=== PATIENT | female | born 1955 | race Caucasian/White ===

== ENCOUNTER 2016-09-19 15:43 | Observation (INO) | payer OTHER ==
[2016-09-19] MEDS ORDERED: SODIUM CHLORIDE 0.9% 1,000 ML IV STA (16:13)
[2016-09-19] MEDS ORDERED: SODIUM CHLORIDE 0.9% 500 ML IV STA (16:13)
--- NOTE | 2016-09-19 16:17 | ED ---
SOB HPI - General Chief Complaint: Shortness of Breath Stated Complaint: SOB Chest Pain Time Seen by Provider: 09/19/16 15:56 Source: patient, EMS Mode of arrival: EMS Limitations: no limitations - History of Present Illness Initial Comments: She came in with the shortness of breath any chest pain, chest pain started last night and chest pain is worse when she takes a deep breaths also she is coughing bringing up some phlegm, denies any fever no chills. No headaches no migraines no abdominal pain no frequency urgency dysuria dysuria no sinus symptoms of TIA or CVA - Related Data Home Medications Medication Instructions Recorded Confirmed levETIRAcetam [Keppra] 1,000 mg PO BID 12/19/13 09/19/16 Epitol 200 mg PO BID 06/30/16 09/19/16 Allergies Allergy/AdvReac Type Severity Reaction Status Date / Time No Known Allergies Allergy Verified 09/19/16 16:38 Review of Systems ROS Statement: Those systems with pertinent positive or pertinent negative responses have been documented in the HPI. ROS Other: All systems not noted in ROS Statement are negative. Past Medical History Past Medical History: COPD, Seizure Disorder Additional Past Medical History / Comment(s): Anemia History of Any Multi-Drug Resistant Organisms: None Reported Past Surgical History: No Surgical Hx Reported Additional Past Surgical History / Comment(s): Lung surgery Past Anesthesia/Blood Transfusion Reactions: No Reported Reaction Past Psychological History: Anxiety Smoking Status: Never smoker Past Alcohol Use History: None Reported Past Drug Use History: None Reported - Past Family History Mother Family Medical History: No Reported History General Exam - General Exam Comments Initial Comments: General: The patient is awake and alert, in no distress, looks pale and tired Skin: Skin is warm and dry and no rashes or lesions are noted. Eye: Pupils are equal, round and reactive to light, extra-ocular movements are intact; there is normal conjunctiva bilaterally. Ears, nose, mouth and throat: There are moist mucous membranes and no oral lesions. Neck: The neck is supple, there is no tenderness or JVD. Cardiovascular: There is a regular rate and rhythm. No murmur, rub or gallop is appreciated. Respiratory: To auscultation bilateral, crease breath sounds bilaterally Gastrointestinal: Soft, non-distended, non-tender abdomen without masses or organomegaly noted. There is no rebound or guarding present. Bowel sounds are unremarkable. Back: There is no tenderness to palpation in the midline. There is no obvious deformity. Musculoskeletal: Normal ROM, no tenderness, There is no pedal edema. There is no calf tenderness or swelling. No cords were appreciated. Neurological: CN II-XII intact, Cranial nerves III through XII are intact. There are no obvious motor or sensory deficits. Coordination appears grossly intact. Speech is normal. Psychiatric: Cooperative, appropriate mood & affect, normal judgment. Limitations: no limitations Course Vital Signs 09/19/16 09/19/16 09/19/16 15:58 16:06 16:48 Temperature 98.1 F Pulse Rate 77 80 Respiratory 18 18 18 Rate Blood Pressure 165/76 177/83 O2 Sat by Pulse 95 100 Oximetry EKG is normal sinus rhythm ventricular rate is 79 IL interval is 174 QRS duration is 70 QT/QTc is 362/450, degree of this EKG does not show any ST elevation or ST depression Medical Decision Making - Lab Data Result diagrams: 09/19/16 15:54 09/19/16 15:54 Lab Results 09/19/16 09/19/16 09/19/16 Range/Units 15:54 15:54 15:54 WBC 5.6 (3.8-10.6) k/uL RBC 3.88 (3.80-5.40) m/uL Hgb 12.2 (11.4-16.0) gm/dL Hct 36.4 (34.0-46.0) % MCV 94.0 (80.0-100.0) fL MCH 31.4 (25.0-35.0) pg MCHC 33.4 (31.0-37.0) g/dL RDW 12.2 (11.5-15.5) % Plt Count 233 (150-450) k/uL Neutrophils % 63 % Lymphocytes % 22 % Monocytes % 11 % Eosinophils % 2 % Basophils % 1 % Neutrophils # 3.5 (1.3-7.7) k/uL Lymphocytes # 1.2 (1.0-4.8) k/uL Monocytes # 0.6 (0-1.0) k/uL Eosinophils # 0.1 (0-0.7) k/uL Basophils # 0.1 (0-0.2) k/uL PT (9.0-12.0) sec INR (<1.1) APTT (22.0-30.0) sec D-Dimer (<0.60) mg/L FEU Sodium 141 (137-145) mmol/L Potassium 3.8 (3.5-5.1) mmol/L Chloride 103 (98-107) mmol/L Carbon Dioxide 27 (22-30) mmol/L Anion Gap 11 mmol/L BUN 10 (7-17) mg/dL Creatinine 0.82 (0.52-1.04) mg/dL Est GFR (MDRD) Af Amer >60 (>60 ml/min/1.73 sqM) Est GFR (MDRD) Non-Af >60 (>60 ml/min/1.73 sqM) Glucose 92 (74-99) mg/dL Calcium 8.4 (8.4-10.2) mg/dL Total Bilirubin 0.3 (0.2-1.3) mg/dL AST 23 (14-36) U/L ALT 28 (9-52) U/L Alkaline Phosphatase 81 (38-126) U/L Total Creatine Kinase 95 (30-135) U/L CK-MB (CK-2) 0.7 (0.0-2.4) ng/mL CK-MB (CK-2) Rel Index 0.7 Troponin I <0.012 (0.000-0.034) ng/mL NT-Pro-B Natriuret Pep pg/mL Total Protein 6.7 (6.3-8.2) g/dL Albumin 3.7 (3.5-5.0) g/dL 09/19/16 09/19/16 Range/Units 15:54 15:54 WBC (3.8-10.6) k/uL RBC (3.80-5.40) m/uL Hgb (11.4-16.0) gm/dL Hct (34.0-46.0) % MCV (80.0-100.0) fL MCH (25.0-35.0) pg MCHC (31.0-37.0) g/dL RDW (11.5-15.5) % Plt Count (150-450) k/uL Neutrophils % % Lymphocytes % % Monocytes % % Eosinophils % % Basophils % % Neutrophils # (1.3-7.7) k/uL Lymphocytes # (1.0-4.8) k/uL Monocytes # (0-1.0) k/uL Eosinophils # (0-0.7) k/uL Basophils # (0-0.2) k/uL PT 9.9 (9.0-12.0) sec INR 1.0 (<1.1) APTT 23.4 (22.0-30.0) sec D-Dimer 0.27 (<0.60) mg/L FEU Sodium (137-145) mmol/L Potassium (3.5-5.1) mmol/L Chloride (98-107) mmol/L Carbon Dioxide (22-30) mmol/L Anion Gap mmol/L BUN (7-17) mg/dL Creatinine (0.52-1.04) mg/dL Est GFR (MDRD) Af Amer (>60 ml/min/1.73 sqM) Est GFR (MDRD) Non-Af (>60 ml/min/1.73 sqM) Glucose (74-99) mg/dL Calcium (8.4-10.2) mg/dL Total Bilirubin (0.2-1.3) mg/dL AST (14-36) U/L ALT (9-52) U/L Alkaline Phosphatase (38-126) U/L Total Creatine Kinase (30-135) U/L CK-MB (CK-2) (0.0-2.4) ng/mL CK-MB (CK-2) Rel Index Troponin I (0.000-0.034) ng/mL NT-Pro-B Natriuret Pep 317 pg/mL Total Protein (6.3-8.2) g/dL Albumin (3.5-5.0) g/dL Critical Care Time Total Critical Care Time: 35 Critical Care Time: I reassessed the patient and [id number], pain has decreased but it hasn't resolved, reviewed all her labs including vitals, d-dimer, troponin, compressive metabolic panel, EKG, chest x-ray x-ray does show some atelectasis is not sure he said early pneumonia she still complaining about left side of the chest right over the pericardium dysuria the pain is considering that and get hold of Dr. Kramer her family doctor at bedtime heparinize her and get a cardiology consult him morphine and nitro did help her I feel under the circumstances this is angina Disposition Clinical Impression: Chest pain, Shortness of breath Disposition: ADMITTED IP TO THIS HOSP Condition: Fair
[2016-09-19] MEDS ORDERED: MORPHINE SULFATE 2 MG/ML SYRINGE IVP ONE (16:19)
[2016-09-19] MEDS ORDERED: MORPHINE SULFATE 2 MG/ML SYRINGE IVP PRN ×2 (16:19→18:30)
[2016-09-19] MEDS ORDERED: NITROGLYCERIN 0.4MG/HR PATCH TRANSDERM STA (16:21)
[2016-09-19 16:31] LABS: Basophils # (A) 0.1 k/uL (0-0.2); Basophils % (A) 1 %; CH 33.2; CHCM 35.5; Eosinophils # (A) 0.1 k/uL (0-0.7); Eosinophils % (A) 2 %; HCT 36.4 % (34.0-46.0); HDW 2.61; HGB 12.2 gm/dL (11.4-16.0); Luc # (Auto) 0.13; Luc % (Auto) 2; Lymphocytes # (A) 1.2 k/uL (1.0-4.8); Lymphocytes % (A) 22 %; MCH 31.4 pg (25.0-35.0); MCHC 33.4 g/dL (31.0-37.0); Mean Platelet Volume 7.5; Monocytes # (A) 0.6 k/uL (0-1.0); Monocytes % (A) 11 %; Neutrophils # (A) 3.5 k/uL (1.3-7.7); Neutrophils % (A) 63 %; RBC 3.88 m/uL (3.80-5.40); RDW 12.2 % (11.5-15.5); WBC 5.6 k/uL (3.8-10.6); WBC (Perox) 6.09
--- NOTE | 2016-09-19 16:31 | XR ---
EXAMINATION TYPE: XR chest 2V DATE OF EXAM: 09/19/2016 4:24 PM HISTORY: Cough and congestion. REFERENCE: Previous study dated 06/30/2016. FINDINGS: There are atelectatic changes at both lung bases as well as in the left midlung. I do not s ee evidence of lobar consolidation. The heart is not enlarged. Pleural spaces are clear. IMPRESSION: BILATERAL AREAS OF ATELECTATIC CHANGE.
[2016-09-19 16:42] LABS: ALT 28 U/L (9-52); AST 23 U/L (14-36); Alkaline Phosphatase 81 U/L (38-126); Anion Gap 11 mmol/L; Blood Urea Nitrogen 10 mg/dL (7-17); Calcium 8.4 mg/dL (8.4-10.2); Carbon Dioxide 27 mmol/L (22-30); Chloride 103 mmol/L (98-107); Glucose 92 mg/dL (74-99); Non-African American GFR(MDRD) >60 (>60 ml/min/1.73 sqM); Potassium 3.8 mmol/L (3.5-5.1); Sodium 141 mmol/L (137-145); Total Bilirubin 0.3 mg/dL (0.2-1.3); Total Protein 6.7 g/dL (6.3-8.2)
[2016-09-19 16:51] LABS: Creatine Kinase 95 U/L (30-135)
[2016-09-19 17:04] LABS: Creatine Kinase MB 0.7 ng/mL (0.0-2.4); Troponin I <0.012 ng/mL (0.000-0.034)
[2016-09-19 17:14] LABS: Partial Thromboplastin Time 23.4 sec (22.0-30.0); Prothrombin Time 9.9 sec (9.0-12.0)
[2016-09-19] MEDS ORDERED: HEPARIN SODIUM,PORCINE/D5W PMX 25,000 UNIT in DEXTROSE/WATER 1 500ML.BAG IV SCH (18:30)
[2016-09-19] MEDS ORDERED: HEPARIN SODIUM,PORCINE 5,000 UNIT/ML 1 ML VIAL IV ONE (18:30)
[2016-09-19] MEDS ORDERED: NITROGLYCERIN SL TABS 0.4 MG TAB SUBLINGUAL PRN (18:30)
[2016-09-19 21:45] VITALS: BMI 22.6
[2016-09-19] MEDS ORDERED: ZOLPIDEM 5 MG TAB PO PRN (21:59)
[2016-09-19] MEDS: ACETAMINOPHEN TAB 325 MG TAB PO PRN (22:13)
[2016-09-19] MEDS: carBAMazepine 200 MG TAB PO SCH (22:14)
[2016-09-19] MEDS: guaiFENesin 600 MG TABLET.ER PO SCH (22:14)
[2016-09-19] MEDS: levETIRAcetam 500 MG TAB PO SCH (22:14)
[2016-09-19] MEDS ORDERED: methylPREDNISolone SOD SUCCI 125 MG/2 ML VIAL IM ONE (22:15)
[2016-09-19 23:07] LABS: Creatine Kinase 78 U/L (30-135)
[2016-09-19 23:21] LABS: Creatine Kinase MB 0.5 ng/mL (0.0-2.4); Troponin I <0.012 ng/mL (0.000-0.034)
[2016-09-19] MEDS: methylPREDNISolone SOD SUCCI 125 MG/2 ML VIAL IV SCH (23:23)
[2016-09-20 04:29] LABS: Creatine Kinase 93 U/L (30-135)
[2016-09-20 04:43] LABS: Creatine Kinase MB 0.6 ng/mL (0.0-2.4); Troponin I <0.012 ng/mL (0.000-0.034)
[2016-09-20 04:44] LABS: Cholesterol 140 mg/dL (<200); HDL Cholesterol 74 mg/dL (40-60); Triglycerides 41 mg/dL (<150)
--- NOTE | 2016-09-20 08:50 | CONS ---
DATE OF CONSULTATION: Bisi is a 61-year-old lady with history of seizure disorder, who came to hospital complaining of chest pain. She states that she has been having cough, nasal congestion for the last one week and had been coughing and has had some sharp, atypical pain associated with cough. She is admitted to hospital with unstable angina and Cardiology had been consulted for the same. The patient does not have exertional angina. There is no history of shortness of breath, paroxysmal nocturnal dyspnea or orthopnea. D-dimer is negative. Three sets of cardiac enzymes are negative. BNP is 317. Past medical history is negative for hypertension, diabetes, dyslipidemia. Medications include Keppra and Epitol. ALLERGIES: There are no known drug allergies. FAMILY HISTORY: Negative for premature coronary artery disease. SOCIAL HISTORY: She denies current smoking, EtOH abuse, or drug abuse. REVIEW OF SYSTEMS: HEENT: Unremarkable. CARDIAC: As described above. RESPIRATORY: Negative. GI: Negative. GENITOURINARY: Negative. ALLERGY/IMMUNOLOGICAL: Negative. MUSCULOSKELETAL: Negative. ENDOCRINE: Negative. HEMATOLOGICAL: Negative. DERMATOLOGICAL: Negative. CONSTITUTIONAL: Negative. The rest of the system review is not relevant. On exam, comfortable at rest. Vital signs are stable. There is no jugular venous distention. Carotid upstroke is normal. There is no bruit. Chest is clear to auscultation and percussion. Heart exam reveals first and second heart sounds. No gallop. No murmur, no rub. Abdomen is soft, nontender. Exam of extremities did not reveal edema. Peripheral pulses are felt. Labs how a hemoglobin of 12.2, platelet count is 233. Potassium is 3.8. Creatinine is 0.82. Three sets of troponins are negative. EKG is unremarkable. LDL is 58. ASSESSMENT: 1. Precordial chest pain, atypical, probably noncardiac. 2. Upper respiratory tract infection that seems to have resolved. PLAN: I am going to obtain a 2-D echocardiogram on her to rule out any pericardial disease and regular treadmill stress test to rule out ischemic heart disease. If this workup is negative, she can be discharged home and outpatient followup arranged through our office. Thank you for allowing us to participate in the care of this pleasant lady.
--- NOTE | 2016-09-20 11:57 | ECHOF ---
Referral Reason:cp MEASUREMENTS -------- HEIGHT: 157.5 cm WEIGHT: 56.7 kg BP: 172/86 RVIDd: 2.3 cm (< 3.3) IVSd: 1.0 cm (0.6 - 1.1) LVIDd: 3.6 cm (3.9 - 5.3) LVPWd: 1.0 cm (0.6 - 1.1) IVSs: 1.2 cm LVIDs: 2.6 cm LVPWs: 1.5 cm LAESV Index (A-L): 25.74 ml/m Ao Diam: 2.6 cm (2.0 - 3.7) AV Cusp: 2.0 cm (1.5 - 2.6) MV EXCURSION: 15.228 mm (> 18.000) MV EF SLOPE: 118 mm/s (70 - 150) EPSS: 0.5 cm MV E Tripp: 0.82 m/s MV DecT: 188 ms MV A Tripp: 0.73 m/s MV E/A Ratio: 1.12 FINDINGS -------- Sinus rhythm. This was a technically good study. The left ventricular size is normal. Left ventricular wall thickness is normal. Overall left ventricular systolic function is normal with, an EF between 60 - 65 %. The right ventricle is normal in size and function. The left atrium is normal in size. Normal LA size by volume 22+/-6 ml/m2. The right atrium is normal in size. The aortic valve is trileaflet and appears structurally normal. Mild mitral regurgitation is present. Trace tricuspid regurgitation present. The pulmonic valve was not well visualized. The aortic root size is normal. Normal inferior vena cava with normal inspiratory collapse consistent with estimated right atrial pressure of 5 mmHg. There is no pericardial effusion. CONCLUSIONS -------- 1. Sinus rhythm. 2. Mild mitral regurgitation is present. 3. Trace tricuspid regurgitation present. 4. The pulmonic valve was not well visualized. 5. The aortic root size is normal. 6. Normal inferior vena cava with normal inspiratory collapse consistent with estimated right atrial pressure of 5 mmHg. 7. There is no pericardial effusion. 8. This was a technically good study. 9. The left ventricular size is normal. 10. Left ventricular wall thickness is normal. 11. Overall left ventricular systolic function is normal with, an EF between 60 - 65 %. 12. The right ventricle is normal in size and function. 13. Normal LA size by volume 22+/-6 ml/m2. 14. The right atrium is normal in size. 15. The aortic valve is trileaflet and appears structurally normal. TIRE MOLDER: Jovana López RDCS
[2016-09-20] MEDS: methylPREDNISolone SOD SUCCI 125 MG/2 ML VIAL IV SCH ×4 (12:22→23:46)
[2016-09-20] MEDS: levETIRAcetam 500 MG TAB PO SCH ×2 (14:27→20:25)
[2016-09-20] MEDS: carBAMazepine 200 MG TAB PO SCH ×2 (14:28→20:25)
[2016-09-20] MEDS: ASPIRIN 325 MG TAB PO SCH (14:29)
[2016-09-20] MEDS: guaiFENesin 600 MG TABLET.ER PO SCH ×2 (14:29→20:25)
[2016-09-20] MEDS: ACETAMINOPHEN TAB 325 MG TAB PO PRN ×2 (14:30→21:23)
--- NOTE | 2016-09-20 14:51 | EST ---
DATE OF SERVICE: 09/20/2016 AGE: 61Y SEX: F HT: 62" WT: 126 lbs. Protocol Fred: X Other: Stage: II Dur. of Exercise: 3:13 *Heart Rate Blood Pressure *Rest: 84 Rest: 177/88 * *Max. Achieved: 144 Maximum BP: 198/97 85% PMHR: 136 100% PMHR: 160 *METS: 3.6 INDICATIONS: Chest pain. MEDICATIONS: Keppra. STRESS DATA: Heart rate 84, pressure is 177/88 mmHg. Baseline EKG shows sinus rhythm. The patient exercised on the treadmill according to Fred protocol for a total of 3 minutes and 13 seconds and achieved 3.6 METs. Max heart rate was 144, which is about 90% of maximum predicted heart rate. Maximum blood pressure was 198/97 mmHg. Clinically, the patient did not have any symptoms of chest pain or discomfort and the EKG did not show any significant ST or T-wave abnormalities consistent with ischemia. CONCLUSION: 1. Poor exercise capacity. 2. Normal EKG in response to exercise.
--- NOTE | 2016-09-20 14:51 | P.HPIM ---
History of Present Illness H&P Date: 09/20/16 Chief Complaint: Shortness of breath, chest pain Patient is a 61-year-old white female, patient of Dr. Turner in the outpatient setting with medical history significant for COPD, anemia, and seizure disorder. Patient presented to the emergency department via EMS with complaints of shortness of breath and chest pain exacerbated with coughing and taking deep breaths 1 day. No history of fevers, chills, abdominal pain, urinary urgency, dysuria, or hematuria. EKG on admission with evidence of normal sinus rhythm but no evidence of ST elevation or depression. Chest x-ray with evidence of bilateral areas of atelectatic changes at both lung bases as well as in the mid left lung with no evidence of lobar consolidation. Admission labs unremarkable. Troponins negative 3. Patient was admitted to the selective care unit on IV heparin with consult to cardiology. Upon examination, patient complains of headache, cough, and congestion. Patient complains of left pleuritic pain with cough. Denies chills, fevers, nausea, vomiting, abdominal pain, leg swelling, numbness or tingling. Cardiology has seen and evaluated patient and patient is scheduled for a stress test. Patient did have an echocardiogram with evidence of preserved left ventricular systolic function with an EF between 60-65%. Past Medical History Past Medical History: COPD, Seizure Disorder Additional Past Medical History / Comment(s): Anemia History of Any Multi-Drug Resistant Organisms: None Reported Past Surgical History: No Surgical Hx Reported Additional Past Surgical History / Comment(s): Lung surgery, ENLARGED LYMPH NODE REMOVED BY DR. LUNDBERG Past Anesthesia/Blood Transfusion Reactions: No Reported Reaction Past Psychological History: Anxiety Smoking Status: Never smoker Past Alcohol Use History: None Reported Past Drug Use History: None Reported - Past Family History Mother Family Medical History: No Reported History Medications and Allergies Home Medications Medication Instructions Recorded Confirmed Type levETIRAcetam [Keppra] 1,000 mg PO BID 12/19/13 09/19/16 History Epitol 200 mg PO BID 06/30/16 09/19/16 History Allergies Allergy/AdvReac Type Severity Reaction Status Date / Time No Known Allergies Allergy Verified 09/19/16 16:38 Physical Exam Vitals: Vital Signs Temp Pulse Pulse Resp BP BP Pulse Ox 09/20/16 13:25 99 09/20/16 11:35 97.5 F L 72 16 141/74 99 09/20/16 07:55 97.9 F 83 16 138/80 99 09/20/16 03:35 97.4 F L 74 18 116/62 95 09/19/16 23:03 97.9 F 75 18 157/72 96 09/19/16 20:56 97.6 F 78 18 129/72 97 09/19/16 18:46 98.1 F 78 18 145/77 97 Intake and Output 09/19/16 09/20/16 09/20/16 22:59 06:59 14:59 Intake Total 13.49 187.131 Balance 13.49 187.131 Intake: IV 13.49 94.5 Heparin Sodium,Porcine/ 13.49 94.5 D5w Pmx 25,000 unit In Dextrose/Water 1 500ml. bag @ 12 UNITS/KG/HR 13. 49 mls/hr IV .Q24H JESSICA Rx #:[id number] Intake, IV Titration 92.631 Amount Heparin Sodium,Porcine/ 92.631 D5w Pmx 25,000 unit In Dextrose/Water 1 500ml. bag @ 12 UNITS/KG/HR 13. 49 mls/hr IV .Q24H JESSICA Rx #:[id number] Other: Voiding Method Toilet Toilet # Voids 1 Weight 56.245 kg 56.8 kg GENERAL: Pt awake and alert, lying in bed, appears tired, in no acute distress. HEAD: Atraumatic, normocephalic. EYES: Pupils equal, round, and reactive to light, extraocular movements intact, sclera anicteric, conjunctiva are normal. ENT: Oropharynx clear without exudates. Moist mucous membranes. NECK:Normal range of motion, supple without lymphadenopathy or JVD. LUNGS: Breath sounds diminished with fine crackles to posterior lobes bilaterally. Cough harsh. HEART: Heart S1, S2, no S3 or S4. Regular rate and rhythm. No murmurs, rubs or gallops. ABDOMEN: Soft, nontender, nondistended, normoactive bowel sounds. No guarding, no rebound. EXTREMITIES: 2+ peripheral pulses. No edema. No calf tenderness. NEUROLOGICAL: Pt oriented x 3. No focal deficits. Strength and sensation grossly intact. Speech is normal. PSYCH: Appropriate mood, normal affect, cooperative, normal judgment. SKIN: Warm, dry, intact. Normal turgor. No rashes or lesions. Results CBC & Chem 7: 09/19/16 15:54 09/19/16 15:54 Labs: Abnormal Lab Results - Last 24 Hours (Table) 09/20/16 09/20/16 09/20/16 Range/Units 01:01 03:40 06:35 APTT 54.8 H 47.9 H (22.0-30.0) sec HDL Cholesterol 74 H (40-60) mg/dL Chest x-ray: report reviewed Thrombosis Risk Factor Assmnt - DVT/VTE Prophylaxis DVT/VTE Prophylaxis: Pharmacologic Prophylaxis ordered - Choose All That Apply Any of the Below Risk Factors Present?: Yes Each Factor Represents 1 point: Abnormal pulmonary function (COPD), Age 41-60 years Other Risk Factors: No Thrombosis Risk Factor Assessment Total Risk Factor Score: 2 Thrombosis Risk Factor Assessment Level: Low Risk Assessment and Plan Plan: Impression and plan: 1. Chest discomfort, present on admission, doubt cardiac in nature. Troponins [address] negative. [address] with no ST-T elevation or depression. Cardiology has seen and evaluated patient. Patient is scheduled to undergo stress test. 2. Cough and congestion suspect secondary to tracheobronchitis. Patient afebrile. Chest x-ray with evidence of atelectasis without focal consolidation. Continue Mucinex, start patient on IV Solu-Medrol 60 mg every 6 hours. Continue IV hydration. Obtain pulmonary consult. 3. Dyslipidemia. 4. History of COPD. 5. History of seizure disorder. Continue Tegretol and Keppra. 6. History of anxiety. 7. GI prophylaxis. Continue Pepcid. 8. DVT prophylaxis. Continue heparin. 9. Repeat CBC and BMP in a.m. The above impression and plan have been discussed and directed by Dr. Turner. Claritza JUAREZ acting as scribe for Dr. Turner.
[2016-09-20 16:58] LABS: Glucose,Whole Blood 121 mg/dL (75-99)
[2016-09-20] MEDS: INSULIN LISPRO (humaLOG) 300 UNIT/3 ML VIAL SQ SCH ×2 (17:37→21:13)
[2016-09-20 18:28] LABS: Hemoglobin A1C 5.4 % (4.2-6.1)
--- NOTE | 2016-09-20 20:27 | CONS ---
DATE OF CONSULTATION: REASON FOR CONSULTATION: Acute COPD exacerbation and shortness of breath. HISTORY OF PRESENTING ILLNESS: Ms. Bisi Devlin is seen, evaluated and examined. This is a 61-year-old female who presented into the emergency department with increasing shortness of breath and not feeling well. The patient symptoms predominantly started several days ago and has been progressive to a point that started having some chest tightness. With those problems patient presented to the emergency department and was evaluated and subsequently admitted to the hospital. Past medical history is significant for seizure disorder and chronic obstructive pulmonary disease. PAST SURGICAL HISTORY: Unremarkable. FAMILY HISTORY AND SOCIAL HISTORY: Otherwise unremarkable and noncontributory. Denies any smoking, ethanol abuse. ALLERGIES: No known drug allergy. Medications at home include: 1. Epitol 200 mg 2 times a day. 2. Levetiracetam 1 gram 2 times a day. REVIEW OF SYSTEMS: Otherwise unremarkable and noncontributory. SHOW DESIGN SUPERVISOR: Denies any loss of consciousness, hemiparesis. CARDIORESPIRATORY: As dictated above, significant cough, congestion, chest pain and chest tightness. GI/: Otherwise unremarkable and noncontributory. Musculoskeletal/dermatological: Unremarkable and noncontributory. MEDICATIONS: Currently include: 1. Tylenol as needed. 2. Aspirin 325 mg daily. 3. Tegretol 200 b.i.d. 2 times a day. 4. Mucinex two times a day. 5. Subcu heparin for DVT prophylaxis. 6. Sliding scale insulin. 7. Keppra 1 gram 2 times a day. 8. Solu-Medrol 60 q.6 hourly. 9. Morphine 2 mg q.4 p.r.n. 10. Also on Ambien. On examination, most recent vitals include blood pressure is 139/77, respiratory rate 16 to 18, heart rate is 97, temperature 97, saturation of 99% on room air. HEENT: Otherwise unremarkable. NECK: Supple without lymphadenopathy or jugular venous distention or carotid bruits. LUNGS: Bilateral good air entry is present, expiratory wheezing and rhonchi are present. HEART: Regular rate and rhythm. S1 and S2 audible. ABDOMEN: Soft. No rebound or rigidity. EXTREMITIES: +1 peripheral pulses. NEUROLOGICAL EXAMINATION: Otherwise, awake and alert. No focal neurological deficit. Chest x-ray suggestive of possible left lower lobe mid lung field pneumonia versus atelectasis. Other laboratory data reviewed include echocardiogram revealed ejection fraction of 60 to 65% otherwise, fairly unremarkable. Labs are reviewed. CBC is within normal limits. Glucose 121. Chemistry also within normal limits. HDL is 74. IMPRESSION: 1. Left lower lobe pneumonia. Would recommend the patient start on Zithromax and Rocephin. Continue steroids and breathing treatments. Will check patient for influenza A and B as well. 2. History of seizure disorder. Overall is stable. 3. Chest pain likely related to above. PLAN AND RECOMMENDATION: As above. Continue supportive care. Cardiovascular service is following this patient closely. Would check d-dimer as well. If it is elevated, consider doing a spiral CT scan of the chest pain.
[2016-09-20 20:28] LABS: Glucose,Whole Blood 165 mg/dL (75-99)
[2016-09-20] MEDS: HEPARIN SODIUM,PORCINE 5,000 UNIT/ML 1 ML VIAL SQ SCH (21:13)
[2016-09-21] MEDS: methylPREDNISolone SOD SUCCI 125 MG/2 ML VIAL IV SCH ×2 (05:22→11:11)
[2016-09-21 06:08] LABS: Glucose,Whole Blood 120 mg/dL (75-99)
[2016-09-21 06:53] LABS: Glucose,Whole Blood 120 mg/dL (75-99)
[2016-09-21] MEDS: INSULIN LISPRO (humaLOG) 300 UNIT/3 ML VIAL SQ SCH ×4 (08:04→21:31)
[2016-09-21] MEDS: carBAMazepine 200 MG TAB PO SCH ×2 (08:05→20:09)
[2016-09-21] MEDS: AZITHROMYCIN 250 MG TAB PO SCH (08:05)
[2016-09-21] MEDS: ASPIRIN 325 MG TAB PO SCH (08:05)
[2016-09-21] MEDS: HEPARIN SODIUM,PORCINE 5,000 UNIT/ML 1 ML VIAL SQ SCH ×2 (08:05→20:08)
[2016-09-21] MEDS: guaiFENesin 600 MG TABLET.ER PO SCH ×2 (08:05→20:09)
[2016-09-21] MEDS: levETIRAcetam 500 MG TAB PO SCH ×2 (08:05→20:08)
[2016-09-21 08:06] LABS: Basophils % (A) 0 %; CH 32.8; CHCM 34.4; Eosinophils % (A) 0 %; HDW 2.64; Luc # (Auto) 0.04; Luc % (Auto) 1; Lymphocytes % (A) 12 %; MCHC 33.3 g/dL (31.0-37.0); Mean Platelet Volume 7.4; Monocytes # (A) 0.2 k/uL (0-1.0); Monocytes % (A) 2 %; Neutrophils # (A) 6.8 k/uL (1.3-7.7); Neutrophils % (A) 85 %; RBC 3.75 m/uL (3.80-5.40); WBC (Perox) 8.75
[2016-09-21 08:19] LABS: Anion Gap 15 mmol/L; Blood Urea Nitrogen 12 mg/dL (7-17); Calcium 9.1 mg/dL (8.4-10.2); Carbon Dioxide 23 mmol/L (22-30); Chloride 105 mmol/L (98-107); Glucose 123 mg/dL (74-99); Non-African American GFR(MDRD) >60 (>60 ml/min/1.73 sqM); Potassium 3.8 mmol/L (3.5-5.1); Sodium 143 mmol/L (137-145)
[2016-09-21 11:59] LABS: Glucose,Whole Blood 88 mg/dL (75-99)
--- NOTE | 2016-09-21 12:45 | PN ---
Bisi Devlin is seen, evaluated, examined. She is a 61-year-old female with problems associated with cough, congestion, shortness of breath. She is doing slightly better now and chest pain is improved. Blood pressure 150/70, respiratory rate 16, pulse 90, temperature 98, saturation of 98% on room air. HEENT: Unremarkable. NECK: Supple. LUNGS: Good air entry bilaterally. HEART: Regular rate and rhythm. S1 and S2 audible. ABDOMEN: Soft. No rebound or rigidity. EXTREMITIES: +1 peripheral pulses. NEUROLOGICAL EXAMINATION: Awake and alert. On forced expiration, fine wheezing are present. LABORATORY DATA: Reviewed. White cell count 8000, hemoglobin 12, hematocrit 36, platelets 344,000. Chemistry within normal limits. Influenza A and B are both negative. Last chest x-ray performed revealed bibasilar pneumonia. IMPRESSION: Pneumonia. Continue antibiotics, breathing and steroids for now. Continue supportive care. Hopefully in next 24 hours will lower down the dose of steroids. Other issues include seizure disorder, overall stable. Will follow.
[2016-09-21] MEDS ORDERED: SODIUM CHLORIDE 0.65% NASAL SPRAY 44 ML BTL NASAL PRN (13:33)
--- NOTE | 2016-09-21 14:11 | P.PN ---
Subjective Principal diagnosis: Pneumonia, community acquired Patient is a 61-year-old white female, patient of Dr. Turner in the outpatient setting with medical history significant for COPD, anemia, and seizure disorder. Patient presented to the emergency department via EMS with complaints of shortness of breath and chest pain exacerbated with coughing and taking deep breaths 1 day. No history of fevers, chills, abdominal pain, urinary urgency, dysuria, or hematuria. EKG on admission with evidence of normal sinus rhythm but no evidence of ST elevation or depression. Chest x-ray with evidence of bilateral areas of atelectatic changes at both lung bases as well as in the mid left lung with no evidence of lobar consolidation. Admission labs unremarkable. Troponins negative 3. Patient was admitted to the selective care unit on IV heparin with consult to cardiology. Patient underwent a cardiac stress test which was negative. Echocardiogram showed preserved left ventricular systolic function with an EF between 60-65%. Dr. Batres from pulmonary service was consulted and patient was started on Zithromax and Rocephin for possible mid left lung and left lower lobe pneumonia. Patient did test negative for influenza A and B. Upon examination, patient is feeling better. Patient states she did cough up yellow sputum. Patient states her pleuritic chest pain has mostly resolved. Denies chills, fevers, nausea, vomiting, or abdominal pain. Patient reports good appetite. Objective - Vital Signs Vital signs: Vital Signs Temp 98.7 F 09/21/16 07:00 Pulse 90 09/21/16 07:00 Resp 16 09/21/16 07:00 BP 149/70 09/21/16 07:00 Pulse Ox 98 09/21/16 07:00 Intake & Output 09/20/16 09/21/16 09/21/16 18:59 06:59 18:59 Other: # Voids 2 - Exam GENERAL: Pt awake and alert, lying in bed, appears tired, in no acute distress. HEAD: Atraumatic, normocephalic. EYES: Pupils equal, round, and reactive to light, sclera anicteric, conjunctiva are normal. ENT: Moist mucous membranes. NECK:Supple without lymphadenopathy or JVD. LUNGS: Breath sounds diminished with fine crackles to posterior lobes bilaterally. HEART: Heart S1, S2, no S3 or S4. Regular rate and rhythm. No murmurs, rubs or gallops. ABDOMEN: Soft, nontender, nondistended, normoactive bowel sounds. No guarding, no rebound. EXTREMITIES: 2+ peripheral pulses. Trace edema to bilateral lower extremities. No calf tenderness. NEUROLOGICAL: Pt oriented x 3. No focal deficits. Strength and sensation grossly intact. Speech is normal. PSYCH: Appropriate mood, normal affect, cooperative, normal judgment. SKIN: Warm, dry, intact. Normal turgor. No rashes or lesions. - Labs CBC & Chem 7: 09/21/16 07:44 09/21/16 07:44 Assessment and Plan Plan: Impression and plan: 1. Chest discomfort, present on admission, suspect secondary to costochondritis. Troponins [address] negative[address] with no ST-T elevation or depression. Cardiology has seen and evaluated patient. Stress test negative. 2. Suspect left mid lung and left lower lobe pneumonia, community acquired. Continue antibiotics, decrease IV Solu-Medrol to 40 mg every 8 hours, continue Mucinex, continue nebulized updrafts, continue IV hydration. 3. Dyslipidemia. 4. History of COPD. 5. History of seizure disorder. Continue Tegretol and Keppra. 6. History of anxiety. 7. GI prophylaxis. Continue Pepcid. 8. DVT prophylaxis. Continue subcu heparin. 9. Repeat CBC and BMP in a.m. The above impression and plan have been discussed and directed by Dr. Turner. Claritza JUAREZ acting as scribe for Dr. Turner.
[2016-09-21] MEDS: ACETAMINOPHEN TAB 325 MG TAB PO PRN (16:11)
[2016-09-21 17:16] LABS: Glucose,Whole Blood 100 mg/dL (75-99)
[2016-09-21 21:09] LABS: Glucose,Whole Blood 103 mg/dL (75-99)
[2016-09-21] MEDS: methylPREDNISolone SOD SUCCI 40 MG/ML 1 ML VIAL IV SCH (23:10)
[2016-09-22 02:38] LABS: Basophils % (A) 0 %; CH 32.6; CHCM 34.3; Eosinophils # (A) 0.1 k/uL (0-0.7); Eosinophils % (A) 1 %; HCT 32.8 % (34.0-46.0); HGB 11.3 gm/dL (11.4-16.0); Luc # (Auto) 0.11; Luc % (Auto) 1; Lymphocytes # (A) 1.2 k/uL (1.0-4.8); Lymphocytes % (A) 15 %; MCHC 34.5 g/dL (31.0-37.0); MCV 95.6 fL (80.0-100.0); Monocytes # (A) 0.3 k/uL (0-1.0); Monocytes % (A) 4 %; Neutrophils # (A) 6.3 k/uL (1.3-7.7); Neutrophils % (A) 79 %; RBC 3.43 m/uL (3.80-5.40); RDW 12.2 % (11.5-15.5); WBC 7.9 k/uL (3.8-10.6); WBC (Perox) 7.85
[2016-09-22 02:57] LABS: Anion Gap 9 mmol/L; Blood Urea Nitrogen 19 mg/dL (7-17); Calcium 8.8 mg/dL (8.4-10.2); Carbon Dioxide 27 mmol/L (22-30); Chloride 105 mmol/L (98-107); Glucose 117 mg/dL (74-99); Non-African American GFR(MDRD) >60 (>60 ml/min/1.73 sqM); Sodium 141 mmol/L (137-145)
[2016-09-22 07:35] LABS: Glucose,Whole Blood 116 mg/dL (75-99)
[2016-09-22 07:39] VITALS: BP 159/84; PULSE 88; RESP 20; TEMP 96.9
[2016-09-22] MEDS: INSULIN LISPRO (humaLOG) 300 UNIT/3 ML VIAL SQ SCH ×2 (07:46→13:28)
[2016-09-22] MEDS: methylPREDNISolone SOD SUCCI 40 MG/ML 1 ML VIAL IV SCH (07:50)
[2016-09-22] MEDS: levETIRAcetam 500 MG TAB PO SCH (07:50)
[2016-09-22] MEDS: HEPARIN SODIUM,PORCINE 5,000 UNIT/ML 1 ML VIAL SQ SCH (07:50)
[2016-09-22] MEDS: guaiFENesin 600 MG TABLET.ER PO SCH (07:50)
[2016-09-22] MEDS: AZITHROMYCIN 250 MG TAB PO SCH (07:50)
[2016-09-22] MEDS: ASPIRIN 325 MG TAB PO SCH (07:50)
[2016-09-22] MEDS: carBAMazepine 200 MG TAB PO SCH (07:51)
[2016-09-22] MEDS: ACETAMINOPHEN TAB 325 MG TAB PO PRN (08:01)
[2016-09-22 12:33] LABS: Glucose,Whole Blood 98 mg/dL (75-99)
--- NOTE | 2016-09-22 14:21 | P.DS ---
Providers Date of admission: 09/21/16 12:49 Expected date of discharge: 09/22/16 Attending physician: Jordi Turner Consults: Cardiology and Dr. Batres from pulmonary service Primary care physician: [facility] Course: Patient is a 61-year-old white female, patient of Dr. Turner in the outpatient setting with medical history significant for COPD, anemia, and seizure disorder. Patient presented to the emergency department via EMS with complaints of shortness of breath and chest pain exacerbated with coughing and taking deep breaths 1 day. No history of fevers, chills, abdominal pain, urinary urgency, dysuria, or hematuria. EKG on admission with evidence of normal sinus rhythm but no evidence of ST elevation or depression. Chest x-ray with evidence of bilateral areas of atelectatic changes at both lung bases as well as in the mid left lung with no evidence of lobar consolidation. Admission labs unremarkable. Troponins negative 3. Patient was admitted to the selective care unit on IV heparin with consult to cardiology. Patient underwent a cardiac stress test which was negative. Echocardiogram showed preserved left ventricular systolic function with an EF between 60-65%. Dr. Batres from pulmonary service was consulted and patient was started on Zithromax and Rocephin for possible mid left lung and left lower lobe pneumonia. Patient did test negative for influenza A and B. patient improved significantly with IV antibiotics, IV steroids, nebulized updraft treatments, IV hydration, supportive treatment and pain management. Patient was felt stable for discharge to home with close follow-up in the outpatient setting. Discharge diagnoses: 1. Chest discomfort, present on admission, suspect secondary to costochondritis. 2. Suspect left mid lung and left lower lobe pneumonia, community acquired. 3. Dyslipidemia. 4. COPD. 5. Seizure disorder. Continue Tegretol and Keppra. 6. History of anxiety. The above impression and plan have been discussed and directed by Dr. Turner. Claritza JUAREZ acting as scribe for Dr. Turner. Pertinent Studies: EKG; chest x-ray; echocardiogram with Doppler; stress test Patient Condition at Discharge: Good Plan - Discharge Summary New Discharge Prescriptions: Amoxic-Pot Clav 875-125Mg [Augmentin 875-125] 1 tab PO Q12HR #14 tablet Azithromycin [Zithromax] 500 mg PO DAILY #3 tab guaiFENesin [Mucinex] 600 mg PO Q12HR #20 tablet.er predniSONE 0 mg PO DIRECTED #30 tab Discharge Medication List levETIRAcetam [Keppra] 1,000 mg PO BID 12/19/13 [History] Epitol 200 mg PO BID 06/30/16 [History] Amoxic-Pot Clav 875-125Mg [Augmentin 875-125] 1 tab PO Q12HR #14 tablet [Rx] Azithromycin [Zithromax] 500 mg PO DAILY #3 tab 09/22/16 [Rx] Sodium Chloride 0.65% Nasal [Deep Sea] 2 spray NASAL QID PRN #0 spray 09/22/16 [ Rx] guaiFENesin [Mucinex] 600 mg PO Q12HR #20 tablet.er 09/22/16 [Rx] predniSONE 0 mg PO DIRECTED #30 tab 09/22/16 [Rx] Follow up Appointment(s)/Referral(s): Alexis Kramer Jr, DO [Primary Care Provider] - 09/26/16 11:00 am Armando Batres MD [STAFF PHYSICIAN] - 09/29/16 (Office currently closed, please call to schedule appointment. ) Esteban Torres MD [STAFF PHYSICIAN] - 10/18/16 2:45 pm Patient Instructions/Handouts: Community Acquired Pneumonia (DC) Activity/Diet/Wound Care/Special Instructions: Regular diet Discharge Disposition: HOME SELF-CARE
== END 2016-09-22 14:13 | disposition home or self-care (01) ==
LOC: EC 15:43 → 6SEL 18:34 → 4MS4W 09-20 17:03 → OBSVTOIN 09-21 12:49 → INTOOBSV 09-21 12:49
PROVIDERS: ADMIT Family Medicine; ATTEND Family Medicine
DX: R07.89 Other chest pain (principal); R06.02 Shortness of breath; J44.9 Chronic obstructive pulmonary disease, unspecified; J98.11 Atelectasis; E78.5 Hyperlipidemia, unspecified; G40.909 Epilepsy, unspecified, not intractable, without status epilepticus; Z79.899 Other long term (current) drug therapy
CPT/HCPCS: 96365; 96366; 96375; 96376; 96361; 99291; 36415; 94760; 93005; 93017; 93306; 85379 ×2; 83880; 80061; 80053; 80048 ×2; 83036; 82550 ×2; 82553 ×2; 83605; 84484 ×2; 85025 ×3; 85610; 85730 ×2; 87502; 71020; G0378 ×5; J1644 ×5; J2920 ×2; J2930 ×2; J0696 ×3; J2270; 96367; 96372

== ENCOUNTER 2016-11-01 20:02 | Emergency (ER) | payer OTHER ==
[2016-11-01] MEDS ORDERED: SODIUM CHLORIDE 0.9% 500 ML IV STA (20:34)
[2016-11-01 20:55] LABS: Basophils # (A) 0.1 k/uL (0-0.2); Basophils % (A) 1 %; CH 32.7; Eosinophils # (A) 0.1 k/uL (0-0.7); Eosinophils % (A) 1 %; HCT 32.6 % (34.0-46.0); HDW 2.68; HGB 11.2 gm/dL (11.4-16.0); Luc # (Auto) 0.15; Luc % (Auto) 3; Lymphocytes # (A) 1.1 k/uL (1.0-4.8); Lymphocytes % (A) 19 %; MCH 32.2 pg (25.0-35.0); MCHC 34.4 g/dL (31.0-37.0); MCV 93.6 fL (80.0-100.0); Mean Platelet Volume 7.4; Monocytes # (A) 0.4 k/uL (0-1.0); Monocytes % (A) 8 %; Neutrophils # (A) 3.9 k/uL (1.3-7.7); Neutrophils % (A) 68 %; RBC 3.48 m/uL (3.80-5.40); RDW 12.2 % (11.5-15.5); WBC 5.6 k/uL (3.8-10.6); WBC (Perox) 5.95
[2016-11-01 21:03] LABS: Prothrombin Time 10.4 sec (9.0-12.0)
[2016-11-01 21:06] LABS: ALT 28 U/L (9-52); AST 25 U/L (14-36); Alkaline Phosphatase 82 U/L (38-126); Anion Gap 8 mmol/L; Blood Urea Nitrogen 8 mg/dL (7-17); Calcium 8.5 mg/dL (8.4-10.2); Carbon Dioxide 25 mmol/L (22-30); Chloride 108 mmol/L (98-107); Glucose 91 mg/dL (74-99); Magnesium 2.1 mg/dL (1.6-2.3); Non-African American GFR(MDRD) >60 (>60 ml/min/1.73 sqM); Potassium 3.9 mmol/L (3.5-5.1); Sodium 141 mmol/L (137-145); Total Bilirubin 0.4 mg/dL (0.2-1.3); Total Protein 6.6 g/dL (6.3-8.2)
[2016-11-01 21:10] LABS: Creatine Kinase 108 U/L (30-135)
--- NOTE | 2016-11-01 21:22 | ED ---
General Adult HPI - General Chief complaint: Shortness of Breath Stated complaint: hypertension,SOB Time Seen by Provider: 11/01/16 20:26 Source: patient, EMS, RN notes reviewed Mode of arrival: EMS Limitations: no limitations - History of Present Illness Initial comments: 61-year-old female presents to the emergency department with chief complaint of concern for memory lapses. Patient states that about a month ago she was diagnosed with pneumonia. Patient states that she also developed some rib issues due to continuing coughing during the pneumonia. Patient states that the symptoms have seemed to be improving however over the last 2 days she has been noticing that she will have lapses in memory. Patient states the front door to visit her today and she has even remember that happening. Patient states that she has a mild headache she states that she has mild shortness of breath but everything seems to be stable when she got sick except for these new memory losses. Patient states this time she does not have any difficulties with memories. Patient denies any history of any memory issues in the past. Patient states she was concerned due to her continued symptoms that she thought that she should be evaluated. Patient denies any recent fever, chills, shortness of breath, chest pain, back pain, abdominal pain, nausea vomiting, numbness or tingling, dysuria or hematuria, constipation or diarrhea, headaches or visual changes, or any other current symptoms. - Related Data Home Medications Medication Instructions Recorded Confirmed levETIRAcetam [Keppra] 1,000 mg PO BID 12/19/13 11/01/16 Epitol 200 mg PO BID 06/30/16 11/01/16 Previous Rx's Medication Instructions Recorded Levofloxacin [Levaquin] 500 mg PO DAILY #10 tab 11/01/16 Allergies Allergy/AdvReac Type Severity Reaction Status Date / Time No Known Allergies Allergy Verified 11/01/16 20:11 Review of Systems ROS Statement: Those systems with pertinent positive or pertinent negative responses have been documented in the HPI. ROS Other: All systems not noted in ROS Statement are negative. Past Medical History Past Medical History: COPD, Seizure Disorder Additional Past Medical History / Comment(s): Anemia History of Any Multi-Drug Resistant Organisms: None Reported Past Surgical History: No Surgical Hx Reported Additional Past Surgical History / Comment(s): Lung surgery, ENLARGED LYMPH NODE REMOVED BY DR. LUNDBERG Past Anesthesia/Blood Transfusion Reactions: No Reported Reaction Past Psychological History: Anxiety Smoking Status: Never smoker Past Alcohol Use History: None Reported Past Drug Use History: None Reported - Past Family History Mother Family Medical History: No Reported History General Exam - General Exam Comments Initial Comments: General: The patient is awake and alert, in no distress, and does not appear acutely ill. Eye: Pupils are equal, round and reactive to light, extra-ocular movements are intact; there is normal conjunctiva bilaterally. No signs of icterus. Ears, nose, mouth and throat: There are moist mucous membranes and no oral lesions. Neck: The neck is supple, there is no tenderness. Cardiovascular: There is a regular rate and rhythm. No murmur, rub or gallop is appreciated. Respiratory: Lungs are clear to auscultation, respirations are non-labored, breath sounds are equal. No wheezes, stridor, rales, or rhonchi. Gastrointestinal: Soft, non-distended, non-tender abdomen without masses or organomegaly noted. There is no rebound or guarding present. No CVA tenderness. Bowel sounds are unremarkable. Back: There is no tenderness to palpation in the midline. There is no obvious deformity. No rashes noted. Musculoskeletal: Normal ROM, no tenderness, There is no pedal edema. There is no calf tenderness or swelling. Sensation intact. Pulses equal bilaterally 2+. Neurological: CN II-XII intact, There are no obvious motor or sensory deficits. Coordination appears grossly intact. Speech is normal. Skin: Skin is warm and dry and no rashes or lesions are noted. Psychiatric: Cooperative, appropriate mood & affect, normal judgment. Limitations: no limitations Course Vital Signs 11/01/16 11/01/16 20:11 22:08 Temperature 98.9 F 98.6 F Pulse Rate 82 68 Respiratory 20 16 Rate Blood Pressure 166/84 167/71 O2 Sat by Pulse 100 99 Oximetry EKG Findings - EKG Comments: EKG Findings:: normal sinus rhythm 78 bpm, normal axis, no atopy, no S-T depressions or elevations, Medical Decision Making - Medical Decision Making 61-year-old female presents for concern about memory. It isn't patient is found of UTI which is most likely causing the patient's memory changes. We did contact Dr. Luis Hou regarding the case regarding admission and he states that he like to the patient to be sent home. At this time we discussed this with the patient and she states that she will go home if it is his request. We discussed that he would like to see her in the morning for reevaluation. We discussed that we will start her on Rocephin here and give her Levaquin for home. Patient stated that she understood and is in agreement the plan. All questions have been answered. She will be discharged. - Lab Data Result diagrams: 11/01/16 20:45 11/01/16 20:45 Lab Results 11/01/16 11/01/16 11/01/16 Range/Units 20:45 20:45 20:45 WBC 5.6 (3.8-10.6) k/uL RBC 3.48 L (3.80-5.40) m/uL Hgb 11.2 L (11.4-16.0) gm/dL Hct 32.6 L (34.0-46.0) % MCV 93.6 (80.0-100.0) fL MCH 32.2 (25.0-35.0) pg MCHC 34.4 (31.0-37.0) g/dL RDW 12.2 (11.5-15.5) % Plt Count 322 (150-450) k/uL Neutrophils % 68 % Lymphocytes % 19 % Monocytes % 8 % Eosinophils % 1 % Basophils % 1 % Neutrophils # 3.9 (1.3-7.7) k/uL Lymphocytes # 1.1 (1.0-4.8) k/uL Monocytes # 0.4 (0-1.0) k/uL Eosinophils # 0.1 (0-0.7) k/uL Basophils # 0.1 (0-0.2) k/uL PT (9.0-12.0) sec INR (<1.1) APTT (22.0-30.0) sec Sodium 141 (137-145) mmol/L Potassium 3.9 (3.5-5.1) mmol/L Chloride 108 H (98-107) mmol/L Carbon Dioxide 25 (22-30) mmol/L Anion Gap 8 mmol/L BUN 8 (7-17) mg/dL Creatinine 0.71 (0.52-1.04) mg/dL Est GFR (MDRD) Af Amer >60 (>60 ml/min/1.73 sqM) Est GFR (MDRD) Non-Af >60 (>60 ml/min/1.73 sqM) Glucose 91 (74-99) mg/dL Calcium 8.5 (8.4-10.2) mg/dL Magnesium 2.1 (1.6-2.3) mg/dL Total Bilirubin 0.4 (0.2-1.3) mg/dL AST 25 (14-36) U/L ALT 28 (9-52) U/L Alkaline Phosphatase 82 (38-126) U/L Total Creatine Kinase 108 (30-135) U/L CK-MB (CK-2) 0.7 (0.0-2.4) ng/mL CK-MB (CK-2) Rel Index 0.6 Troponin I <0.012 (0.000-0.034) ng/mL Total Protein 6.6 (6.3-8.2) g/dL Albumin 3.6 (3.5-5.0) g/dL Urine Color Urine Appearance (Clear) Urine pH (5.0-8.0) Ur Specific [place] (1.001-1.035) Urine Protein (Negative) Urine Glucose (UA) (Negative) Urine Ketones (Negative) Urine Blood (Negative) Urine Nitrite (Negative) Urine Bilirubin (Negative) Urine Urobilinogen (<2.0) mg/dL Ur Leukocyte Esterase (Negative) Urine RBC (0-5) /hpf Urine WBC (0-5) /hpf Ur Squamous Epith Cells (0-4) /hpf Urine Bacteria (None) /hpf Urine Mucus (None) /hpf 11/01/16 11/01/16 Range/Units 20:45 20:58 WBC (3.8-10.6) k/uL RBC (3.80-5.40) m/uL Hgb (11.4-16.0) gm/dL Hct (34.0-46.0) % MCV (80.0-100.0) fL MCH (25.0-35.0) pg MCHC (31.0-37.0) g/dL RDW (11.5-15.5) % Plt Count (150-450) k/uL Neutrophils % % Lymphocytes % % Monocytes % % Eosinophils % % Basophils % % Neutrophils # (1.3-7.7) k/uL Lymphocytes # (1.0-4.8) k/uL Monocytes # (0-1.0) k/uL Eosinophils # (0-0.7) k/uL Basophils # (0-0.2) k/uL PT 10.4 (9.0-12.0) sec INR 1.0 (<1.1) APTT 22.0 (22.0-30.0) sec Sodium (137-145) mmol/L Potassium (3.5-5.1) mmol/L Chloride (98-107) mmol/L Carbon Dioxide (22-30) mmol/L Anion Gap mmol/L BUN (7-17) mg/dL Creatinine (0.52-1.04) mg/dL Est GFR (MDRD) Af Amer (>60 ml/min/1.73 sqM) Est GFR (MDRD) Non-Af (>60 ml/min/1.73 sqM) Glucose (74-99) mg/dL Calcium (8.4-10.2) mg/dL Magnesium (1.6-2.3) mg/dL Total Bilirubin (0.2-1.3) mg/dL AST (14-36) U/L ALT (9-52) U/L Alkaline Phosphatase (38-126) U/L Total Creatine Kinase (30-135) U/L CK-MB (CK-2) (0.0-2.4) ng/mL CK-MB (CK-2) Rel Index Troponin I (0.000-0.034) ng/mL Total Protein (6.3-8.2) g/dL Albumin (3.5-5.0) g/dL Urine Color Colorless Urine Appearance Clear (Clear) Urine pH 7.0 (5.0-8.0) Ur Specific [place] 1.004 (1.001-1.035) Urine Protein Negative (Negative) Urine Glucose (UA) Negative (Negative) Urine Ketones Negative (Negative) Urine Blood Trace H (Negative) Urine Nitrite Positive H (Negative) Urine Bilirubin Negative (Negative) Urine Urobilinogen <2.0 (<2.0) mg/dL Ur Leukocyte Esterase Large H (Negative) Urine RBC 2 (0-5) /hpf Urine WBC 54 H (0-5) /hpf Ur Squamous Epith Cells <1 (0-4) /hpf Urine Bacteria Occasional H (None) /hpf Urine Mucus Rare H (None) /hpf - Radiology Data Radiology results: report reviewed, image reviewed Disposition Clinical Impression: UTI (urinary tract infection), Memory changes Disposition: HOME SELF-CARE Condition: Stable Instructions: Urinary Tract Infection in Women (ED) Additional Instructions: Please use medication as discussed. Please follow up with family doctor if symptoms have not improved over the next two days. Please return to the emergency room if your symptoms increase or worsen or for any other concerns. Prescriptions: Levofloxacin [Levaquin] 500 mg PO DAILY #10 tab Referrals: Jordi Turner MD [Primary Care Provider] - 1-2 days Time of Disposition: 22:15
[2016-11-01 21:23] LABS: Creatine Kinase MB 0.7 ng/mL (0.0-2.4); Troponin I <0.012 ng/mL (0.000-0.034)
[2016-11-01 21:26] LABS: Appearance,Urine Clear (Clear); Bacteria,Urine Occasional /hpf; Bilirubin,Urine Negative (Negative); Glucose,Urine (UA) Negative (Negative); Ketones,Urine Negative (Negative); Leukocyte Esterase,Urine Large (Negative); Mucus,Urine Rare /hpf; Nitrite,Urine Positive (Negative); Particle Count 28771; Protein,Urine Negative (Negative); RBC,Urine 2 /hpf (0-5); Specific Gravity,Urine 1.004 (1.001-1.035); Squamous Epithelial Cell,Urine <1 /hpf (0-4); UA Billing (MACRO vs. MICRO) MICRO; Urobilinogen,Urine <2.0 mg/dL (<2.0); WBC,Urine 54 /hpf (0-5)
--- NOTE | 2016-11-01 21:34 | CT ---
EXAMINATION TYPE: CT brain wo con DATE OF EXAM: 11/01/2016 9:18 PM COMPARISON: April 17, 2016 HISTORY: Pain. Pt states of memory loss and hypertension. CT DLP: 970.5 mGycm. Automated exposure control for dose reduction was used. FINDINGS: There is no acute intracranial hemorrhage, mass effect, or midline shift identified. The ventricles and sulci are within normal limits in size. The globes are intact and the visualized sinuses are [place] ar. IMPRESSION: No acute intracranial hemorrhage, mass effect, or midline shift is seen.
--- NOTE | 2016-11-01 22:07 | XR ---
EXAMINATION TYPE: XR chest 2V DATE OF EXAM: 11/01/2016 9:21 PM COMPARISON: NONE HISTORY: Cough and pain TECHNIQUE: Frontal and lateral views of the chest are obtained. FINDINGS: There is no focal air space opacity, pleural effusion, or pneumothorax seen. The cardiac silhouette size is within normal limits. The osseous structures are intact. IMPRESSION: No acute cardiopulmonary process.
[2016-11-01 22:09] VITALS: PULSE 68; RESP 16
[2016-11-01 22:53] VITALS: BP 161/70; TEMP 98
== END 2016-11-01 22:53 | disposition home or self-care (01) ==
LOC: EC 20:02
DX: N39.0 Urinary tract infection, site not specified (principal); R41.3 Other amnesia; R06.02 Shortness of breath; R05 Cough; R51 Headache; G40.909 Epilepsy, unspecified, not intractable, without status epilepticus; Z79.899 Other long term (current) drug therapy
CPT/HCPCS: 99285; 96365; 96361; 36415; 93005; 80053; 80177; 82550; 82553; 83735; 84484; 85025; 85610; 85730; 81001; 71020; 70450; J0696

== ENCOUNTER 2016-11-07 01:09 | Emergency (ER) | payer OTHER ==
[2016-11-07 01:22] VITALS: RESP 18
[2016-11-07] MEDS ORDERED: FAMOTIDINE 20 MG/2 ML VIAL IV STA (01:37)
[2016-11-07] MEDS ORDERED: DICYCLOMINE 10 MG/ML 2 ML AMP IM STA (01:37)
[2016-11-07] MEDS ORDERED: SODIUM CHLORIDE 0.9% 1,000 ML IV STA (01:37)
[2016-11-07] MEDS ORDERED: ONDANSETRON 4 MG/2 ML VIAL IVP STA (01:37)
--- NOTE | 2016-11-07 01:40 | ED ---
General Adult HPI - General Chief complaint: Nausea/Vomiting/Diarrhea Stated complaint: NVD Time Seen by Provider: 11/07/16 01:13 Source: patient, EMS, RN notes reviewed Mode of arrival: EMS Limitations: no limitations - History of Present Illness Initial comments: Patient is a pleasant 61-year-old female presenting to the emergency department with diarrhea. Symptoms have been present for the past 5 days. Patient is having at least 5 or 6 episodes daily. Diarrhea is loose stools. No abdominal pain. Patient has had some nausea with only one episode of vomiting which was just a few hours ago. Patient complains of feeling lightheaded. Patient was in the hospital just prior to onset of diarrhea and diagnosed with urinary tract infection and provided Levaquin. Patient does question of Levaquin is causing the diarrhea. - Related Data Home Medications Medication Instructions Recorded Confirmed levETIRAcetam [Keppra] 1,000 mg PO BID 12/19/13 11/01/16 Epitol 200 mg PO BID 06/30/16 11/01/16 Previous Rx's Medication Instructions Recorded Levofloxacin [Levaquin] 500 mg PO DAILY #10 tab 11/01/16 Allergies Allergy/AdvReac Type Severity Reaction Status Date / Time No Known Allergies Allergy Verified 11/07/16 01:17 Review of Systems ROS Statement: Those systems with pertinent positive or pertinent negative responses have been documented in the HPI. ROS Other: All systems not noted in ROS Statement are negative. Constitutional: Denies: fever Eyes: Denies: eye pain ENT: Denies: ear pain Respiratory: Denies: dyspnea Cardiovascular: Denies: chest pain Endocrine: Reports: fatigue Gastrointestinal: Reports: nausea, vomiting, diarrhea. Denies: abdominal pain Genitourinary: Denies: dysuria Musculoskeletal: Denies: back pain Skin: Denies: rash Neurological: Denies: headache Past Medical History Past Medical History: COPD, Seizure Disorder Additional Past Medical History / Comment(s): Anemia History of Any Multi-Drug Resistant Organisms: None Reported Past Surgical History: No Surgical Hx Reported Additional Past Surgical History / Comment(s): Lung surgery, ENLARGED LYMPH NODE REMOVED BY DR. LUNDBERG Past Anesthesia/Blood Transfusion Reactions: No Reported Reaction Past Psychological History: No Psychological Hx Reported Smoking Status: Never smoker Past Alcohol Use History: None Reported Past Drug Use History: None Reported - Past Family History Mother Family Medical History: No Reported History General Exam Limitations: no limitations General appearance: alert, in no apparent distress Head exam: Present: atraumatic Eye exam: Present: normal appearance, PERRL ENT exam: Present: normal oropharynx Neck exam: Present: normal inspection Respiratory exam: Present: normal lung sounds bilaterally Cardiovascular Exam: Present: regular rate, normal rhythm GI/Abdominal exam: Present: soft, normal bowel sounds. Absent: distended, tenderness, guarding, rebound, rigid Extremities exam: Present: normal inspection Neurological exam: Present: alert Psychiatric exam: Present: normal affect, normal mood Skin exam: Absent: rash Course Vital Signs 11/07/16 11/07/16 01:17 02:50 Temperature 97.4 F L 97.0 F L Pulse Rate 70 78 Respiratory 18 18 Rate Blood Pressure 147/75 162/71 O2 Sat by Pulse 99 100 Oximetry Medical Decision Making - Medical Decision Making Patient reexamined and significantly improved. Patient updated on results. Patient updated on need for follow-up. Patient is advised if she has continued diarrhea that she will need to have Clostridium difficile testing done. Patient is advised she can discontinue Levaquin at this time. Patient is recommended to follow-up with her doctor in the next day or 2 and have him follow-up with urine culture results. Case was also discussed with Dr. Turner who will follow-up with this patient. - Lab Data Result diagrams: 11/07/16 01:25 11/07/16 01:25 Lab Results 11/07/16 11/07/16 11/07/16 Range/Units 01:25 01:25 02:15 WBC 4.9 (3.8-10.6) k/uL RBC 3.29 L (3.80-5.40) m/uL Hgb 10.8 L (11.4-16.0) gm/dL Hct 31.1 L (34.0-46.0) % MCV 94.6 (80.0-100.0) fL MCH 32.9 (25.0-35.0) pg MCHC 34.8 (31.0-37.0) g/dL RDW 12.6 (11.5-15.5) % Plt Count 299 (150-450) k/uL Neutrophils % 64 % Lymphocytes % 20 % Monocytes % 8 % Eosinophils % 2 % Basophils % 1 % Neutrophils # 3.2 (1.3-7.7) k/uL Lymphocytes # 1.0 (1.0-4.8) k/uL Monocytes # 0.4 (0-1.0) k/uL Eosinophils # 0.1 (0-0.7) k/uL Basophils # 0.1 (0-0.2) k/uL Sodium 141 (137-145) mmol/L Potassium 3.4 L (3.5-5.1) mmol/L Chloride 107 (98-107) mmol/L Carbon Dioxide 25 (22-30) mmol/L Anion Gap 9 mmol/L BUN 10 (7-17) mg/dL Creatinine 0.70 (0.52-1.04) mg/dL Est GFR (MDRD) Af Amer >60 (>60 ml/min/1.73 sqM) Est GFR (MDRD) Non-Af >60 (>60 ml/min/1.73 sqM) Glucose 96 (74-99) mg/dL Calcium 8.3 L (8.4-10.2) mg/dL Total Bilirubin 0.2 (0.2-1.3) mg/dL AST 21 (14-36) U/L ALT 28 (9-52) U/L Alkaline Phosphatase 74 (38-126) U/L Total Protein 6.1 L (6.3-8.2) g/dL Albumin 3.4 L (3.5-5.0) g/dL Amylase 98 (30-110) U/L Lipase 475 H (23-300) U/L Urine Color Light Yellow Urine Appearance Clear (Clear) Urine pH 6.5 (5.0-8.0) Ur Specific [place] 1.004 (1.001-1.035) Urine Protein Negative (Negative) Urine Glucose (UA) Negative (Negative) Urine Ketones Negative (Negative) Urine Blood Negative (Negative) Urine Nitrite Negative (Negative) Urine Bilirubin Negative (Negative) Urine Urobilinogen <2.0 (<2.0) mg/dL Ur Leukocyte Esterase Moderate H (Negative) Urine RBC 1 (0-5) /hpf Urine WBC 1 (0-5) /hpf Urine Bacteria Rare H (None) /hpf Urine Mucus Rare H (None) /hpf Disposition Clinical Impression: Diarrhea Disposition: HOME SELF-CARE Condition: Stable Instructions: Acute Diarrhea (ED) Additional Instructions: Please follow-up with Dr. Turner in the next day or 2 for recheck. If diarrhea continues consider testing for Clostridium difficile. Please have Dr. Turner follow-up with urine culture results. Return for vomiting, pain, fever, uncontrolled diarrhea, worsening symptoms or other concerns. Referrals: Jordi Turner MD [Primary Care Provider] - 1-2 days
[2016-11-07 01:56] LABS: Basophils # (A) 0.1 k/uL (0-0.2); Basophils % (A) 1 %; CH 32.5; CHCM 34.5; Eosinophils # (A) 0.1 k/uL (0-0.7); Eosinophils % (A) 2 %; HCT 31.1 % (34.0-46.0); HDW 2.65; HGB 10.8 gm/dL (11.4-16.0); Luc # (Auto) 0.18; Luc % (Auto) 4; Lymphocytes % (A) 20 %; MCH 32.9 pg (25.0-35.0); MCHC 34.8 g/dL (31.0-37.0); MCV 94.6 fL (80.0-100.0); Mean Platelet Volume 6.8; Monocytes # (A) 0.4 k/uL (0-1.0); Monocytes % (A) 8 %; Neutrophils # (A) 3.2 k/uL (1.3-7.7); Neutrophils % (A) 64 %; RBC 3.29 m/uL (3.80-5.40); RDW 12.6 % (11.5-15.5); WBC 4.9 k/uL (3.8-10.6); WBC (Perox) 5.18
[2016-11-07 02:04] LABS: ALT 28 U/L (9-52); AST 21 U/L (14-36); Alkaline Phosphatase 74 U/L (38-126); Amylase 98 U/L (30-110); Anion Gap 9 mmol/L; Blood Urea Nitrogen 10 mg/dL (7-17); Calcium 8.3 mg/dL (8.4-10.2); Carbon Dioxide 25 mmol/L (22-30); Chloride 107 mmol/L (98-107); Glucose 96 mg/dL (74-99); Non-African American GFR(MDRD) >60 (>60 ml/min/1.73 sqM); Potassium 3.4 mmol/L (3.5-5.1); Sodium 141 mmol/L (137-145); Total Bilirubin 0.2 mg/dL (0.2-1.3); Total Protein 6.1 g/dL (6.3-8.2)
[2016-11-07 02:40] LABS: Appearance,Urine Clear (Clear); Bacteria,Urine Rare /hpf; Bilirubin,Urine Negative (Negative); Glucose,Urine (UA) Negative (Negative); Ketones,Urine Negative (Negative); Leukocyte Esterase,Urine Moderate (Negative); Mucus,Urine Rare /hpf; Nitrite,Urine Negative (Negative); PH, Urine 6.5 (5.0-8.0); Particle Count 593; Protein,Urine Negative (Negative); RBC,Urine 1 /hpf (0-5); Specific Gravity,Urine 1.004 (1.001-1.035); UA Billing (MACRO vs. MICRO) MICRO; Urobilinogen,Urine <2.0 mg/dL (<2.0); WBC,Urine 1 /hpf (0-5)
[2016-11-07 02:51] VITALS: BP 162/71; PULSE 78; TEMP 97
== END 2016-11-07 03:21 | disposition home or self-care (01) ==
LOC: EC 01:09
DX: R19.7 Diarrhea, unspecified (principal); R11.2 Nausea with vomiting, unspecified; R42 Dizziness and giddiness; G40.909 Epilepsy, unspecified, not intractable, without status epilepticus; Z79.899 Other long term (current) drug therapy
CPT/HCPCS: 36415; 80053; 82150; 83690; 85025; 81001; 87086; 99284; 96374; 96375; 96361; 96372; J0500; J2405

== ENCOUNTER 2016-11-29 22:04 | Emergency (ER) | payer OTHER ==
[2016-11-29] MEDS ORDERED: SODIUM CHLORIDE 0.9% 1,000 ML IV STA (23:00)
[2016-11-29] MEDS ORDERED: ONDANSETRON 4 MG/2 ML VIAL IVP STA (23:00)
[2016-11-29] MEDS ORDERED: KETOROLAC 30 MG/ML 1 ML VIAL IVP STA (23:01)
--- NOTE | 2016-11-29 23:06 | ED ---
General Adult HPI - General Chief complaint: Nausea/Vomiting/Diarrhea Stated complaint: NAUSEA Time Seen by Provider: 11/29/16 22:47 Source: EMS, RN notes reviewed Mode of arrival: EMS Limitations: no limitations - History of Present Illness Initial comments: Patient is a 61-year-old female since emergency room for evaluation of lightheadedness and left rib pain. Patient states that she was diagnosed with pneumonia about a month ago by Dr. Turner. Patient also states she was told that she had a fractured left anterior rib. Patient states she did not finish her antibiotics because she didn't like how it made her feel. Patient states she's not been feeling the same since September. Patient states today she began feeling very lightheaded. Patient states she began having worsening left anterior rib pain. Patient states she walked over to her neighbor's house and they called EMS for her. Patient states she is nauseous but denies any vomiting. Patient denies chest pain. Patient states he feels short of breath because of the pain in her ribs. Patient denies fevers or chills. Patient denies abdominal pain. Patient denies smoking. Patient denies ear pain or throat pain. Patient denies diarrhea constipation. - Related Data Home Medications Medication Instructions Recorded Confirmed levETIRAcetam [Keppra] 1,000 mg PO BID 12/19/13 11/29/16 carBAMazepine [Epitol] 200 mg PO BID 11/29/16 11/29/16 Previous Rx's Medication Instructions Recorded Acetaminophen with Codeine 1 tab PO Q4H PRN #12 tab 11/30/16 [Tylenol w/codeine #3] Ibuprofen [Motrin] 600 mg PO Q6HR PRN #12 tab 11/30/16 Allergies Allergy/AdvReac Type Severity Reaction Status Date / Time No Known Allergies Allergy Verified 11/29/16 22:10 Review of Systems ROS Statement: Those systems with pertinent positive or pertinent negative responses have been documented in the HPI. ROS Other: All systems not noted in ROS Statement are negative. Past Medical History Past Medical History: COPD, Seizure Disorder Additional Past Medical History / Comment(s): Anemia History of Any Multi-Drug Resistant Organisms: None Reported Past Surgical History: No Surgical Hx Reported Additional Past Surgical History / Comment(s): Lung surgery, ENLARGED LYMPH NODE REMOVED BY DR. LUNDBERG Past Anesthesia/Blood Transfusion Reactions: No Reported Reaction Past Psychological History: No Psychological Hx Reported Smoking Status: Never smoker Past Alcohol Use History: None Reported Past Drug Use History: None Reported - Past Family History Mother Family Medical History: No Reported History General Exam - General Exam Comments Initial Comments: Sitting in exam room, no acute distress. Limitations: no limitations General appearance: alert, in no apparent distress Head exam: Present: atraumatic, normocephalic, normal inspection Eye exam: Present: normal appearance ENT exam: Present: normal exam Neck exam: Present: normal inspection Respiratory exam: Present: normal lung sounds bilaterally, chest wall tenderness (Pain on palpating over her left anterior ribs 4-6). Absent: respiratory distress Cardiovascular Exam: Present: regular rate, normal rhythm, normal heart sounds GI/Abdominal exam: Present: soft, normal bowel sounds. Absent: distended, tenderness, guarding, rebound, rigid Extremities exam: Present: normal inspection Back exam: Present: normal inspection Neurological exam: Present: alert, oriented X3, CN II-XII intact, normal gait Psychiatric exam: Present: normal affect, normal mood Skin exam: Present: warm, dry, intact, normal color. Absent: rash Course Vital Signs 11/29/16 11/30/16 22:38 02:56 Temperature 97.4 F L 98 F Pulse Rate 70 89 Respiratory 18 20 Rate Blood Pressure 150/72 144/78 O2 Sat by Pulse 100 98 Oximetry Medical Decision Making - Medical Decision Making Patient is a 61-year-old female presents to the emergency room for evaluation of lightheadedness and left anterior rib pain. Chest x-ray showed a 9 mm nodular density projecting in the left midlung and advised CT. CT of chest showed a subacute appearing anterior left fifth rib fracture. No pneumothorax. Nodular density noted on radiographs was due to a chronic, healed anterior left sixth rib fracture. No PE. Labs show no concerning findings. Patient will be sent home with pain medications as needed. Advised patient to follow- up with primary care provider for reevaluation. Patient states the lightheadedness has disappeared. Patient states she understands everything that was discussed with her. Return parameters discussed. Case discussed with Dr. Barnes. - Lab Data Result diagrams: 11/29/16 23:15 11/29/16 23:15 Lab Results 11/29/16 11/29/16 11/29/16 Range/Units 23:15 23:15 23:15 WBC 5.2 (3.8-10.6) k/uL RBC 3.49 L (3.80-5.40) m/uL Hgb 11.3 L (11.4-16.0) gm/dL Hct 33.1 L (34.0-46.0) % MCV 94.8 (80.0-100.0) fL MCH 32.2 (25.0-35.0) pg MCHC 34.0 (31.0-37.0) g/dL RDW 12.7 (11.5-15.5) % Plt Count 310 (150-450) k/uL Neutrophils % 63 % Lymphocytes % 20 % Monocytes % 11 % Eosinophils % 3 % Basophils % 1 % Neutrophils # 3.3 (1.3-7.7) k/uL Lymphocytes # 1.1 (1.0-4.8) k/uL Monocytes # 0.6 (0-1.0) k/uL Eosinophils # 0.2 (0-0.7) k/uL Basophils # 0.1 (0-0.2) k/uL Sodium 140 (137-145) mmol/L Potassium 3.3 L (3.5-5.1) mmol/L Chloride 107 (98-107) mmol/L Carbon Dioxide 25 (22-30) mmol/L Anion Gap 8 mmol/L BUN 9 (7-17) mg/dL Creatinine 0.70 (0.52-1.04) mg/dL Est GFR (MDRD) Af Amer >60 (>60 ml/min/1.73 sqM) Est GFR (MDRD) Non-Af >60 (>60 ml/min/1.73 sqM) Glucose 98 (74-99) mg/dL Calcium 8.6 (8.4-10.2) mg/dL Magnesium 2.1 (1.6-2.3) mg/dL Total Bilirubin 0.3 (0.2-1.3) mg/dL AST 24 (14-36) U/L ALT 26 (9-52) U/L Alkaline Phosphatase 79 (38-126) U/L Troponin I (0.000-0.034) ng/mL Total Protein 6.4 (6.3-8.2) g/dL Albumin 3.6 (3.5-5.0) g/dL Urine Color Urine Appearance (Clear) Urine pH (5.0-8.0) Ur Specific [place] (1.001-1.035) Urine Protein (Negative) Urine Glucose (UA) (Negative) Urine Ketones (Negative) Urine Blood (Negative) Urine Nitrite (Negative) Urine Bilirubin (Negative) Urine Urobilinogen (<2.0) mg/dL Ur Leukocyte Esterase (Negative) Urine RBC (0-5) /hpf Urine WBC (0-5) /hpf Urine Bacteria (None) /hpf Influenza Type A RNA Not Detected (Not Detectd) Influenza Type B (PCR) Not Detected (Not Detectd) 11/29/16 11/29/16 Range/Units 23:15 23:45 WBC (3.8-10.6) k/uL RBC (3.80-5.40) m/uL Hgb (11.4-16.0) gm/dL Hct (34.0-46.0) % MCV (80.0-100.0) fL MCH (25.0-35.0) pg MCHC (31.0-37.0) g/dL RDW (11.5-15.5) % Plt Count (150-450) k/uL Neutrophils % % Lymphocytes % % Monocytes % % Eosinophils % % Basophils % % Neutrophils # (1.3-7.7) k/uL Lymphocytes # (1.0-4.8) k/uL Monocytes # (0-1.0) k/uL Eosinophils # (0-0.7) k/uL Basophils # (0-0.2) k/uL Sodium (137-145) mmol/L Potassium (3.5-5.1) mmol/L Chloride (98-107) mmol/L Carbon Dioxide (22-30) mmol/L Anion Gap mmol/L BUN (7-17) mg/dL Creatinine (0.52-1.04) mg/dL Est GFR (MDRD) Af Amer (>60 ml/min/1.73 sqM) Est GFR (MDRD) Non-Af (>60 ml/min/1.73 sqM) Glucose (74-99) mg/dL Calcium (8.4-10.2) mg/dL Magnesium (1.6-2.3) mg/dL Total Bilirubin (0.2-1.3) mg/dL AST (14-36) U/L ALT (9-52) U/L Alkaline Phosphatase (38-126) U/L Troponin I <0.012 (0.000-0.034) ng/mL Total Protein (6.3-8.2) g/dL Albumin (3.5-5.0) g/dL Urine Color Colorless Urine Appearance Clear (Clear) Urine pH 7.0 (5.0-8.0) Ur Specific [place] 1.003 (1.001-1.035) Urine Protein Negative (Negative) Urine Glucose (UA) Negative (Negative) Urine Ketones Negative (Negative) Urine Blood Trace H (Negative) Urine Nitrite Negative (Negative) Urine Bilirubin Negative (Negative) Urine Urobilinogen <2.0 (<2.0) mg/dL Ur Leukocyte Esterase Moderate H (Negative) Urine RBC 1 (0-5) /hpf Urine WBC 7 H (0-5) /hpf Urine Bacteria Rare H (None) /hpf Influenza Type A RNA (Not Detectd) Influenza Type B (PCR) (Not Detectd) - Radiology Data Radiology results: report reviewed, image reviewed Disposition Clinical Impression: Fracture of rib with routine healing Disposition: HOME SELF-CARE Condition: Good Instructions: Rib Fracture (ED) Additional Instructions: Alternate ice and heat. Take pain medications as needed. Please follow up with primary care provider in 24-48 hours. If any new symptom arises or symptoms worsen, return to ER as soon as possible. Prescriptions: Ibuprofen [Motrin] 600 mg PO Q6HR PRN #12 tab PRN Reason: Pain Acetaminophen with Codeine [Tylenol w/codeine #3] 1 tab PO Q4H PRN #12 tab PRN Reason: Pain Referrals: Alexis Kramer Jr, [Primary Care Provider] - 1-2 days Time of Disposition: 02:42
[2016-11-29] MEDS ORDERED: METOCLOPRAMIDE 5 MG/ML 2 ML VIAL IVP STA (23:26)
[2016-11-29 23:30] LABS: Basophils # (A) 0.1 k/uL (0-0.2); Basophils % (A) 1 %; CH 32.9; CHCM 34.8; Eosinophils # (A) 0.2 k/uL (0-0.7); Eosinophils % (A) 3 %; HCT 33.1 % (34.0-46.0); HDW 2.42; HGB 11.3 gm/dL (11.4-16.0); Luc % (Auto) 2; Lymphocytes # (A) 1.1 k/uL (1.0-4.8); Lymphocytes % (A) 20 %; MCH 32.2 pg (25.0-35.0); MCV 94.8 fL (80.0-100.0); Mean Platelet Volume 6.6; Monocytes # (A) 0.6 k/uL (0-1.0); Monocytes % (A) 11 %; Neutrophils # (A) 3.3 k/uL (1.3-7.7); Neutrophils % (A) 63 %; RBC 3.49 m/uL (3.80-5.40); RDW 12.7 % (11.5-15.5); WBC 5.2 k/uL (3.8-10.6); WBC (Perox) 5.34
[2016-11-29 23:39] LABS: ALT 26 U/L (9-52); AST 24 U/L (14-36); Alkaline Phosphatase 79 U/L (38-126); Anion Gap 8 mmol/L; Blood Urea Nitrogen 9 mg/dL (7-17); Calcium 8.6 mg/dL (8.4-10.2); Carbon Dioxide 25 mmol/L (22-30); Chloride 107 mmol/L (98-107); Glucose 98 mg/dL (74-99); Magnesium 2.1 mg/dL (1.6-2.3); Non-African American GFR(MDRD) >60 (>60 ml/min/1.73 sqM); Potassium 3.3 mmol/L (3.5-5.1); Sodium 140 mmol/L (137-145); Total Bilirubin 0.3 mg/dL (0.2-1.3); Total Protein 6.4 g/dL (6.3-8.2)
[2016-11-30 00:03] LABS: Appearance,Urine Clear (Clear); Bacteria,Urine Rare /hpf; Bilirubin,Urine Negative (Negative); Glucose,Urine (UA) Negative (Negative); Ketones,Urine Negative (Negative); Leukocyte Esterase,Urine Moderate (Negative); Nitrite,Urine Negative (Negative); Particle Count 501; Protein,Urine Negative (Negative); RBC,Urine 1 /hpf (0-5); Specific Gravity,Urine 1.003 (1.001-1.035); UA Billing (MACRO vs. MICRO) MICRO; Urobilinogen,Urine <2.0 mg/dL (<2.0); WBC,Urine 7 /hpf (0-5)
--- NOTE | 2016-11-30 00:47 | XR ---
EXAM: XR Chest, 2 Views. CLINICAL HISTORY: Reason: left anterior rib pain TECHNIQUE: Frontal and lateral views of the chest. COMPARISON: No relevant prior studies available. FINDINGS: Pulmonary hyperexpansion. 9 mm density projects in the left midlung. This overlies the posterior left ninth rib. It could reflect a confluence of shadows with the anterior sixth rib. It is not well-seen on the lateral view. A pulmonary nodule or rib lesion is not excluded. CT could further assess if warranted. There is no lobar consolidation. No overt edema. No pneumothorax or pleural effusion. IMPRESSION: 9 mm nodular density projecting in the left midlung as discussed above. CT could further assess if warranted.
[2016-11-30] MEDS ORDERED: RX INFO: IV CONTRAST WAS GIVEN 1 EACH MISC MISCELLANE PRN (00:58)
--- NOTE | 2016-11-30 02:16 | CT ---
EXAM: CT Chest With Intravenous Contrast. CLINICAL HISTORY: Reason: Pain TECHNIQUE: Axial computed tomography images of the chest with intravenous contrast. CTDI is 4.8 mGy and DLP is 164 mGy-cm This CT exam was performed using one or more of the following dose reduction techniques: automated exposure control, adjustment of the mA and/or kV according to patient size, and/or use of iterative reconstruction technique. COMPARISON: Chest radiograph of same date. FINDINGS: The nodular density observed on the radiographs is due to a chronic, healed fracture of the anterior left sixth rib. There is a chronic, healed fracture of the lateral right sixth rib as well. The anterior left fifth rib demonstrates a fracture that appears to be in the subacute stages. Question whether this is where patient localizes pain. There is no pneumothorax or hemothorax. There is mild lingular scarring/atelectasis. There is no pulmonary embolism. No dissection or other acute aortic syndrome. 5 mm right thyroid lobe hypodensity. IMPRESSION: Subacute-appearing anterior left fifth rib fracture. No pneumothorax. Nodular density noted on radiographs was due to a chronic, healed anterior left sixth rib fracture. No PE.
[2016-11-30 02:58] VITALS: BP 144/78; PULSE 89; RESP 20; TEMP 98
== END 2016-11-30 02:58 | disposition home or self-care (01) ==
LOC: EC 22:04
DX: S22.32XD Fracture of one rib, left side, subsequent encounter for fracture with routine healing (principal); X58.XXXD Exposure to other specified factors, subsequent encounter; R11.0 Nausea; R42 Dizziness and giddiness; R06.02 Shortness of breath; G40.909 Epilepsy, unspecified, not intractable, without status epilepticus; Z79.899 Other long term (current) drug therapy
CPT/HCPCS: 36415; 80053; 83735; 84484; 85025; 81001; 87502; 71020; 71260; 99284; 96374; 96375; 96361 ×3; J2765; J1885; Q9967

== ENCOUNTER 2017-01-03 15:46 | Observation (INO) | payer OTHER ==
[2017-01-03 15:59] LABS: Glucose,Whole Blood 122 mg/dL (75-99)
[2017-01-03] MEDS ORDERED: SODIUM CHLORIDE 0.9% 500 ML IV ONE (16:11)
[2017-01-03] MEDS ORDERED: SODIUM CHLORIDE 0.9% 1,000 ML IV ONE (16:11)
[2017-01-03 16:23] LABS: Basophils % (A) 1 %; CH 32.5; Eosinophils # (A) 0.2 k/uL (0-0.7); Eosinophils % (A) 4 %; HCT 33.6 % (34.0-46.0); HDW 2.41; HGB 11.7 gm/dL (11.4-16.0); Luc # (Auto) 0.14; Luc % (Auto) 3; Lymphocytes % (A) 21 %; MCH 32.4 pg (25.0-35.0); MCHC 34.8 g/dL (31.0-37.0); MCV 93.2 fL (80.0-100.0); Mean Platelet Volume 6.8; Monocytes # (A) 0.5 k/uL (0-1.0); Monocytes % (A) 10 %; Neutrophils # (A) 3.1 k/uL (1.3-7.7); Neutrophils % (A) 62 %; RDW 12.5 % (11.5-15.5); WBC (Perox) 5.02
[2017-01-03 16:30] LABS: Partial Thromboplastin Time 23.4 sec (22.0-30.0); Prothrombin Time 10.4 sec (9.0-12.0)
[2017-01-03 16:31] LABS: ALT 23 U/L (9-52); AST 21 U/L (14-36); Alkaline Phosphatase 81 U/L (38-126); Anion Gap 10 mmol/L; Blood Urea Nitrogen 11 mg/dL (7-17); Calcium 8.8 mg/dL (8.4-10.2); Carbon Dioxide 23 mmol/L (22-30); Chloride 105 mmol/L (98-107); Glucose 118 mg/dL (74-99); Non-African American GFR(MDRD) >60 (>60 ml/min/1.73 sqM); Potassium 4.1 mmol/L (3.5-5.1); Sodium 138 mmol/L (137-145); Total Bilirubin 0.1 mg/dL (0.2-1.3); Total Protein 6.8 g/dL (6.3-8.2)
--- NOTE | 2017-01-03 16:42 | XR ---
EXAMINATION TYPE: XR chest 2V DATE OF EXAM: 01/03/2017 COMPARISON: Prior chest x-ray and CT chest November 30, 2016 HISTORY: Altered mental status, history of pneumonia and left-sided rib fractures TECHNIQUE: Frontal and lateral views of the chest are obtained. FINDINGS: Mild underlying emphysematous change is felt present. There is no focal air space opacity, pleural effusion, or pneumothorax seen. The cardiac silhouette size is within normal limits. The o sseous structures are somewhat demineralized. IMPRESSION: No acute cardiopulmonary process.
--- NOTE | 2017-01-03 16:44 | CT ---
EXAMINATION TYPE: CT brain wo con DATE OF EXAM: 01/03/2017 4:34 PM HISTORY: Confusion and altered mental status. CT DLP: 995.2 mGycm. Automated Exposure Control for Dose Reduction was Utilized. TECHNIQUE: CT scan of the head is performed without contrast. COMPARISON: CT brain November 01, 2016. FINDINGS: There is no acute intracranial hemorrhage or midline shift identified. Ventricles and sul ci are within normal limits in size. Slight thickening of calvarium is stable. The globes are intact and the visualized sinuses are clear. IMPRESSION: No acute intracranial hemorrhage or midline shift. No significant change from prior.
[2017-01-03 16:48] LABS: Creatine Kinase 83 U/L (30-135)
[2017-01-03 17:00] LABS: Creatine Kinase MB 0.7 ng/mL (0.0-2.4); Troponin I <0.012 ng/mL (0.000-0.034)
--- NOTE | 2017-01-03 17:56 | ED ---
Altered Mental Status HPI - General Chief Complaint: Altered Mental Status Stated Complaint: Altered mental status Time Seen by Provider: 01/03/17 16:00 Source: patient, EMS Mode of arrival: EMS Limitations: no limitations - History of Present Illness Initial Comments: This 61-year-old white female presents with the complaint of some confusion. She apparently walked into something else his house and sat down. She denies having any previous similar symptoms that she is aware of. She has no medical complaints currently. She barely had pneumonia and a couple of rib fractures on the left side back in September 2016. She still has some degree of pain on her left ribs. This is easily reproducible. She denies taking any heavy narcotics for this. She denies any drug use or alcohol use whatsoever. She currently lives at home alone. She denies any other complaints or modifying factors. His been no fevers or chills or infection since September 2016. She has no urinary symptoms. - Related Data Home Medications Medication Instructions Recorded Confirmed levETIRAcetam [Keppra] 1,000 mg PO BID 12/19/13 01/03/17 carBAMazepine [Epitol] 200 mg PO BID 11/29/16 01/03/17 Albuterol Inhaler [Ventolin Hfa 1 - 2 puff INHALATION RT-Q6H PRN 01/03/17 Inhaler] Albuterol Nebulized [Ventolin 2.5 mg INHALATION RT-DAILY PRN 01/03/17 01/03/17 Nebulized] Allergies Allergy/AdvReac Type Severity Reaction Status Date / Time No Known Allergies Allergy Verified 01/03/17 16:41 Review of Systems ROS Statement: Those systems with pertinent positive or pertinent negative responses have been documented in the HPI. ROS Other: All systems not noted in ROS Statement are negative. Past Medical History Past Medical History: COPD, Seizure Disorder Additional Past Medical History / Comment(s): Anemia History of Any Multi-Drug Resistant Organisms: None Reported Past Surgical History: No Surgical Hx Reported Additional Past Surgical History / Comment(s): Lung surgery, ENLARGED LYMPH NODE REMOVED BY DR. LUNDBERG Past Anesthesia/Blood Transfusion Reactions: No Reported Reaction Past Psychological History: No Psychological Hx Reported Smoking Status: Never smoker Past Alcohol Use History: None Reported Past Drug Use History: None Reported - Past Family History Mother Family Medical History: No Reported History General Exam - General Exam Comments Initial Comments: GENERAL: The patient is well nourished and well hydrated. VITAL SIGNS: Heart rate, blood pressure, respiratory rate reviewed as recorded in nurse's notes. EYES: Pupils are round and reactive. Extraocular movements are intact. No conjunctival / lid redness or swelling. ENT: No external evidence of injury, swelling, or ecchymosis. Airway is patent. Throat is clear. NECK: Nontender. No swelling or evidence of injury. No subcutaneous emphysema. Trachea is midline. No thyroid mass. HEART: Regular rate and rhythm. Good peripheral pulses. LUNGS/CHEST: Breath sounds clear and equal bilaterally. No rales, rhonchi, or wheezes. There is minimal tenderness noted to the left lower lateral ribs. ABDOMEN: Abdomen soft without tenderness. No palpable masses or organomegaly. No peritoneal signs. No abdominal wall swelling or ecchymosis. EXTREMITIES: No extremity tenderness. Normal muscle tone and function. No thoracolumbar tenderness. NEUROLOGIC: Sensation is grossly intact. Cranial nerve exam reveals face is symmetrical, tongue is midline, speech is clear. SKIN: No abrasions or ecchymosis is noted. No induration or masses noted. PSYCHIATRIC: Alert and oriented. Appropriate behavior and judgment. Limitations: no limitations Course Vital Signs 01/03/17 01/03/17 15:48 17:52 Temperature 98.0 F 97.0 F L Pulse Rate 79 83 Respiratory 17 16 Rate Blood Pressure 147/93 196/82 O2 Sat by Pulse 98 100 Oximetry Medical Decision Making - Medical Decision Making The patient was seen and examined. All diagnostics were reviewed. She receives some mild fluid hydration. She had an EKG done which shows a normal sinus rhythm at a rate of 79. There is no acute ST-T wave changes identified. The OK interval is 180, QS duration 76, and QTC intervals 412. The computed tomography scan of brain did not show any acute processes. The chest x-ray did not show any acute processes. The laboratory is reviewed and is fairly unremarkable. She is doing well on recheck. The urinalysis did not show any signs of infection. She is alert and oriented on recheck. She states that she did not eat so seems to have a slight headache. She would prefer to stay in the hospital overnight. She lives at home by herself. The case is discussed with Dr. Garrison and he is agreeable to admission as well. - Lab Data Result diagrams: 01/03/17 16:00 01/03/17 16:00 Lab Results 01/03/17 01/03/17 01/03/17 Range/Units 15:55 16:00 16:00 WBC (3.8-10.6) k/uL RBC (3.80-5.40) m/uL Hgb (11.4-16.0) gm/dL Hct (34.0-46.0) % MCV (80.0-100.0) fL MCH (25.0-35.0) pg MCHC (31.0-37.0) g/dL RDW (11.5-15.5) % Plt Count (150-450) k/uL Neutrophils % % Lymphocytes % % Monocytes % % Eosinophils % % Basophils % % Neutrophils # (1.3-7.7) k/uL Lymphocytes # (1.0-4.8) k/uL Monocytes # (0-1.0) k/uL Eosinophils # (0-0.7) k/uL Basophils # (0-0.2) k/uL PT (9.0-12.0) sec INR (<1.1) APTT (22.0-30.0) sec Sodium (137-145) mmol/L Potassium (3.5-5.1) mmol/L Chloride (98-107) mmol/L Carbon Dioxide (22-30) mmol/L Anion Gap mmol/L BUN (7-17) mg/dL Creatinine (0.52-1.04) mg/dL Est GFR (MDRD) Af Amer (>60 ml/min/1.73 sqM) Est GFR (MDRD) Non-Af (>60 ml/min/1.73 sqM) Glucose (74-99) mg/dL POC Glucose (mg/dL) 122 H (75-99) mg/dL POC Glu Electrical Project Manager ID Emery Shoemaker Calcium (8.4-10.2) mg/dL Total Bilirubin (0.2-1.3) mg/dL AST (14-36) U/L ALT (9-52) U/L Alkaline Phosphatase (38-126) U/L Ammonia 17 (<30) umol/L Total Creatine Kinase 83 (30-135) U/L CK-MB (CK-2) 0.7 (0.0-2.4) ng/mL CK-MB (CK-2) Rel Index 0.8 Troponin I <0.012 (0.000-0.034) ng/mL Total Protein (6.3-8.2) g/dL Albumin (3.5-5.0) g/dL Urine Color Urine Appearance (Clear) Urine pH (5.0-8.0) Ur Specific [place] (1.001-1.035) Urine Protein (Negative) Urine Glucose (UA) (Negative) Urine Ketones (Negative) Urine Blood (Negative) Urine Nitrite (Negative) Urine Bilirubin (Negative) Urine Urobilinogen (<2.0) mg/dL Ur Leukocyte Esterase (Negative) Urine Opiates Screen (NotDetected) Ur Oxycodone Screen (NotDetected) Urine Methadone Screen (NotDetected) Ur Propoxyphene Screen (NotDetected) Ur Barbiturates Screen (NotDetected) U Tricyclic Antidepress (NotDetected) Ur Phencyclidine Scrn (NotDetected) Ur Amphetamines Screen (NotDetected) U Methamphetamines Scrn (NotDetected) U Benzodiazepines Scrn (NotDetected) Urine Cocaine Screen (NotDetected) U Marijuana (THC) Screen (NotDetected) 01/03/17 01/03/17 01/03/17 Range/Units 16:00 16:00 16:00 WBC 5.0 (3.8-10.6) k/uL RBC 3.60 L (3.80-5.40) m/uL Hgb 11.7 (11.4-16.0) gm/dL Hct 33.6 L (34.0-46.0) % MCV 93.2 (80.0-100.0) fL MCH 32.4 (25.0-35.0) pg MCHC 34.8 (31.0-37.0) g/dL RDW 12.5 (11.5-15.5) % Plt Count 296 (150-450) k/uL Neutrophils % 62 % Lymphocytes % 21 % Monocytes % 10 % Eosinophils % 4 % Basophils % 1 % Neutrophils # 3.1 (1.3-7.7) k/uL Lymphocytes # 1.0 (1.0-4.8) k/uL Monocytes # 0.5 (0-1.0) k/uL Eosinophils # 0.2 (0-0.7) k/uL Basophils # 0.0 (0-0.2) k/uL PT 10.4 (9.0-12.0) sec INR 1.0 (<1.1) APTT 23.4 (22.0-30.0) sec Sodium 138 (137-145) mmol/L Potassium 4.1 (3.5-5.1) mmol/L Chloride 105 (98-107) mmol/L Carbon Dioxide 23 (22-30) mmol/L Anion Gap 10 mmol/L BUN 11 (7-17) mg/dL Creatinine 0.80 (0.52-1.04) mg/dL Est GFR (MDRD) Af Amer >60 (>60 ml/min/1.73 sqM) Est GFR (MDRD) Non-Af >60 (>60 ml/min/1.73 sqM) Glucose 118 H (74-99) mg/dL POC Glucose (mg/dL) (75-99) mg/dL POC Glu Electrical Project Manager ID Calcium 8.8 (8.4-10.2) mg/dL Total Bilirubin 0.1 L (0.2-1.3) mg/dL AST 21 (14-36) U/L ALT 23 (9-52) U/L Alkaline Phosphatase 81 (38-126) U/L Ammonia (<30) umol/L Total Creatine Kinase (30-135) U/L CK-MB (CK-2) (0.0-2.4) ng/mL CK-MB (CK-2) Rel Index Troponin I (0.000-0.034) ng/mL Total Protein 6.8 (6.3-8.2) g/dL Albumin 3.9 (3.5-5.0) g/dL Urine Color Urine Appearance (Clear) Urine pH (5.0-8.0) Ur Specific [place] (1.001-1.035) Urine Protein (Negative) Urine Glucose (UA) (Negative) Urine Ketones (Negative) Urine Blood (Negative) Urine Nitrite (Negative) Urine Bilirubin (Negative) Urine Urobilinogen (<2.0) mg/dL Ur Leukocyte Esterase (Negative) Urine Opiates Screen (NotDetected) Ur Oxycodone Screen (NotDetected) Urine Methadone Screen (NotDetected) Ur Propoxyphene Screen (NotDetected) Ur Barbiturates Screen (NotDetected) U Tricyclic Antidepress (NotDetected) Ur Phencyclidine Scrn (NotDetected) Ur Amphetamines Screen (NotDetected) U Methamphetamines Scrn (NotDetected) U Benzodiazepines Scrn (NotDetected) Urine Cocaine Screen (NotDetected) U Marijuana (THC) Screen (NotDetected) 01/03/17 01/03/17 Range/Units 17:57 18:00 WBC (3.8-10.6) k/uL RBC (3.80-5.40) m/uL Hgb (11.4-16.0) gm/dL Hct (34.0-46.0) % MCV (80.0-100.0) fL MCH (25.0-35.0) pg MCHC (31.0-37.0) g/dL RDW (11.5-15.5) % Plt Count (150-450) k/uL Neutrophils % % Lymphocytes % % Monocytes % % Eosinophils % % Basophils % % Neutrophils # (1.3-7.7) k/uL Lymphocytes # (1.0-4.8) k/uL Monocytes # (0-1.0) k/uL Eosinophils # (0-0.7) k/uL Basophils # (0-0.2) k/uL PT (9.0-12.0) sec INR (<1.1) APTT (22.0-30.0) sec Sodium (137-145) mmol/L Potassium (3.5-5.1) mmol/L Chloride (98-107) mmol/L Carbon Dioxide (22-30) mmol/L Anion Gap mmol/L BUN (7-17) mg/dL Creatinine (0.52-1.04) mg/dL Est GFR (MDRD) Af Amer (>60 ml/min/1.73 sqM) Est GFR (MDRD) Non-Af (>60 ml/min/1.73 sqM) Glucose (74-99) mg/dL POC Glucose (mg/dL) 103 H (75-99) mg/dL POC Glu Electrical Project Manager ID Bina Franks Calcium (8.4-10.2) mg/dL Total Bilirubin (0.2-1.3) mg/dL AST (14-36) U/L ALT (9-52) U/L Alkaline Phosphatase (38-126) U/L Ammonia (<30) umol/L Total Creatine Kinase (30-135) U/L CK-MB (CK-2) (0.0-2.4) ng/mL CK-MB (CK-2) Rel Index Troponin I (0.000-0.034) ng/mL Total Protein (6.3-8.2) g/dL Albumin (3.5-5.0) g/dL Urine Color Light Yellow Urine Appearance Clear (Clear) Urine pH 7.0 (5.0-8.0) Ur Specific [place] 1.004 (1.001-1.035) Urine Protein Negative (Negative) Urine Glucose (UA) Negative (Negative) Urine Ketones Negative (Negative) Urine Blood Negative (Negative) Urine Nitrite Negative (Negative) Urine Bilirubin Negative (Negative) Urine Urobilinogen <2.0 (<2.0) mg/dL Ur Leukocyte Esterase Negative (Negative) Urine Opiates Screen Not Detected (NotDetected) Ur Oxycodone Screen Not Detected (NotDetected) Urine Methadone Screen Not Detected (NotDetected) Ur Propoxyphene Screen Not Detected (NotDetected) Ur Barbiturates Screen Not Detected (NotDetected) U Tricyclic Antidepress Not Detected (NotDetected) Ur Phencyclidine Scrn Not Detected (NotDetected) Ur Amphetamines Screen Not Detected (NotDetected) U Methamphetamines Scrn Not Detected (NotDetected) U Benzodiazepines Scrn Not Detected (NotDetected) Urine Cocaine Screen Not Detected (NotDetected) U Marijuana (THC) Screen Not Detected (NotDetected) Disposition Clinical Impression: Mental status change, Hypertension Disposition: ADMITTED IP TO THIS HOSP Condition: Fair Time of Disposition: 19:36 Decision Date: 01/03/17 Decision Time: 19:36
[2017-01-03 18:04] LABS: Glucose,Whole Blood 103 mg/dL (75-99)
[2017-01-03 18:07] LABS: Appearance,Urine Clear (Clear); Bilirubin,Urine Negative (Negative); Glucose,Urine (UA) Negative (Negative); Ketones,Urine Negative (Negative); Leukocyte Esterase,Urine Negative (Negative); Nitrite,Urine Negative (Negative); Protein,Urine Negative (Negative); Specific Gravity,Urine 1.004 (1.001-1.035); UA Billing (MACRO vs. MICRO) CHEM; Urobilinogen,Urine <2.0 mg/dL (<2.0)
[2017-01-03] MEDS ORDERED: ACETAMINOPHEN TAB 500 MG TAB PO STA (19:34)
[2017-01-03] MEDS ORDERED: hydrALAZINE HCL 20 MG/ML 1 ML VIAL IVP STA (19:34)
[2017-01-03] MEDS ORDERED: NALOXONE 0.4 MG/ML 1 ML VIAL IV PRN (19:36)
[2017-01-03] MEDS ORDERED: ALBUTEROL NEBULIZED 2.5 MG/3 ML INHALATION PRN (19:40)
[2017-01-03] MEDS ORDERED: hydrALAZINE HCL 20 MG/ML 1 ML VIAL IVP PRN (19:41)
[2017-01-03] MEDS: carBAMazepine 200 MG TAB PO SCH ×3 (21:28→21:31)
[2017-01-03] MEDS: levETIRAcetam 500 MG TAB PO SCH (21:28)
--- NOTE | 2017-01-03 21:52 | P.CNNES ---
History of Present Illness Consult date: 01/03/17 History of Present Illness: The patient is a 61-year-old woman with history of epilepsy. She states her seizures have been well controlled with Keppra and Tegretol. She reports however that she does have partial spells occasionally. Patient is admitted to the hospital with an episode of confusion. 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 Her neighbor informed her that she was in the wrong house and then she realized what she had done. She states she's been under a lot of stress lately in her life. The patient denies any focal weakness loss of speech visual disturbance or numbness and tingling. Review of Systems Constitutional: Denies chills, Denies fever Eyes: denies blurred vision, denies pain Ears, nose, mouth and throat: Denies headache, Denies sore throat Cardiovascular: Denies chest pain, Denies shortness of breath Respiratory: Denies cough Musculoskeletal: Denies myalgias Neurological: Denies numbness, Denies weakness Psychiatric: Denies anxiety, Denies depression Past Medical History Past Medical History: COPD, Pneumonia, Seizure Disorder Additional Past Medical History / Comment(s): Anemia, pneumonia with rib fractures 09/23 History of Any Multi-Drug Resistant Organisms: None Reported Past Surgical History: No Surgical Hx Reported Additional Past Surgical History / Comment(s): Lung surgery, ENLARGED LYMPH NODE REMOVED BY DR. LUNDBERG Past Anesthesia/Blood Transfusion Reactions: No Reported Reaction Past Psychological History: No Psychological Hx Reported Smoking Status: Never smoker Past Alcohol Use History: None Reported Past Drug Use History: None Reported - Past Family History Mother Family Medical History: No Reported History Medications and Allergies Home Medications Medication Instructions Recorded Confirmed Type levETIRAcetam [Keppra] 1,000 mg PO BID 12/19/13 01/03/17 History carBAMazepine [Epitol] 200 mg PO BID 11/29/16 01/03/17 History Albuterol Inhaler [Ventolin Hfa 1 - 2 puff INHALATION RT-Q6H PRN 01/03/17 History Inhaler] Albuterol Nebulized [Ventolin 2.5 mg INHALATION RT-DAILY PRN 01/03/17 01/03/17 History Nebulized] Allergies Allergy/AdvReac Type Severity Reaction Status Date / Time No Known Allergies Allergy Verified 01/03/17 21:40 Physical Examination - Vital Signs Vital Signs: Vital Signs Temp Pulse Pulse Resp BP BP Pulse Ox 01/03/17 21:04 98.5 F 95 16 142/72 97 01/03/17 20:53 18 01/03/17 20:08 144/57 01/03/17 19:55 97.0 F L 77 18 168/79 98 01/03/17 17:52 97.0 F L 83 16 196/82 100 01/03/17 15:48 98.0 F 79 17 147/93 98 Intake and Output 01/03/17 01/03/17 01/03/17 06:59 14:59 22:59 Other: Voiding Method Toilet Weight 56.245 kg Patient Weight 01/04/17 06:59 Weight 56.245 kg - Constitutional General appearance: average body habitus - EENT EENT: PERRL, hearing intact, vision intact - Respiratory Respiratory: lungs clear - Cardiovascular Cardiovascular: regular rate, normal S1, normal S2 - Neurologic Mental status she was awake alert and oriented 3 her speech is fluent there was no a aphasia or dysarthria. Speech examination: intact Sensorimotor examination: pronator drift Detailed motor examination: grossly full strength in all extremities, full strength in all major muscle groups Motor examination - right side: 5/5: biceps, triceps, wrist flexion, wrist extension, rubber roller grinder, hip flexors, knee extensors, dorsiflexion, toe extension (EHL) , plantarflexion Motor examination - left side: 5/5: biceps, triceps, wrist flexion, wrist extension, rubber roller grinder, hip flexors, knee extensors, dorsiflexion, toe extension (EHL) , plantarflexion Reflexes: 2+: knee - Psychiatric Psychiatric: mood/affect appropriate, depressed Results - Laboratory Findings CBC and BMP: 01/03/17 16:00 01/03/17 16:00 Abnormal Lab Findings: Abnormal Labs 01/03/17 01/03/17 01/03/17 15:55 16:00 16:00 RBC 3.60 L Hct 33.6 L Glucose 118 H POC Glucose (mg/dL) 122 H Total Bilirubin 0.1 L 01/03/17 18:00 RBC Hct Glucose POC Glucose (mg/dL) 103 H Total Bilirubin Assessment and Plan (1) Mental status change Status: Acute Code(s): R41.82 - ALTERED MENTAL STATUS, UNSPECIFIED (2) History of seizures Status: Acute Code(s): Z87.898 - PERSONAL HISTORY OF OTHER SPECIFIED CONDITIONS Plan: The patient is a 61-year-old woman with history of seizure disorder who had an episode of confusion on 01/03/2017. She states she went out to get the mail and she landed up and her neighbor's house. She was unaware of how she got there. When she was told that she was in the wrong how she realized what she had done. She reports that she's been under a great deal of stress in her life recently. Also she is been battling with recurrent pneumonia. She is not taking any Narcotics at present but was on it some time back for rib fractures. She lives alone and is planning to move. She has no previous history of confusional episodes. Recommend check trough Keppra and Tegretol levels. Recommend EEG did have a CT of the brain which did not show any abnormality.
[2017-01-04] MEDS: ACETAMINOPHEN TAB 325 MG TAB PO PRN ×4 (00:42→19:49)
[2017-01-04] MEDS: levETIRAcetam 500 MG TAB PO SCH ×2 (08:56→19:49)
[2017-01-04] MEDS: ENOXAPARIN 40 MG/0.4 ML SYRINGE SQ SCH (08:57)
[2017-01-04] MEDS: carBAMazepine 100 MG TAB.ER.12H PO SCH ×2 (08:57→19:49)
[2017-01-04] MEDS ORDERED: PANTOPRAZOLE 40 MG/10 ML VIAL IV SCH (09:00)
[2017-01-05] MEDS: ACETAMINOPHEN TAB 325 MG TAB PO PRN ×2 (01:16→08:30)
--- NOTE | 2017-01-05 07:02 | EEG ---
DATE OF SERVICE: 01/04/2017 INDICATIONS FOR EXAMINATION: This patient is a 61-year-old female with history of seizure disorder and altered mental status. AGE: 61Y EEG FINDINGS: A routine 21-channel, awake digital EEG recording was accomplished utilizing the 10 -20 international system with bipolar and referential montages. The background activity in the most alert resting state consists of a low to medium amplitude, fairly well-developed and well-sustained 6 Hz activity over the posterior head regions. This posterior rhythm attenuates to eye opening. There is a small amount of low amplitude 18 - 20 Hz beta activity seen maximally over the anterior head regions. Muscle and movement artifact was observed on several occasions during the tracing. Hyperventilation was not performed. Photic stimulation at flash frequencies of 2 - 30 Hz produced a minimal occipital driving response. No epileptiform discharges were seen. IMPRESSION: This EEG is moderately abnormal in diffuse fashion due to slowing of the EEG background. The EEG failed to reveal any focal, lateralized or epileptiform abnormalities. Clinical correlation is recommended.
[2017-01-05] MEDS ORDERED: PANTOPRAZOLE 40 MG TABLET PO SCH (07:30)
[2017-01-05] MEDS: levETIRAcetam 500 MG TAB PO SCH (08:29)
[2017-01-05] MEDS: carBAMazepine 100 MG TAB.ER.12H PO SCH (08:29)
[2017-01-05] MEDS: ENOXAPARIN 40 MG/0.4 ML SYRINGE SQ SCH (08:30)
[2017-01-05 12:07] VITALS: BP 132/75; PULSE 71; RESP 16; TEMP 98
--- NOTE | 2017-01-05 17:13 | P.HPIM ---
History of Present Illness H&P Date: 01/04/17 Chief Complaint: Altered mental status Patient is a 61-year-old female, patient of Dr. Kramer and Dr. Turner in the outpatient setting, with medical history significant for COPD, pneumonia, seizure disorder, chronic anemia, and pneumonia with rib fractures. Patient presented to the hospital after she had an episode of confusion where she went to her mailbox to citrus picker the mail and then went to the wrong house afterwards were neighbor informed her she was in the wrong house and then she really allies to what she had done. No history of recent illness, chills, fevers, nausea, vomiting, shortness of breath, chest pain, or abdominal pain. No numbness or tingling. Patient reports that she is under a lot of stress and states that her family doesn't want to have anything to do with her. Patient states she was close to her nephew who committed suicide by hanging. Chest x- ray with no acute cardiopulmonary process. CAT scan with no acute intracranial hemorrhage or midline shift. EKG with evidence of normal sinus rhythm with no ST-T elevation or depression. EEG with evidence of moderately abnormal in diffuse fashion due to slowing of the EEG background but failed to reveal any focal, lateralized, or epileptiform abnormalities. No evidence of fevers. No significant abnormalities on lab work. Patient was admitted for observation with consult to neurology. Past Medical History Past Medical History: COPD, Pneumonia, Seizure Disorder Additional Past Medical History / Comment(s): Anemia, pneumonia with rib fractures 09/23 History of Any Multi-Drug Resistant Organisms: None Reported Past Surgical History: No Surgical Hx Reported Additional Past Surgical History / Comment(s): Lung surgery, ENLARGED LYMPH NODE REMOVED BY DR. LUNDBERG Past Anesthesia/Blood Transfusion Reactions: No Reported Reaction Past Psychological History: No Psychological Hx Reported Smoking Status: Never smoker Past Alcohol Use History: None Reported Past Drug Use History: None Reported - Past Family History Mother Family Medical History: No Reported History Medications and Allergies Home Medications Medication Instructions Recorded Confirmed Type levETIRAcetam [Keppra] 1,000 mg PO BID 12/19/13 01/03/17 History carBAMazepine [Epitol] 200 mg PO BID 11/29/16 01/03/17 History Albuterol Inhaler [Ventolin Hfa 1 - 2 puff INHALATION RT-Q6H PRN 01/03/17 History Inhaler] Albuterol Nebulized [Ventolin 2.5 mg INHALATION RT-DAILY PRN 01/03/17 01/03/17 History Nebulized] Allergies Allergy/AdvReac Type Severity Reaction Status Date / Time No Known Allergies Allergy Verified 01/03/17 21:40 Physical Exam Vitals: Vital Signs Temp Pulse Pulse Resp BP BP Pulse Ox 01/04/17 12:00 97.7 F 86 18 163/77 100 01/04/17 08:00 115 H 18 01/04/17 07:36 97.8 F 115 H 18 144/70 99 01/04/17 07:11 99 01/04/17 04:00 18 01/04/17 03:53 98.3 F 72 18 135/61 97 01/04/17 00:00 98.2 F 83 18 129/65 98 01/03/17 23:53 16 01/03/17 21:04 98.5 F 95 16 142/72 97 01/03/17 20:53 18 01/03/17 20:08 144/57 01/03/17 19:55 97.0 F L 77 18 168/79 98 01/03/17 17:52 97.0 F L 83 16 196/82 100 Intake and Output 01/04/17 01/04/17 01/04/17 06:59 14:59 22:59 Intake Total 440 Balance 440 Intake: Oral 440 Other: Voiding Method Toilet Toilet # Voids 3 GENERAL: Pt awake and alert, well-appearing, well-nourished, and in no acute distress. HEAD: Atraumatic, normocephalic. EYES: Pupils equal, round, and reactive to light, extraocular movements intact, sclera anicteric, conjunctiva are normal. ENT: Moist mucous membranes. NECK:Supple without lymphadenopathy or JVD. No carotid bruits. Thyroid midline, small and firm without palpable masses. LUNGS: Breath sounds clear to auscultation bilaterally. No wheezes, rales, or rhonchi. HEART: Heart S1, S2, no S3 or S4. Regular rate and rhythm. No murmurs, rubs or gallops. ABDOMEN: Soft, nontender, nondistended, normoactive bowel sounds. No guarding, no rebound. No masses or organomegaly appreciated. EXTREMITIES: 2+ peripheral pulses. No edema, clubbing or cyanosis. No calf tenderness. NEUROLOGICAL: Pt oriented x 3. Cranial nerves II through XII grossly intact. Strength and sensation grossly intact. PSYCH: Normal mood, normal affect. SKIN: Warm, dry, intact. Normal turgor. No rashes or lesions. Results CBC & Chem 7: 01/03/17 16:00 01/03/17 16:00 Labs: Abnormal Lab Results - Last 24 Hours (Table) 01/03/17 01/03/17 01/03/17 Range/Units 16:00 16:00 18:00 RBC 3.60 L (3.80-5.40) m/uL Hct 33.6 L (34.0-46.0) % Glucose 118 H (74-99) mg/dL POC Glucose (mg/dL) 103 H (75-99) mg/dL Total Bilirubin 0.1 L (0.2-1.3) mg/dL Chest x-ray: report reviewed CT Scan - head: report reviewed Thrombosis Risk Factor Assmnt - DVT/VTE Prophylaxis DVT/VTE Prophylaxis: Low risk, early ambulation encouraged - Choose All That Apply Each Factor Represents 1 point: Abnormal pulmonary function (COPD), Age 41-60 years Other Risk Factors: No Other congenital or acquired thrombophilia - If yes, enter type in comment: No Thrombosis Risk Factor Assessment Total Risk Factor Score: 2 Thrombosis Risk Factor Assessment Level: Low Risk Assessment and Plan Plan: Impression: 1. Altered mental status, etiology unknown. 2. History of seizures. 3. History of COPD, without exacerbation. 4. History of anemia. 5. History of pneumonia with retractors in September 2016. Plan: Consult psychiatric service for mental status changes. Neurology notes reviewed. Continue to monitor patient. Home medications of been reviewed and resumed. Will reevaluate in 24 hours.
--- NOTE | 2017-01-05 17:16 | P.DS ---
Providers Date of admission: 01/03/17 19:37 Expected date of discharge: 01/05/17 Attending physician: Alexis Kramer Consults: 01/03/17 19:39 Consult Physician Routine Consulting Provider: Rossana Mayers Consult Reason/Comments: ms changes Do you want consulting provider notified?: Yes 01/04/17 19:15 Consult Physician Routine Consulting Provider: Bobby Quevedo Consult Reason/Comments: Mental status change Do you want consulting provider notified?: Yes Primary care physician: Jordi Turner Hospital Course: Patient is a 61-year-old female, patient of Dr. Kramer and Dr. Turner in the outpatient setting, with medical history significant for COPD, pneumonia, seizure disorder, chronic anemia, and pneumonia with rib fractures. 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 No history of recent illness, chills, fevers, nausea, vomiting, shortness of breath, chest pain, or abdominal pain. No numbness or tingling. Patient reports that she is under a lot of stress and states that her family doesn't want to have anything to do with her. Patient states she was close to her nephew who committed suicide by hanging. Chest x- ray with no acute cardiopulmonary process. CAT scan with no acute intracranial hemorrhage or midline shift. EKG with evidence of normal sinus rhythm with no ST-T elevation or depression. EEG with evidence of moderately abnormal in diffuse fashion due to slowing of the EEG background but failed to reveal any focal, lateralized, or epileptiform abnormalities. No evidence of fevers. No significant abnormalities on lab work. Patient was admitted for observation with consult to neurology and psychiatry. Patient was evaluated by EPS nurse, and patient was set up for outpatient counseling with [facility] services. Patient agreed to treatment plan. Patient was deemed stable for discharge with close follow-up in the outpatient setting. Discharge diagnoses: 1. Altered mental status, etiology unknown. 2. History of seizures. 3. History of COPD, without exacerbation. 4. History of anemia. 5. History of pneumonia with retractors in September 2016. The above impression and plan have been discussed and directed by Dr. Kramer. Birgitte DONOR PROCESSOR-C acting as scribe for Dr. Kramer. Pertinent Studies: Chest x-ray; brain CT; EEG; EKG Patient Condition at Discharge: Good Plan - Discharge Summary New Discharge Prescriptions: Continue levETIRAcetam [Keppra] 1,000 mg PO BID carBAMazepine [Epitol] 200 mg PO BID Albuterol Inhaler [Ventolin Hfa Inhaler] 1 - 2 puff INHALATION RT-Q6H PRN PRN Reason: Shortness Of Breath Albuterol Nebulized [Ventolin Nebulized] 2.5 mg INHALATION RT-DAILY PRN PRN Reason: Shortness Of Breath Discharge Medication List levETIRAcetam [Keppra] 1,000 mg PO BID 12/19/13 [History] carBAMazepine [Epitol] 200 mg PO BID 11/29/16 [History] Albuterol Inhaler [Ventolin Hfa Inhaler] 1 - 2 puff INHALATION RT-Q6H PRN [History] Albuterol Nebulized [Ventolin Nebulized] 2.5 mg INHALATION RT-DAILY PRN [History] Follow up Appointment(s)/Referral(s): Alexis Kramer Jr, [Doctor of Osteopathic Medicine] - 1 Week Patient Instructions/Handouts: Anxiety (GEN) Activity/Diet/Wound Care/Special Instructions: [facility] Social Service Therapist will call and set up home visit with patient. [phone] [place] [phone] Phone number: Discharge Disposition: HOME SELF-CARE
== END 2017-01-05 16:20 | disposition home or self-care (01) ==
LOC: EC 15:46 → 3OBS 19:37
PROVIDERS: ADMIT Family Medicine; ATTEND Family Medicine
DX: R41.82 Altered mental status, unspecified (principal); Z79.899 Other long term (current) drug therapy; Z87.01 Personal history of pneumonia (recurrent); G40.909 Epilepsy, unspecified, not intractable, without status epilepticus; J44.9 Chronic obstructive pulmonary disease, unspecified; D64.9 Anemia, unspecified; R59.9 Enlarged lymph nodes, unspecified; I10 Essential (primary) hypertension
CPT/HCPCS: 96361 ×3; 96372 ×2; 96375; 96374; 99285; 36415; 94760; 95819; 93005; 80156; 80053; 80177; 82140; 82550; 82553; 84484; 85025; 85610; 85730; 81003; 80306; 71020; 70450; G0378 ×3; J0360; J1650 ×2; C9113; 96368

== ENCOUNTER 2017-01-18 16:25 | Inpatient (IN) | payer OTHER ==
[2017-01-18 17:17] LABS: Basophils # (A) 0.1 k/uL (0-0.2); Basophils % (A) 1 %; CH 32.7; CHCM 34.5; Eosinophils # (A) 0.1 k/uL (0-0.7); Eosinophils % (A) 2 %; HCT 34.5 % (34.0-46.0); HDW 2.39; HGB 11.5 gm/dL (11.4-16.0); Luc # (Auto) 0.13; Luc % (Auto) 2; Lymphocytes # (A) 0.9 k/uL (1.0-4.8); Lymphocytes % (A) 17 %; MCH 31.8 pg (25.0-35.0); MCHC 33.4 g/dL (31.0-37.0); MCV 95.1 fL (80.0-100.0); Mean Platelet Volume 6.8; Monocytes # (A) 0.4 k/uL (0-1.0); Monocytes % (A) 8 %; Neutrophils # (A) 3.6 k/uL (1.3-7.7); Neutrophils % (A) 69 %; RBC 3.63 m/uL (3.80-5.40); RDW 12.7 % (11.5-15.5); WBC 5.2 k/uL (3.8-10.6)
[2017-01-18 17:30] LABS: Anion Gap 9 mmol/L; Blood Urea Nitrogen 10 mg/dL (7-17); Calcium 8.9 mg/dL (8.4-10.2); Carbamazepine (Tegretol) 7.3 ug/mL; Carbon Dioxide 25 mmol/L (22-30); Chloride 105 mmol/L (98-107); Glucose 100 mg/dL (74-99); Magnesium 2.2 mg/dL (1.6-2.3); Non-African American GFR(MDRD) >60 (>60 ml/min/1.73 sqM); Potassium 3.9 mmol/L (3.5-5.1); Sodium 139 mmol/L (137-145)
--- NOTE | 2017-01-18 18:11 | XR ---
EXAMINATION TYPE: XR chest 2V DATE OF EXAM: 01/18/2017 COMPARISON: NONE HISTORY: Altered mental status and weakness TECHNIQUE: Frontal and lateral views of the chest are obtained. FINDINGS: Heart and mediastinum are normal. Lungs are clear. Diaphragm is normal. Bony thorax is int act. IMPRESSION: Normal chest
--- NOTE | 2017-01-18 18:11 | CT ---
EXAMINATION TYPE: CT brain wo con DATE OF EXAM: 01/18/2017 COMPARISON: 01/03/2017 HISTORY: Weakness and confusion CT DLP: 1121 mGycm Automated exposure control for dose reduction was used. FINDINGS: There is no mass effect nor midline shift. There is no sign of intracranial hemorrhage. There is slig ht asymmetric enlargement of the temporal horn left lateral ventricle compared to the right. This is stable compared to old exam and is probably of no clinical significance. The calvarium appears intact . IMPRESSION: Negative unenhanced head CT scan. No change.
--- NOTE | 2017-01-18 18:19 | ED ---
General Adult HPI - General Chief complaint: Altered Mental Status Stated complaint: ALTERED MENTAL Time Seen by Provider: 01/18/17 16:39 Source: patient, EMS, RN notes reviewed Mode of arrival: EMS Limitations: no limitations - History of Present Illness Initial comments: 61 year old female with history of epilepsy presenting for altered mental status. Patient states she remembers last walking with her neighbor out to her mailbox this afternoon and then doesn't remember anything after that. Per EMS report, patient began wandering and speaking incoherently. Patient states she feels mostly back to normal at this time. She does appear somewhat confused during examination. She states she was in the hospital recently for similar symptoms and had workup. She denies any focal neurological deficits. She denies any shortness of breath or chest pain. She denies any fevers or chills. She states she has been taking her medications to her knowledge. - Related Data Home Medications Medication Instructions Recorded Confirmed levETIRAcetam [Keppra] 1,000 mg PO BID 12/19/13 01/18/17 carBAMazepine [Epitol] 200 mg PO BID 11/29/16 01/18/17 Albuterol Inhaler [Ventolin Hfa 1 - 2 puff INHALATION RT-Q6H PRN 01/03/17 Inhaler] Albuterol Nebulized [Ventolin 2.5 mg INHALATION RT-DAILY PRN 01/03/17 01/18/17 Nebulized] ALPRAZolam [Xanax] 0.25 mg PO TID PRN 01/18/17 01/18/17 Allergies Allergy/AdvReac Type Severity Reaction Status Date / Time No Known Allergies Allergy Verified 01/18/17 17:45 Review of Systems ROS Statement: Those systems with pertinent positive or pertinent negative responses have been documented in the HPI. ROS Other: All systems not noted in ROS Statement are negative. Past Medical History Past Medical History: COPD, Pneumonia, Seizure Disorder Additional Past Medical History / Comment(s): Anemia, pneumonia with rib fractures 09/23 History of Any Multi-Drug Resistant Organisms: None Reported Past Surgical History: No Surgical Hx Reported Additional Past Surgical History / Comment(s): Lung surgery, ENLARGED LYMPH NODE REMOVED BY DR. LUNDBERG Past Anesthesia/Blood Transfusion Reactions: No Reported Reaction Past Psychological History: No Psychological Hx Reported Smoking Status: Never smoker Past Alcohol Use History: None Reported Past Drug Use History: None Reported - Past Family History Mother Family Medical History: No Reported History General Exam - General Exam Comments Initial Comments: General: Awake and Alert. No acute distress. Does not appear acutely ill. Eyes: [place], EOM intact. No nystagmus. No scleral icterus. HENT: Atraumatic, normocephalic. Mucous membranes moist. Trachea midline. Neck: The neck is supple, there is no tenderness or JVD. Cardiovascular: Regular rate and rhythm. No murmur, rub, or gallop is appreciated. Distal pulses intact. Respiratory: Lungs are clear to auscultation bilaterally. No wheezes, rales, rhonchi. No respiratory distress. Gastrointestinal: Soft, Nontender. No rebound or guarding. Non-distended. No masses or organomegaly noted. No CVA tenderness. Musculoskeletal: No tenderness. Normal ROM. No gross deformity. No strength deficits. Neurological: A&Ox2, appears mildly confused. CN II-XII grossly intact, There are no obvious motor or sensory deficits. Coordination appears grossly intact. Speech is normal. Skin: Skin is warm and dry and no rashes or lesions are noted. Psychiatric: Cooperative, appropriate mood & affect, normal judgment. Limitations: no limitations Course Vital Signs 01/18/17 01/18/17 01/18/17 16:33 18:38 19:22 Temperature 97.8 F 98.4 F Pulse Rate 74 81 72 Respiratory 16 18 18 Rate Blood Pressure 154/75 185/80 149/76 O2 Sat by Pulse 98 99 Oximetry EKG Findings - EKG Comments: EKG Findings:: EKG 17:46. No sinus rhythm. Rate 72. Normal axis. Borderline criteria for LVH. No STEMI. Nonspecific EKG. Medical Decision Making - Medical Decision Making 61-year-old female presenting for altered mental status. She has a history of epilepsy. She was recently admitted and evaluated for similar symptoms about 2 weeks ago. Patient states she does not remember events that happened after walking to her mailbox this afternoon. Her neighbor called EMS after she was acting altered. Patient is currently somewhat confused on initial exam. There are no focal neurological deficits on exam. Lower suspicion of CVA at this time. Lab work and imaging was ordered. Lab work grossly stable CT head grossly unremarkable Chest x-ray grossly unremarkable Patient reevaluated and still feeling somewhat confused. She states she has some overall fatigue but no other active complaints. No new neurological deficits have developed. Uncertain etiology of altered mental status this time , concern for possible complex seizures. Patient lives alone and is not safe for discharge at this time in her confused state. Discussed plan for admission for further neurological evaluation. Spoke with Dr. Turner, agrees with plan for admission. Requests neurology consult. Requests MRI brain. - Lab Data Result diagrams: 01/18/17 17:04 01/18/17 17:04 Lab Results 01/18/17 01/18/17 01/18/17 Range/Units 17:04 17:04 17:04 WBC 5.2 (3.8-10.6) k/uL RBC 3.63 L (3.80-5.40) m/uL Hgb 11.5 (11.4-16.0) gm/dL Hct 34.5 (34.0-46.0) % MCV 95.1 (80.0-100.0) fL MCH 31.8 (25.0-35.0) pg MCHC 33.4 (31.0-37.0) g/dL RDW 12.7 (11.5-15.5) % Plt Count 319 (150-450) k/uL Neutrophils % 69 % Lymphocytes % 17 % Monocytes % 8 % Eosinophils % 2 % Basophils % 1 % Neutrophils # 3.6 (1.3-7.7) k/uL Lymphocytes # 0.9 L (1.0-4.8) k/uL Monocytes # 0.4 (0-1.0) k/uL Eosinophils # 0.1 (0-0.7) k/uL Basophils # 0.1 (0-0.2) k/uL Sodium 139 (137-145) mmol/L Potassium 3.9 (3.5-5.1) mmol/L Chloride 105 (98-107) mmol/L Carbon Dioxide 25 (22-30) mmol/L Anion Gap 9 mmol/L BUN 10 (7-17) mg/dL Creatinine 0.80 (0.52-1.04) mg/dL Est GFR (MDRD) Af Amer >60 (>60 ml/min/1.73 sqM) Est GFR (MDRD) Non-Af >60 (>60 ml/min/1.73 sqM) Glucose 100 H (74-99) mg/dL Calcium 8.9 (8.4-10.2) mg/dL Magnesium 2.2 (1.6-2.3) mg/dL Troponin I (0.000-0.034) ng/mL NT-Pro-B Natriuret Pep 166 pg/mL Urine Color Urine Appearance (Clear) Urine pH (5.0-8.0) Ur Specific [place] (1.001-1.035) Urine Protein (Negative) Urine Glucose (UA) (Negative) Urine Ketones (Negative) Urine Blood (Negative) Urine Nitrite (Negative) Urine Bilirubin (Negative) Urine Urobilinogen (<2.0) mg/dL Ur Leukocyte Esterase (Negative) Urine RBC (0-5) /hpf Urine WBC (0-5) /hpf Ur Squamous Epith Cells (0-4) /hpf Amorphous Sediment (None) /hpf Urine Mucus (None) /hpf Carbamazepine 7.3 ug/mL 01/18/17 01/18/17 Range/Units 17:04 18:30 WBC (3.8-10.6) k/uL RBC (3.80-5.40) m/uL Hgb (11.4-16.0) gm/dL Hct (34.0-46.0) % MCV (80.0-100.0) fL MCH (25.0-35.0) pg MCHC (31.0-37.0) g/dL RDW (11.5-15.5) % Plt Count (150-450) k/uL Neutrophils % % Lymphocytes % % Monocytes % % Eosinophils % % Basophils % % Neutrophils # (1.3-7.7) k/uL Lymphocytes # (1.0-4.8) k/uL Monocytes # (0-1.0) k/uL Eosinophils # (0-0.7) k/uL Basophils # (0-0.2) k/uL Sodium (137-145) mmol/L Potassium (3.5-5.1) mmol/L Chloride (98-107) mmol/L Carbon Dioxide (22-30) mmol/L Anion Gap mmol/L BUN (7-17) mg/dL Creatinine (0.52-1.04) mg/dL Est GFR (MDRD) Af Amer (>60 ml/min/1.73 sqM) Est GFR (MDRD) Non-Af (>60 ml/min/1.73 sqM) Glucose (74-99) mg/dL Calcium (8.4-10.2) mg/dL Magnesium (1.6-2.3) mg/dL Troponin I <0.012 (0.000-0.034) ng/mL NT-Pro-B Natriuret Pep pg/mL Urine Color Light Yellow Urine Appearance Clear (Clear) Urine pH 7.0 (5.0-8.0) Ur Specific [place] 1.005 (1.001-1.035) Urine Protein Negative (Negative) Urine Glucose (UA) Negative (Negative) Urine Ketones Negative (Negative) Urine Blood Trace H (Negative) Urine Nitrite Negative (Negative) Urine Bilirubin Negative (Negative) Urine Urobilinogen <2.0 (<2.0) mg/dL Ur Leukocyte Esterase Negative (Negative) Urine RBC 2 (0-5) /hpf Urine WBC 1 (0-5) /hpf Ur Squamous Epith Cells <1 (0-4) /hpf Amorphous Sediment Rare H (None) /hpf Urine Mucus Rare H (None) /hpf Carbamazepine ug/mL - EKG Data -: EKG Interpreted by Vt EKG shows normal: sinus rhythm Rate: normal - Radiology Data Radiology results: report reviewed, image reviewed Disposition Clinical Impression: Altered mental status, Epilepsy, Amnesia, Fatigue Disposition: ADMITTED IP TO THIS [facility] Condition: Stable Decision to Admit Reason: Admit from EC
[2017-01-18 18:38] LABS: Amorphous Sediment,Urine Rare /hpf; Appearance,Urine Clear (Clear); Bilirubin,Urine Negative (Negative); Glucose,Urine (UA) Negative (Negative); Ketones,Urine Negative (Negative); Leukocyte Esterase,Urine Negative (Negative); Mucus,Urine Rare /hpf; Nitrite,Urine Negative (Negative); Particle Count 275; Protein,Urine Negative (Negative); RBC,Urine 2 /hpf (0-5); Specific Gravity,Urine 1.005 (1.001-1.035); Squamous Epithelial Cell,Urine <1 /hpf (0-4); UA Billing (MACRO vs. MICRO) MICRO; Urobilinogen,Urine <2.0 mg/dL (<2.0); WBC,Urine 1 /hpf (0-5)
[2017-01-18] MEDS ORDERED: LACTATED RINGERS 1,000 ML IV SCH (19:15)
[2017-01-18] MEDS ORDERED: NALOXONE 0.4 MG/ML 1 ML VIAL IV PRN (19:15)
[2017-01-18] MEDS ORDERED: ONDANSETRON 4 MG/2 ML VIAL IVP PRN (19:22)
[2017-01-18] MEDS: SODIUM CHLORIDE 0.9% 1,000 ML IV SCH (22:03)
[2017-01-18 22:30] VITALS: BMI 22.4
[2017-01-18] MEDS: ACETAMINOPHEN TAB 325 MG TAB PO PRN (23:11)
[2017-01-18] MEDS: levETIRAcetam 500 MG TAB PO SCH (23:13)
[2017-01-19] MEDS: HEPARIN SODIUM,PORCINE 5,000 UNIT/ML 1 ML VIAL SQ SCH ×3 (01:16→17:32)
[2017-01-19 08:06] LABS: Basophils % (A) 1 %; CH 32.6; CHCM 34.7; Eosinophils # (A) 0.1 k/uL (0-0.7); Eosinophils % (A) 3 %; HCT 34.3 % (34.0-46.0); HDW 2.47; HGB 11.5 gm/dL (11.4-16.0); Luc # (Auto) 0.13; Luc % (Auto) 3; Lymphocytes # (A) 1.1 k/uL (1.0-4.8); Lymphocytes % (A) 25 %; MCH 31.7 pg (25.0-35.0); MCHC 33.6 g/dL (31.0-37.0); MCV 94.2 fL (80.0-100.0); Mean Platelet Volume 6.7; Monocytes # (A) 0.3 k/uL (0-1.0); Monocytes % (A) 8 %; Neutrophils # (A) 2.7 k/uL (1.3-7.7); Neutrophils % (A) 61 %; RBC 3.64 m/uL (3.80-5.40); RDW 12.3 % (11.5-15.5); WBC 4.4 k/uL (3.8-10.6)
[2017-01-19 08:15] LABS: Glucose,Whole Blood 122 mg/dL (75-99)
[2017-01-19 08:23] LABS: Anion Gap 10 mmol/L; Blood Urea Nitrogen 13 mg/dL (7-17); Calcium 8.7 mg/dL (8.4-10.2); Carbon Dioxide 24 mmol/L (22-30); Chloride 108 mmol/L (98-107); Glucose 92 mg/dL (74-99); Magnesium 2.2 mg/dL (1.6-2.3); Non-African American GFR(MDRD) >60 (>60 ml/min/1.73 sqM); Phosphorous 3.5 mg/dL (2.5-4.5); Potassium 4.1 mmol/L (3.5-5.1); Sodium 142 mmol/L (137-145)
[2017-01-19] MEDS: levETIRAcetam 500 MG TAB PO SCH ×2 (08:58→21:52)
[2017-01-19] MEDS: HYDROcodone/APAP 5-325MG 1 EACH TAB PO PRN ×2 (08:59→14:08)
--- NOTE | 2017-01-19 11:28 | P.HPIM ---
History of Present Illness H&P Date: 01/19/17 Chief Complaint: Confusion and weakness Patient is a 61-year-old female with medical history significant for COPD, pneumonia, seizure disorder, chronic anemia, and recent pneumonia with rib fractures. Patient presented to the hospital after she had an episode of dysarthria and confusion. He is brought emergency room via EMS. CAT scan shows no acute intracranial hemorrhage or midline shift. EKG negative. No significant abnormalities on lab work. This morning she is AAO 3. She is very concerned about her neighbor trying to take things from her. Staff indicates tonic-clonic activity overnight. She complains of trouble moving her right leg this AM. Review of Systems All systems: negative Past Medical History Past Medical History: COPD, Pneumonia, Seizure Disorder Additional Past Medical History / Comment(s): Anemia, pneumonia with rib fractures 09/23 History of Any Multi-Drug Resistant Organisms: None Reported Past Surgical History: No Surgical Hx Reported Additional Past Surgical History / Comment(s): Lung surgery, ENLARGED LYMPH NODE REMOVED BY DR. LUNDBERG Past Anesthesia/Blood Transfusion Reactions: No Reported Reaction Past Psychological History: No Psychological Hx Reported Smoking Status: Never smoker Past Alcohol Use History: None Reported Past Drug Use History: None Reported - Past Family History Mother Family Medical History: No Reported History Medications and Allergies Home Medications Medication Instructions Recorded Confirmed Type levETIRAcetam [Keppra] 1,000 mg PO BID 12/19/13 01/18/17 History carBAMazepine [Epitol] 200 mg PO BID 11/29/16 01/18/17 History Albuterol Inhaler [Ventolin Hfa 1 - 2 puff INHALATION RT-Q6H PRN 01/03/17 History Inhaler] Albuterol Nebulized [Ventolin 2.5 mg INHALATION RT-DAILY PRN 01/03/17 01/18/17 History Nebulized] ALPRAZolam [Xanax] 0.25 mg PO TID PRN 01/18/17 01/18/17 History Allergies Allergy/AdvReac Type Severity Reaction Status Date / Time No Known Allergies Allergy Verified 01/18/17 17:45 Physical Exam Vitals: Vital Signs Temp Pulse Pulse Resp BP BP Pulse Ox 01/19/17 07:40 97.7 F 87 20 156/73 99 01/18/17 23:00 97.1 F L 71 16 156/91 99 01/18/17 19:49 97.1 F L 72 18 124/58 99 01/18/17 19:22 98.4 F 72 18 149/76 99 01/18/17 19:15 99 01/18/17 18:38 81 18 185/80 98 01/18/17 16:33 97.8 F 74 16 154/75 Intake and Output 01/18/17 01/19/17 01/19/17 22:59 06:59 14:59 Other: # Voids 1 Weight 55.5 kg GENERAL: anxious-appearing,thin and in no acute distress, white female who looks slightly older than her stated age of 61. HEAD: Atraumatic, normocephalic. EYES: Pupils equal round and reactive to light, extraocular movements intact, sclera anicteric, conjunctiva are normal. ENT:nares patent, oropharynx clear without exudates. Moist mucous membranes. NECK: Normal range of motion, supple without lymphadenopathy or JVD, no thyromegaly LUNGS: Breath sounds clear to auscultation bilaterally and equal. No wheezes rales or rhonchi. HEART: Regular rate and rhythm without murmurs, rubs or gallops.S1S2 Normal ABDOMEN: Soft, nontender, normoactive bowel sounds. No guarding, no rebound. No masses appreciated. EXTREMITIES: no pitting or edema. No clubbing or cyanosis. NEUROLOGICAL: Cranial nerves II through XII grossly intact. Normal speech, not testable, she has weakness and difficulty moving her right leg and toes. Strength appears 5 out of 5 in the upper extremities. PSYCH: Normal mood, normal affect. SKIN: Warm, Dry, normal turgor, no rashes or lesions noted. Results CBC & Chem 7: 01/19/17 07:39 01/19/17 07:39 Labs: Abnormal Lab Results - Last 24 Hours (Table) 01/18/17 01/18/17 01/18/17 Range/Units 17:04 17:04 18:30 RBC 3.63 L (3.80-5.40) m/uL Lymphocytes # 0.9 L (1.0-4.8) k/uL Chloride (98-107) mmol/L Glucose 100 H (74-99) mg/dL POC Glucose (mg/dL) (75-99) mg/dL Urine Blood Trace H (Negative) Amorphous Sediment Rare H (None) /hpf Urine Mucus Rare H (None) /hpf 01/19/17 01/19/17 01/19/17 Range/Units 07:39 07:39 08:13 RBC 3.64 L (3.80-5.40) m/uL Lymphocytes # (1.0-4.8) k/uL Chloride 108 H (98-107) mmol/L Glucose (74-99) mg/dL POC Glucose (mg/dL) 122 H (75-99) mg/dL Urine Blood (Negative) Amorphous Sediment (None) /hpf Urine Mucus (None) /hpf Chest x-ray: report reviewed CT Scan - head: report reviewed Thrombosis Risk Factor Assmnt - DVT/VTE Prophylaxis DVT/VTE Prophylaxis: Pharmacologic Prophylaxis ordered Assessment and Plan Plan: Dysarthria and weakness, rule out occult CVA: We'll schedule her for an MRI as she's had several CT brains all negative. We'll await neurology recommendations. It's also possible that these are just postictal states. Seizure disorder: She will continue on her Keppra, carbamazepine,. Neurology consultations in place. changes, we'll plan on them evaluate her. EKG was reviewed and is sinus tachycardia at a rate of 107 DVT prophylaxis: She'll continue on subcutaneous heparin. GI prophylaxis: I will start her on Pepcid.
--- NOTE | 2017-01-19 12:30 | MR ---
MR brain without contrast HISTORY: Mental status changes, epilepsy Multiplanar multisequence images obtained through the brain. Exam is correlated to prior CT brain 01/05, prior brain MRI dated 01/15/2013 The area of abnormal signal involving the left temporal lobe is again noted and is thought to be of s imilar size. There is no restricted diffusion. No hemorrhage or hydrocephalus. Corpus callosum, pitui tary, cervical medullary junction, cerebellopontine angles are stable. There are normal vascular flow voids. The orbits show symmetric appearance. There is atrophy of the cerebellum. IMPRESSION: Stable findings. Cerebellar atrophy could be due to chronic Dilantin therapy.
[2017-01-19] MEDS: SODIUM CHLORIDE 0.9% 1,000 ML IV SCH (13:36)
[2017-01-19] MEDS: ACETAMINOPHEN TAB 325 MG TAB PO PRN (18:23)
[2017-01-20] MEDS: HEPARIN SODIUM,PORCINE 5,000 UNIT/ML 1 ML VIAL SQ SCH ×4 (02:15→22:49)
[2017-01-20] MEDS: SODIUM CHLORIDE 0.9% 1,000 ML IV SCH ×2 (02:15→15:15)
[2017-01-20] MEDS: ACETAMINOPHEN TAB 325 MG TAB PO PRN ×3 (06:11→22:48)
[2017-01-20 07:40] LABS: Basophils % (A) 1 %; CH 32.4; CHCM 33.7; Eosinophils # (A) 0.2 k/uL (0-0.7); Eosinophils % (A) 4 %; HCT 35.1 % (34.0-46.0); HDW 2.36; HGB 11.6 gm/dL (11.4-16.0); Luc # (Auto) 0.11; Luc % (Auto) 3; Lymphocytes # (A) 1.1 k/uL (1.0-4.8); Lymphocytes % (A) 30 %; MCH 31.9 pg (25.0-35.0); MCV 96.6 fL (80.0-100.0); Monocytes # (A) 0.4 k/uL (0-1.0); Monocytes % (A) 11 %; Neutrophils # (A) 1.8 k/uL (1.3-7.7); Neutrophils % (A) 51 %; RBC 3.63 m/uL (3.80-5.40); RDW 12.7 % (11.5-15.5); WBC 3.6 k/uL (3.8-10.6); WBC (Perox) 3.81
[2017-01-20 08:07] LABS: Anion Gap 8 mmol/L; Blood Urea Nitrogen 11 mg/dL (7-17); Calcium 8.8 mg/dL (8.4-10.2); Carbon Dioxide 28 mmol/L (22-30); Chloride 107 mmol/L (98-107); Glucose 86 mg/dL (74-99); Magnesium 2.2 mg/dL (1.6-2.3); Non-African American GFR(MDRD) >60 (>60 ml/min/1.73 sqM); Potassium 4.2 mmol/L (3.5-5.1); Sodium 143 mmol/L (137-145)
[2017-01-20] MEDS: levETIRAcetam 500 MG TAB PO SCH ×2 (08:38→22:49)
--- NOTE | 2017-01-20 14:03 | P.PN ---
Subjective Patient is a 61-year-old female with medical history significant for COPD, pneumonia, seizure disorder, chronic anemia, and recent pneumonia with rib fractures. Patient presented to the hospital after she had an episode of dysarthria and confusion. He is brought emergency room via EMS. CAT scan shows no acute intracranial hemorrhage or midline shift. EKG negative. No significant abnormalities on lab work. 01/19 she is AAO 3. She is very concerned about her neighbor trying to take things from her. Staff indicates tonic-clonic activity overnight. She complains of trouble moving her right leg this AM. 01/20: She is going out for an EEG now. MRI was essentially normal without significant changes from her last one. Staff is concerned as she indicates her leg is tremor tremoring and she appears to be moving it herself. Objective - Vital Signs Vital signs: Vital Signs Temp 97.9 F 01/20/17 07:00 Pulse 66 01/20/17 07:00 Resp 16 01/20/17 07:00 BP 110/82 01/20/17 07:00 Pulse Ox 99 01/20/17 07:00 Intake & Output 01/19/17 01/20/17 01/20/17 18:59 06:59 18:59 Intake Total 480 Balance 480 Weight 55.5 kg Intake: Oral 480 Other: Voiding Method Toilet Toilet # Voids 2 2 - Exam GENERAL: anxious-appearing,thin and in no acute distress, white female who looks slightly older than her stated age of 61. NECK: Normal range of motion, supple without lymphadenopathy or JVD, no thyromegaly LUNGS: Breath sounds clear to auscultation bilaterally and equal. No wheezes rales or rhonchi. HEART: Regular rate and rhythm without murmurs, rubs or gallops.S1S2 Normal ABDOMEN: Soft, nontender, normoactive bowel sounds. No guarding, no rebound. No masses appreciated. EXTREMITIES: no pitting or edema. No clubbing or cyanosis. NEUROLOGICAL: Cranial nerves II through XII grossly intact. Normal speech, not testable, she has weakness and difficulty moving her right leg and toes. Strength appears 5 out of 5 in the upper extremities. PSYCH: Normal mood, normal affect. - Labs CBC & Chem 7: 01/20/17 07:09 01/20/17 07:09 Labs: Abnormal Lab Results - Last 24 Hours (Table) 01/20/17 Range/Units 07:09 WBC 3.6 L (3.8-10.6) k/uL RBC 3.63 L (3.80-5.40) m/uL Assessment and Plan Plan: Dysarthria and weakness, rule out occult CVA: MRI was normal. ESR EEG is pending. We'll await neurology recommendations. It's also possible that these are just postictal states. Consult PT Seizure disorder: She will continue on her Keppra, carbamazepine,. Neurology consultations in place. changes, we'll plan on them evaluate her. EKG was reviewed and is sinus tachycardia at a rate of 107 Possible sinus aeration: We'll consult psych DVT prophylaxis: She'll continue on subcutaneous heparin. GI prophylaxis: I tinea Pepcid.
--- NOTE | 2017-01-20 18:42 | P.CONS ---
History of Present Illness - Reason for Consult Consult date: 01/20/17 - Chief Complaint Seizures - History of Present Illness This is a 61-year-old female being evaluated by the neurology service for seizures and altered mental status. She presented to the [facility] emergency room with the last thing she remembered was walking to the mailbox with her neighbor. EMS reports that she began wandering around and speaking incoherently. She reports being back to her baseline now. She reports being fairly well controlled on her current seizure medications of Keppra and Tegretol. She says she has grand mal seizures, and denies that type of seizure activity in a couple years. She also states she has petit mall seizures which she describes as some staring spells. She says she has about one of these a month. She has a mild postictal state after these. She denies any head trauma or recent illness. She denies any headache. She denies any missed doses of her medication. Her drug levels were therapeutic. Perez her lab work was largely normal. CT of the head showed no acute intracranial abnormalities. MRI of the brain was done due to her CT exam. It did show a slight asymmetric enlargement of the left temporal horn. It was stable from a previous exam and was thought to be probably of no clinical significance. A subsequent MRI of the brain notes that the area of abnormal signal is again noted and thought to be of similar size, and that cerebellar atrophy could due to chronic Dilantin therapy. There was no acute intracranial process or evidence of old ischemia. The time of my exam she is resting comfortably in bed. Review of Systems All systems: negative Past Medical History Past Medical History: COPD, Pneumonia, Seizure Disorder Additional Past Medical History / Comment(s): Anemia, pneumonia with rib fractures 09/23 History of Any Multi-Drug Resistant Organisms: None Reported Past Surgical History: No Surgical Hx Reported Additional Past Surgical History / Comment(s): Lung surgery, ENLARGED LYMPH NODE REMOVED BY DR. LUNDBERG Past Anesthesia/Blood Transfusion Reactions: No Reported Reaction Past Psychological History: No Psychological Hx Reported Smoking Status: Never smoker Past Alcohol Use History: None Reported Past Drug Use History: None Reported - Past Family History Mother Family Medical History: No Reported History Medications and Allergies Home Medications Medication Instructions Recorded Confirmed Type levETIRAcetam [Keppra] 1,000 mg PO BID 12/19/13 01/18/17 History carBAMazepine [Epitol] 200 mg PO BID 11/29/16 01/18/17 History Albuterol Inhaler [Ventolin Hfa 1 - 2 puff INHALATION RT-Q6H PRN 01/03/17 History Inhaler] Albuterol Nebulized [Ventolin 2.5 mg INHALATION RT-DAILY PRN 01/03/17 01/18/17 History Nebulized] ALPRAZolam [Xanax] 0.25 mg PO TID PRN 01/18/17 01/18/17 History Allergies Allergy/AdvReac Type Severity Reaction Status Date / Time No Known Allergies Allergy Verified 01/18/17 17:45 Physical Exam Vitals: Vital Signs Temp Pulse Resp BP Pulse Ox 01/20/17 15:00 98.1 F 69 18 143/69 99 01/20/17 07:00 97.9 F 66 16 110/82 99 01/20/17 00:00 67 16 01/19/17 22:33 98.9 F 67 18 132/62 98 Intake and Output 01/20/17 01/20/17 01/20/17 06:59 14:59 22:59 Intake Total 487.5 Balance 487.5 Intake: Intake, IV Titration 487.5 Amount Sodium Chloride 0.9% 1, 487.5 000 ml @ 75 mls/hr IV . [id number] [facility] Rx#:[id number] Other: Voiding Method Toilet Toilet Toilet # Voids 2 2 - Constitutional General appearance: average body habitus, cooperative, no acute distress - EENT Eyes: no abnormal pupil, EOMI, PERRLA, no ptosis ENT: hearing grossly normal - Neck Neck: normal ROM, no rigidity - Respiratory Respiratory: negative: prolonged expiration, prolonged inspiration - Cardiovascular Rhythm: regular - Gastrointestinal General gastrointestinal: no distended, no tenderness - Neurologic Patient is alert awake and oriented 3. Speech-language are normal. There is no facial asymmetry. Strength is full in bilateral upper and lower extremities except for weakness in right plantar flexion and dorsiflexion. (This is a chronic finding) there is no sensory deficit. There is no pronator drift. No tremors or seizure-like activities are seen. She does complain of some shaking of the right leg. She does demonstrate this but is a very purposeful movement. Results CBC & Chem 7: 01/20/17 07:09 01/20/17 07:09 Labs: Abnormal Lab Results - Last 24 Hours (Table) 01/20/17 Range/Units 07:09 WBC 3.6 L (3.8-10.6) k/uL RBC 3.63 L (3.80-5.40) m/uL Assessment and Plan (1) Foot drop, right foot Status: Chronic (2) Post-ictal state Status: Chronic (3) Anxiety Status: Chronic (4) Altered mental status Status: Resolved (5) Epilepsy Status: Chronic Plan: She is likely had an episode of a generalized seizure with an extended postictal state. She seems to be back to baseline. There is a component of anxiety. May consider psychological consultation. She does have some fears about steadiness and ambulation due to her chronic right foot drop. If needed she could be sent to an extended care facility for some physical therapy/ rehabilitation. Recommend continuing her current doses of Tegretol and Keppra. We have ordered an EEG. Barring any unforeseen abnormalities on her EEG she would be cleared from a neurological standpoint. I have reviewed the history and physical on the above patient. I have reviewed the above note, and agree.
[2017-01-20 23:07] VITALS: RESP 16
[2017-01-21] MEDS: SODIUM CHLORIDE 0.9% 1,000 ML IV SCH ×2 (04:58→16:27)
[2017-01-21 07:12] LABS: Basophils % (A) 1 %; CH 32.4; CHCM 35.4; Eosinophils # (A) 0.1 k/uL (0-0.7); Eosinophils % (A) 3 %; HCT 33.3 % (34.0-46.0); HDW 2.56; HGB 11.6 gm/dL (11.4-16.0); Luc # (Auto) 0.13; Luc % (Auto) 3; Lymphocytes % (A) 27 %; MCHC 34.9 g/dL (31.0-37.0); MCV 91.8 fL (80.0-100.0); Mean Platelet Volume 6.7; Monocytes # (A) 0.3 k/uL (0-1.0); Monocytes % (A) 9 %; Neutrophils # (A) 2.1 k/uL (1.3-7.7); Neutrophils % (A) 57 %; RBC 3.63 m/uL (3.80-5.40); RDW 12.2 % (11.5-15.5); WBC 3.7 k/uL (3.8-10.6); WBC (Perox) 3.98
[2017-01-21 07:51] LABS: Anion Gap 9 mmol/L; Blood Urea Nitrogen 10 mg/dL (7-17); Calcium 8.6 mg/dL (8.4-10.2); Carbon Dioxide 25 mmol/L (22-30); Chloride 108 mmol/L (98-107); Glucose 88 mg/dL (74-99); Non-African American GFR(MDRD) >60 (>60 ml/min/1.73 sqM); Potassium 3.8 mmol/L (3.5-5.1); Sodium 142 mmol/L (137-145)
[2017-01-21] MEDS: levETIRAcetam 500 MG TAB PO SCH (08:32)
[2017-01-21] MEDS: HEPARIN SODIUM,PORCINE 5,000 UNIT/ML 1 ML VIAL SQ SCH ×2 (08:33→15:45)
[2017-01-21] MEDS: ACETAMINOPHEN TAB 325 MG TAB PO PRN (08:37)
--- NOTE | 2017-01-21 15:31 | P.DS ---
Providers Date of admission: 01/18/17 19:16 Expected date of discharge: 01/21/17 Attending physician: Jordi Turner Consults: 01/18/17 19:16 Consult Physician Routine Consulting Provider: Yaa Mcguire Consult Reason/Comments: AMS, epilepsy Do you want consulting provider notified?: Yes 01/20/17 13:32 Consult Physician Routine Consulting Provider: Tory Turner Consult Reason/Comments: evaluation Do you want consulting provider notified?: Already Contacted Primary care physician: Jordi Turner Hospital Course: Patient is a 61-year-old female with medical history significant for COPD, pneumonia, seizure disorder, chronic anemia, and recent pneumonia with rib fractures. Patient presented to the hospital after she had an episode of dysarthria and confusion. He is brought emergency room via EMS. CAT scan shows no acute intracranial hemorrhage or midline shift. EKG negative. No significant abnormalities on lab work. 01/19 she is AAO 3. She is very concerned about her neighbor trying to take things from her. Staff indicates tonic-clonic activity overnight. She complains of trouble moving her right leg this AM. 01/20: She went for EEG. MRI was essentially normal without significant changes from her last one. Staff is concerned as she indicates her leg is tremor tremoring and she appears to be moving it herself. 01/21: EEG was still pending however she was improved. She was able to stand and walk and apparently physical therapy for 20 feet. Considering ECF, she doesn't appear to be a candidate. She is under great deal of stress in her home , and this may have contributed to her seizure with significant postictal state. We'll plan on close outpatient follow-up for her. Final diagnosis Dysarthria and weakness due to prolonged postictal to state Seizure disorder Generalized Anxiety disorder Patient Condition at Discharge: Stable Plan - Discharge Summary New Discharge Prescriptions: Continue levETIRAcetam [Keppra] 1,000 mg PO BID carBAMazepine [Epitol] 200 mg PO BID Albuterol Inhaler [Ventolin Hfa Inhaler] 1 - 2 puff INHALATION RT-Q6H PRN PRN Reason: Shortness Of Breath Albuterol Nebulized [Ventolin Nebulized] 2.5 mg INHALATION RT-DAILY PRN PRN Reason: Shortness Of Breath ALPRAZolam [Xanax] 0.25 mg PO TID PRN PRN Reason: Anxiety Discharge Medication List levETIRAcetam [Keppra] 1,000 mg PO BID 12/19/13 [History] carBAMazepine [Epitol] 200 mg PO BID 11/29/16 [History] Albuterol Inhaler [Ventolin Hfa Inhaler] 1 - 2 puff INHALATION RT-Q6H PRN [History] Albuterol Nebulized [Ventolin Nebulized] 2.5 mg INHALATION RT-DAILY PRN [History] ALPRAZolam [Xanax] 0.25 mg PO TID PRN 01/18/17 [History] Follow up Appointment(s)/Referral(s): Jordi Turner MD [Primary Care Provider] - 1 Week Yaa Mcguire MD [STAFF PHYSICIAN] - 1 Week Discharge Disposition: HOME WITH HOME HEALTH SERVICES
[2017-01-21 15:38] VITALS: BP 133/78; PULSE 74; TEMP 97.9
[2017-01-21] MEDS ORDERED: ALPRAZolam 0.5 MG TAB PO STA (16:54)
--- NOTE | 2017-01-22 09:29 | EEG ---
DATE OF SERVICE: 01/20/2017 INDICATIONS FOR EXAMINATION: Seizures. AGE: 61Y CURRENT ANTI-EPILEPTIC MEDICATIONS: Tegretol, Keppra. DESCRIPTION OF PROCEDURE: This EEG was performed using a 21-channel digital electroencephalograph, following international 10 to 20 system. DESCRIPTION OF RECORDING: From the beginning of the tracing, with the patient's eyes closed, the background rhythm was mostly consisting of 8 Hz alpha frequency in the posterior occipital leads. No obvious asymmetry is seen. Photic stimulation was performed with a minimal driving response seen. No pathological waves were elicited. Hyperventilation was not performed. Occasional movement artifacts are seen. The patient remained awake throughout the tracing. No epileptiform discharges were seen. Her EKG leads showed a regular rate and rhythm. INTERPRETATION: This awake EEG can be considered within normal limits. There was no asymmetry seen. No epileptiform discharges were noticed. The absence of epileptiform discharges does not rule out the diagnosis of epilepsy, therefore clinical correlation is recommended.
== END 2017-01-21 20:45 | disposition home or self-care (01) | DRG 101 ==
LOC: EC 16:25 → 5MS5E 19:16
PROVIDERS: ADMIT Family Medicine; ATTEND Family Medicine
DX: G40.409 Other generalized epilepsy and epileptic syndromes, not intractable, without status epilepticus (principal); J44.9 Chronic obstructive pulmonary disease, unspecified; F41.1 Generalized anxiety disorder; M21.379 Foot drop, unspecified foot; Z87.01 Personal history of pneumonia (recurrent); Z79.899 Other long term (current) drug therapy
CPT/HCPCS: 36415; 70450; 70551; 71020; 80048; 80156; 80177; 81001; 83735; 83880; 84100; 84443; 84484; 85025; 93005; 95816; 99285

== ENCOUNTER 2017-02-18 20:17 | Emergency (ER) | payer OTHER ==
[2017-02-18 20:25] VITALS: RESP 18
[2017-02-18] MEDS ORDERED: MECLIZINE 12.5 MG TAB PO STA (20:43)
[2017-02-18] MEDS ORDERED: SODIUM CHLORIDE 0.9% 500 ML IV STA (20:44)
[2017-02-18] MEDS ORDERED: SODIUM CHLORIDE 0.9% 1,000 ML IV STA (20:44)
[2017-02-18 20:47] LABS: Glucose,Whole Blood 98 mg/dL (75-99)
--- NOTE | 2017-02-18 21:00 | ED ---
General Adult HPI - General Chief complaint: Weakness Stated complaint: weakness Time Seen by Provider: 02/18/17 20:26 Source: patient, EMS, RN notes reviewed, old records reviewed Mode of arrival: EMS Limitations: no limitations - History of Present Illness Initial comments: complaint history of present illness is a 61-year-old female scone because of generally feeling weak. She denies headache or chest pain or shortness of breath no GI/ problems. Patient was recently in hospital for several days and diagnosed with post seizure and possible TIA. - Related Data Home Medications Medication Instructions Recorded Confirmed levETIRAcetam [Keppra] 1,000 mg PO BID 12/19/13 01/18/17 carBAMazepine [Epitol] 200 mg PO BID 11/29/16 01/18/17 Albuterol Inhaler [Ventolin Hfa 1 - 2 puff INHALATION RT-Q6H PRN 01/03/17 Inhaler] Albuterol Nebulized [Ventolin 2.5 mg INHALATION RT-DAILY PRN 01/03/17 01/18/17 Nebulized] ALPRAZolam [Xanax] 0.25 mg PO TID PRN 01/18/17 01/18/17 Previous Rx's Medication Instructions Recorded Meclizine [Antivert] 12.5 mg PO TID #30 tab 02/18/17 Allergies Allergy/AdvReac Type Severity Reaction Status Date / Time No Known Allergies Allergy Verified 01/18/17 17:45 Review of Systems ROS Statement: Those systems with pertinent positive or pertinent negative responses have been documented in the HPI. Review of systems no headache or visual acuity changes patient admits to being anxious and has had anxiety attacks in the past. She keeps saying she doesn't feel well without any specific complaint. Denying chest pain shortness of breath GI/ complaints or problems denies any neuro deficits. Denies any pain. All systems were reviewed his medical problems anxiety, COPD, seizure disorder, pneumonia, anemia, possible TIA. Patient denies any surgeries other than biopsy of a mediastinal lymph node. No apparent family history of cancer. Nonsmoker no alcohol, no known ALLERGIES. ROS Other: All systems not noted in ROS Statement are negative. Past Medical History Past Medical History: COPD, Pneumonia, Seizure Disorder Additional Past Medical History / Comment(s): Anemia, pneumonia with rib fractures 2/17, Possible stroke History of Any Multi-Drug Resistant Organisms: None Reported Past Surgical History: No Surgical Hx Reported Additional Past Surgical History / Comment(s): Lung surgery, ENLARGED LYMPH NODE REMOVED BY DR. LUNDBERG Past Anesthesia/Blood Transfusion Reactions: No Reported Reaction Past Psychological History: No Psychological Hx Reported Smoking Status: Never smoker Past Alcohol Use History: None Reported Past Drug Use History: None Reported - Past Family History Mother Family Medical History: No Reported History General Exam - General Exam Comments Initial Comments: General: The patient is awake and alert, states she doesn't feel well without specific complaint. States she's dizzy and then admits to being overly anxious such as an anxiety attack. Denies 7.5 pulse 83 respiratory rate 18 pulse ox 90% room air blood pressure 127/93 Eye: Pupils are equal, round and reactive to light, extra-ocular movements are intact ; there is normal conjunctiva bilaterally. No signs of icterus. Ears, nose, mouth and throat: There are moist mucous membranes and no oral lesions. Neck: The neck is supple, there is no tenderness , no anterior cervical adenopathy, thyroid not enlarged Cardiovascular: There is a regular rate and rhythm. No murmur, rub or gallop is appreciated. Respiratory: Lungs are clear to auscultation, respirations are non-labored, breath sounds are equal. No wheezes, stridor, rales, or rhonchi. Gastrointestinal: Soft, non-distended, non-tender abdomen without masses or organomegaly noted. There is no rebound or guarding present. No CVA tenderness. Bowel sounds are unremarkable. Back: There is no tenderness to palpation in the midline. There is no obvious deformity. No rashes noted. Musculoskeletal: Normal ROM, no tenderness, There is no pedal edema. There is no calf tenderness or swelling. Sensation intact. Pulses equal bilaterally 2+. Neurological: Neurologically intact patient does have tremors the right hand but when she closes her eyes and goes through the process of stretching her arms out it slows down. She is admittedly anxious and admits to panic attacks. Skin: Skin is warm and dry and no rashes or lesions are noted. Psychiatric: Anxiety issues Limitations: no limitations Course Vital Signs 02/18/17 02/18/17 02/18/17 20:22 20:25 21:24 Temperature 97.5 F L Pulse Rate 83 80 79 Respiratory 18 18 18 Rate Blood Pressure 127/93 187/88 161/74 O2 Sat by Pulse 98 98 99 Oximetry EKG Findings - EKG Comments: EKG Findings:: EKG was done at 2028 showing sinus rhythm with occasional supraventricular complex no acute ST elevation. Rate 79 SC interval is 186 QRS 80 QT [address] Jean noted Medical Decision Making - Medical Decision Making Medical decision making the patient white count 5 hemoglobin 11 hematocrit 31. Urine is clean no signs of infection. Potassium 3.8, BUN 13 creatinine 0.75 with a GFR greater than 60. Glucose 98. Troponin less than 0.012. Chest x-ray is done AP and lateral view and reviewed by radiologist his impression is; chronic emphysematous Change without Acute Pulmonary Process. No Significant Change from Prior. As Read by Dr. Mendes Patient was given 25 mg of meclizine which she states making her feel better with less dizzy. The plan the patient will be given neck strain 12.5 mg to taking 3 times daily and she is to follow-up with family physician. Advised to change positions slowly - Lab Data Result diagrams: 02/18/17 20:35 Lab Results 02/18/17 02/18/17 02/18/17 Range/Units 20:35 20:36 20:46 WBC 5.5 (3.8-10.6) k/uL RBC 3.47 L (3.80-5.40) m/uL Hgb 11.0 L (11.4-16.0) gm/dL Hct 31.6 L (34.0-46.0) % MCV 91.1 (80.0-100.0) fL MCH 31.7 (25.0-35.0) pg MCHC 34.8 (31.0-37.0) g/dL RDW 12.8 (11.5-15.5) % Plt Count 337 (150-450) k/uL Neutrophils % 52 % Lymphocytes % 30 % Monocytes % 11 % Eosinophils % 3 % Basophils % 1 % Neutrophils # 2.9 (1.3-7.7) k/uL Lymphocytes # 1.6 (1.0-4.8) k/uL Monocytes # 0.6 (0-1.0) k/uL Eosinophils # 0.2 (0-0.7) k/uL Basophils # 0.1 (0-0.2) k/uL POC Glucose (mg/dL) 98 (75-99) mg/dL POC Glu [facility] Counselor ID Richy Oseguera Urine Color Light Yellow Urine Appearance Clear (Clear) Urine pH 7.0 (5.0-8.0) Ur Specific [place] 1.007 (1.001-1.035) Urine Protein Negative (Negative) Urine Glucose (UA) Negative (Negative) Urine Ketones Negative (Negative) Urine Blood Small H (Negative) Urine Nitrite Negative (Negative) Urine Bilirubin Negative (Negative) Urine Urobilinogen <2.0 (<2.0) mg/dL Ur Leukocyte Esterase Negative (Negative) Urine RBC 3 (0-5) /hpf Urine WBC <1 (0-5) /hpf Disposition Clinical Impression: Dizziness, nonspecific Disposition: HOME SELF-CARE Condition: Fair Instructions: Vertigo (ED), Lightheadedness (ED) Additional Instructions: Take meclizine as directed change positions slowly. Follow-up with your family physician return emergency room as needed Prescriptions: Meclizine [Antivert] 12.5 mg PO TID #30 tab Referrals: Alexis Kramer Jr, DO [Primary Care Provider] - 1-2 days Time of Disposition: 21:59
[2017-02-18 21:06] LABS: Appearance,Urine Clear (Clear); Bilirubin,Urine Negative (Negative); Glucose,Urine (UA) Negative (Negative); Ketones,Urine Negative (Negative); Leukocyte Esterase,Urine Negative (Negative); Nitrite,Urine Negative (Negative); Particle Count 217; Protein,Urine Negative (Negative); RBC,Urine 3 /hpf (0-5); Specific Gravity,Urine 1.007 (1.001-1.035); UA Billing (MACRO vs. MICRO) MICRO; Urobilinogen,Urine <2.0 mg/dL (<2.0); WBC,Urine <1 /hpf (0-5)
[2017-02-18 21:09] LABS: Basophils # (A) 0.1 k/uL (0-0.2); Basophils % (A) 1 %; CHCM 35.3; Eosinophils # (A) 0.2 k/uL (0-0.7); Eosinophils % (A) 3 %; HCT 31.6 % (34.0-46.0); HDW 2.38; Luc % (Auto) 4; Lymphocytes # (A) 1.6 k/uL (1.0-4.8); Lymphocytes % (A) 30 %; MCH 31.7 pg (25.0-35.0); MCHC 34.8 g/dL (31.0-37.0); MCV 91.1 fL (80.0-100.0); Mean Platelet Volume 6.5; Monocytes # (A) 0.6 k/uL (0-1.0); Monocytes % (A) 11 %; Neutrophils # (A) 2.9 k/uL (1.3-7.7); Neutrophils % (A) 52 %; RBC 3.47 m/uL (3.80-5.40); RDW 12.8 % (11.5-15.5); WBC 5.5 k/uL (3.8-10.6); WBC (Perox) 5.48
[2017-02-18 21:20] LABS: ALT 28 U/L (9-52); AST 20 U/L (14-36); Alkaline Phosphatase 85 U/L (38-126); Anion Gap 10 mmol/L; Blood Urea Nitrogen 13 mg/dL (7-17); Calcium 8.7 mg/dL (8.4-10.2); Carbon Dioxide 25 mmol/L (22-30); Chloride 104 mmol/L (98-107); Glucose 86 mg/dL (74-99); Non-African American GFR(MDRD) >60 (>60 ml/min/1.73 sqM); Potassium 3.8 mmol/L (3.5-5.1); Sodium 139 mmol/L (137-145); Total Bilirubin 0.2 mg/dL (0.2-1.3); Total Protein 6.5 g/dL (6.3-8.2)
--- NOTE | 2017-02-18 21:23 | XR ---
EXAMINATION TYPE: XR chest 2V DATE OF EXAM: 02/18/2017 COMPARISON: Chest x-ray January 18, 2017. HISTORY: COPD with weakness TECHNIQUE: Frontal and lateral views of the chest are obtained. FINDINGS: There is no focal air space opacity, pleural effusion, or pneumothorax seen. Underlying em physematous change is felt present. The cardiac silhouette size is within normal limits. The osseo us structures are somewhat demineralized.. IMPRESSION: Chronic emphysematous change without acute pulmonary process. No significant change from prior.
[2017-02-18 21:32] LABS: Creatine Kinase 112 U/L (30-135)
[2017-02-18 21:44] LABS: Troponin I <0.012 ng/mL (0.000-0.034)
[2017-02-18 22:19] VITALS: BP 162/78; PULSE 73; TEMP 97.1
== END 2017-02-18 22:30 | disposition home or self-care (01) ==
LOC: SUPCPDRO 20:17 → EC 20:17
DX: R42 Dizziness and giddiness (principal); R53.1 Weakness; J43.9 Emphysema, unspecified; F41.0 Panic disorder [episodic paroxysmal anxiety]; R25.1 Tremor, unspecified; G40.909 Epilepsy, unspecified, not intractable, without status epilepticus; Z79.899 Other long term (current) drug therapy; Z98.890 Other specified postprocedural states
CPT/HCPCS: 36415; 71020; 80053; 81001; 82550; 82553; 84443; 84484; 85025; 87086; 93005; 96360; 99285

== ENCOUNTER 2017-03-31 13:56 | Emergency (ER) | payer OTHER ==
[2017-03-31] MEDS ORDERED: predniSONE 50 MG TAB PO STA (14:36)
[2017-03-31] MEDS ORDERED: ALBUTEROL NEBULIZED 2.5 MG/3 ML INHALATION STA (14:36)
[2017-03-31] MEDS ORDERED: IBUPROFEN 400 MG TAB PO STA (14:36)
[2017-03-31] MEDS ORDERED: IPRATROPIUM 0.5 MG/2.5 ML NEBU INHALATION STA (14:36)
[2017-03-31] MEDS ORDERED: MORPHINE SULFATE 4 MG/ML SYRINGE IVP STA (16:00)
--- NOTE | 2017-03-31 16:13 | XR ---
EXAMINATION TYPE: XR ribs bilat w pa chest xray DATE OF EXAM: 03/31/2017 COMPARISON: 02/18/2017 HISTORY: Shortness of breath and bilateral rib pain TECHNIQUE: Frontal and lateral views of bilateral ribs as well as frontal anteroposterior chest radio graph are obtained. FINDINGS: Chronic appearing deformities are seen of ribs 4, 5, and 6 on the right at the lateral adryan ins. No other deformities are seen of any of the bilateral ribs. There is no focal consolidation, ple ural effusion or pneumothorax. Cardia mediastinal silhouette is within normal limits. IMPRESSION: Chronic appearing fracture deformities of ribs 4, 5, and 6 on the right at the lateral ma rgins. No acute cardiopulmonary process.
--- NOTE | 2017-03-31 16:38 | ED ---
Chest Pain HPI - General Chief Complaint: Chest Pain Stated Complaint: Chest Pain, [place] Time Seen by Provider: 03/31/17 14:04 Source: patient, RN notes reviewed, old records reviewed Mode of arrival: EMS Limitations: no limitations - History of Present Illness Initial Comments: 62-year-old female presents with chest pain. This is both on the left and right side of her chest. His been present for approximately 6 months. Patient does have remote history of rib fracture which was secondary to cough from pneumonia. She denies any fever or chills. Has had a cough since that time. She does have a history of COPD. Additional past medical history of seizure disorder currently on Keppra. No history of coronary artery disease. Patient' s pain has been treated with [id number] medications. She is reporting pain on both the right and left sides. Denies any radiating symptoms. Denies any nausea vomiting or diaphoresis. - Related Data Home Medications Medication Instructions Recorded Confirmed levETIRAcetam [Keppra] 1,000 mg PO BID 12/19/13 03/31/17 carBAMazepine [Epitol] 200 mg PO BID 11/29/16 03/31/17 Albuterol Inhaler [Ventolin Hfa 1 - 2 puff INHALATION RT-Q6H PRN 01/03/17 Inhaler] ALPRAZolam [Xanax] 0.25 mg PO TID PRN 01/18/17 03/31/17 Previous Rx's Medication Instructions Recorded HYDROcodone/APAP 5-325MG [[place] 1 tab PO Q6HR PRN #12 tab 03/31/17 5-325] Ibuprofen [Motrin] 600 mg PO Q8HR PRN #24 tab 03/31/17 Allergies Allergy/AdvReac Type Severity Reaction Status Date / Time No Known Allergies Allergy Verified 03/31/17 14:21 Review of Systems ROS Statement: Those systems with pertinent positive or pertinent negative responses have been documented in the HPI. ROS Other: All systems not noted in ROS Statement are negative. EKG Findings - EKG Comments: EKG Findings:: EKG shows normal sinus rhythm, ventricular rate of 76, CA interval 170, QRS duration 76, QTC 405, no signs of ischemia Past Medical History Past Medical History: COPD, Pneumonia, Seizure Disorder Additional Past Medical History / Comment(s): Anemia, pneumonia with rib fractures 09/23, Possible stroke History of Any Multi-Drug Resistant Organisms: None Reported Past Surgical History: No Surgical Hx Reported Additional Past Surgical History / Comment(s): Lung surgery, ENLARGED LYMPH NODE REMOVED BY DR. LUNDBERG Past Anesthesia/Blood Transfusion Reactions: No Reported Reaction Past Psychological History: Anxiety Smoking Status: Never smoker Past Alcohol Use History: None Reported Past Drug Use History: None Reported - Past Family History Mother Family Medical History: No Reported History General Exam Limitations: no limitations General appearance: alert, in no apparent distress Head exam: Present: atraumatic, normocephalic Eye exam: Present: normal appearance, PERRL ENT exam: Present: normal exam, mucous membranes moist Neck exam: Present: normal inspection. Absent: tenderness, meningismus Respiratory exam: Present: chest wall tenderness (Significant chest wall tenderness on the right lateral ribs as well as the left anterior ribs), other ( Bronchospastic cough). Absent: respiratory distress Cardiovascular Exam: Present: regular rate, normal rhythm GI/Abdominal exam: Present: soft. Absent: distended, tenderness Extremities exam: Present: normal inspection, normal capillary refill. Absent: pedal edema, calf tenderness Back exam: Present: normal inspection Neurological exam: Present: alert, oriented X3, CN II-XII intact. Absent: motor sensory deficit Psychiatric exam: Present: normal affect, normal mood Skin exam: Present: warm, dry. Absent: cyanosis, diaphoretic Course Vital Signs 03/31/17 03/31/17 03/31/17 14:03 15:01 15:32 Temperature 98.8 F Pulse Rate 82 78 81 Respiratory 17 Rate Blood Pressure 160/67 O2 Sat by Pulse 97 Oximetry 03/31/17 15:56 Temperature Pulse Rate 77 Respiratory 18 Rate Blood Pressure 165/74 O2 Sat by Pulse 100 Oximetry Chest Pain MDM - [facility] 62-year-old female presenting with bilateral chest pain. Patient has had these symptoms for the past 6 months. She does have a history of rib fracture which was secondary to coughing from a pneumonia. Patient has been taking Tylenol with minimal relief. She most recently took Tylenol at 1 PM today. She has past medical history of COPD and on examination shows have a bronchospastic cough, no rhonchi, no wheezing good air entry. She does have significant tenderness to palpation of both the right lateral ribs in the anterior left ribs. There is no radiating H Paula pain, EKG is nonischemic. Chest x-ray does show rib fractures on the fourth fifth and sixth right ribs. This is consistent with her pain completely. She is given a prescription for Motrin and [place]. She'll follow up with her primary care physician. She is also given an incentive spirometer. Diagnosis: Rib fractures, COPD Disposition Clinical Impression: Fracture, rib Disposition: HOME SELF-CARE Condition: Good Instructions: Rib Fracture (ED) Prescriptions: HYDROcodone/APAP 5-325MG [[place] 5-325] 1 tab PO Q6HR PRN #12 tab PRN Reason: Pain Ibuprofen [Motrin] 600 mg PO Q8HR PRN #24 tab PRN Reason: Pain Referrals: Alexis Kramer Jr, DO [Primary Care Provider] - 1-2 days Time of Disposition: 16:37
[2017-03-31 17:36] VITALS: BP 166/81; PULSE 79; RESP 17; TEMP 98.5
== END 2017-03-31 17:36 | disposition home or self-care (01) ==
LOC: EC 13:56
DX: S22.41XD Multiple fractures of ribs, right side, subsequent encounter for fracture with routine healing (principal); J44.9 Chronic obstructive pulmonary disease, unspecified; G40.909 Epilepsy, unspecified, not intractable, without status epilepticus; Z79.899 Other long term (current) drug therapy; Z98.890 Other specified postprocedural states; X58.XXXD Exposure to other specified factors, subsequent encounter
CPT/HCPCS: 99285; 96374; 94640; 93005; 71111; J2270; J7512

== ENCOUNTER 2017-04-25 20:19 | Observation (INO) | payer OTHER ==
--- NOTE | 2017-04-25 21:03 | XR ---
EXAMINATION TYPE: XR chest 2V DATE OF EXAM: 04/25/2017 COMPARISON: 02/18/2017 HISTORY: Shortness of breath TECHNIQUE: Frontal and lateral views of the chest are obtained. FINDINGS: Scattered senescent parenchymal changes noted. Hyperinflation compatible with COPD. No evidence for infiltrate. No evidence for atelectasis. Heart size is stable. Mediastinal structures are stable and grossly unremarkable. No evidence for hilar prominence. Degenerative changes dorsal spine. IMPRESSION: 1. No evidence for acute pulmonary disease.
[2017-04-25 21:21] LABS: Basophils % (A) 1 %; CH 32.8; Eosinophils # (A) 0.1 k/uL (0-0.7); Eosinophils % (A) 2 %; HCT 32.1 % (34.0-46.0); HDW 2.33; HGB 10.9 gm/dL (11.4-16.0); Luc # (Auto) 0.12; Luc % (Auto) 3; Lymphocytes # (A) 1.6 k/uL (1.0-4.8); Lymphocytes % (A) 37 %; MCH 31.8 pg (25.0-35.0); MCHC 33.8 g/dL (31.0-37.0); MCV 94.1 fL (80.0-100.0); Mean Platelet Volume 6.9; Monocytes # (A) 0.5 k/uL (0-1.0); Monocytes % (A) 12 %; Neutrophils # (A) 1.9 k/uL (1.3-7.7); Neutrophils % (A) 45 %; RBC 3.41 m/uL (3.80-5.40); RDW 12.8 % (11.5-15.5); WBC 4.3 k/uL (3.8-10.6); WBC (Perox) 4.63
[2017-04-25 21:29] LABS: ALT 25 U/L (9-52); AST 21 U/L (14-36); Alkaline Phosphatase 81 U/L (38-126); Anion Gap 9 mmol/L; Blood Urea Nitrogen 8 mg/dL (7-17); Calcium 8.5 mg/dL (8.4-10.2); Carbon Dioxide 24 mmol/L (22-30); Chloride 103 mmol/L (98-107); Glucose 87 mg/dL (74-99); Non-African American GFR(MDRD) >60 (>60 ml/min/1.73 sqM); Sodium 136 mmol/L (137-145); Total Bilirubin 0.3 mg/dL (0.2-1.3); Total Protein 6.8 g/dL (6.3-8.2)
[2017-04-25 21:41] LABS: Partial Thromboplastin Time 22.8 sec (22.0-30.0); Prothrombin Time 10.4 sec (9.0-12.0)
[2017-04-25 21:47] LABS: Creatine Kinase 74 U/L (30-135)
[2017-04-25 21:58] LABS: Creatine Kinase MB 0.7 ng/mL (0.0-2.4); Troponin I <0.012 ng/mL (0.000-0.034)
--- NOTE | 2017-04-25 22:07 | ED ---
General Adult HPI - General Chief complaint: Shortness of Breath Stated complaint: EMERSON Time Seen by Provider: 04/25/17 21:25 Source: patient, EMS, RN notes reviewed, old records reviewed Mode of arrival: EMS Limitations: no limitations - History of Present Illness Initial comments: This is a 62-year-old female year for urinary cystoscopy chest pain. Patient said she feels like she has broken ribs. Patient's been coughing and having shortness of breath. States her cough is severe which is causing her broken ribs. Recent hospitalization about a month ago for pneumonia. Patient denies fever, mild shortness of breath. Mainly complaining of chest pain worse with a deep breath - Related Data Home Medications Medication Instructions Recorded Confirmed levETIRAcetam [Keppra] 1,000 mg PO BID 12/19/13 04/25/17 carBAMazepine [Epitol] 200 mg PO BID 11/29/16 04/25/17 ALPRAZolam [Xanax] 0.25 mg PO TID PRN 01/18/17 04/25/17 Acetaminophen [Tylenol] 1,000 mg PO BID PRN 04/25/17 04/25/17 HYDROcodone/APAP 5-325MG [[place] 1 tab PO ONCE PRN 04/25/17 04/25/17 5-325] Previous Rx's Medication Instructions Recorded Ibuprofen [Motrin] 600 mg PO Q8HR PRN #24 tab 03/31/17 Allergies Allergy/AdvReac Type Severity Reaction Status Date / Time No Known Allergies Allergy Verified 04/25/17 20:40 Review of Systems ROS Statement: Those systems with pertinent positive or pertinent negative responses have been documented in the HPI. ROS Other: All systems not noted in ROS Statement are negative. Past Medical History Past Medical History: COPD, Pneumonia, Seizure Disorder Additional Past Medical History / Comment(s): Anemia, pneumonia with rib fractures 09/23, Possible stroke History of Any Multi-Drug Resistant Organisms: None Reported Past Surgical History: No Surgical Hx Reported Additional Past Surgical History / Comment(s): Lung surgery, ENLARGED LYMPH NODE REMOVED BY DR. LUNDBERG Past Anesthesia/Blood Transfusion Reactions: No Reported Reaction Past Psychological History: Anxiety Smoking Status: Never smoker Past Alcohol Use History: None Reported Past Drug Use History: None Reported - Past Family History Mother Family Medical History: No Reported History General Exam - General Exam Comments Initial Comments: Reported reproducible anterior chest pain Limitations: no limitations General appearance: alert, in no apparent distress Head exam: Present: atraumatic, normocephalic, normal inspection Eye exam: Present: normal appearance, PERRL, EOMI. Absent: scleral icterus, conjunctival injection, periorbital swelling ENT exam: Present: normal exam, mucous membranes moist Neck exam: Present: normal inspection. Absent: tenderness, meningismus, lymphadenopathy Respiratory exam: Present: normal lung sounds bilaterally. Absent: respiratory distress, wheezes, rales, rhonchi, stridor Cardiovascular Exam: Present: regular rate, normal rhythm, normal heart sounds. Absent: systolic murmur, diastolic murmur, rubs, gallop, clicks GI/Abdominal exam: Present: soft, normal bowel sounds. Absent: distended, tenderness, guarding, rebound, rigid Extremities exam: Present: normal inspection, full ROM, normal capillary refill. Absent: tenderness, pedal edema, joint swelling, calf tenderness Back exam: Present: normal inspection Neurological exam: Present: alert, oriented X3, CN II-XII intact Psychiatric exam: Present: normal affect, normal mood Skin exam: Present: warm, dry, intact, normal color. Absent: rash Course Vital Signs 04/25/17 20:20 Temperature 98.0 F Pulse Rate 77 Respiratory 18 Rate Blood Pressure 175/92 O2 Sat by Pulse 98 Oximetry - Reevaluation(s) Reevaluation #1: 04/25/17 23:07 Medical records are reviewed Reevaluation #2: 04/25/17 23:07 A chest pain at this time is control EKG Findings - EKG Comments: EKG Findings:: EKG shows normal sinus rhythm rate of 74, AK 190, QRS 70, QTc 412 Medical Decision Making - Medical Decision Making 7-year-old female DF prevention chest pain shows of breath, patient be admitted for cardiac observation, monitoring of cardiac enzymes cardiopulmonary status - Lab Data Result diagrams: 04/25/17 20:25 04/25/17 20:25 Lab Results 04/25/17 04/25/17 04/25/17 Range/Units 20:25 20:25 20:25 WBC 4.3 (3.8-10.6) k/uL RBC 3.41 L (3.80-5.40) m/uL Hgb 10.9 L (11.4-16.0) gm/dL Hct 32.1 L (34.0-46.0) % MCV 94.1 (80.0-100.0) fL MCH 31.8 (25.0-35.0) pg MCHC 33.8 (31.0-37.0) g/dL RDW 12.8 (11.5-15.5) % Plt Count 344 (150-450) k/uL Neutrophils % 45 % Lymphocytes % 37 % Monocytes % 12 % Eosinophils % 2 % Basophils % 1 % Neutrophils # 1.9 (1.3-7.7) k/uL Lymphocytes # 1.6 (1.0-4.8) k/uL Monocytes # 0.5 (0-1.0) k/uL Eosinophils # 0.1 (0-0.7) k/uL Basophils # 0.0 (0-0.2) k/uL PT (9.0-12.0) sec INR (<1.2) APTT (22.0-30.0) sec D-Dimer (<0.60) mg/L FEU Sodium 136 L (137-145) mmol/L Potassium 4.0 (3.5-5.1) mmol/L Chloride 103 (98-107) mmol/L Carbon Dioxide 24 (22-30) mmol/L Anion Gap 9 mmol/L BUN 8 (7-17) mg/dL Creatinine 0.74 (0.52-1.04) mg/dL Est GFR (MDRD) Af Amer >60 (>60 ml/min/1.73 sqM) Est GFR (MDRD) Non-Af >60 (>60 ml/min/1.73 sqM) Glucose 87 (74-99) mg/dL Calcium 8.5 (8.4-10.2) mg/dL Magnesium 2.0 (1.6-2.3) mg/dL Total Bilirubin 0.3 (0.2-1.3) mg/dL AST 21 (14-36) U/L ALT 25 (9-52) U/L Alkaline Phosphatase 81 (38-126) U/L Total Creatine Kinase 74 (30-135) U/L CK-MB (CK-2) 0.7 (0.0-2.4) ng/mL CK-MB (CK-2) Rel Index 0.9 Troponin I <0.012 (0.000-0.034) ng/mL NT-Pro-B Natriuret Pep pg/mL Total Protein 6.8 (6.3-8.2) g/dL Albumin 4.0 (3.5-5.0) g/dL 04/25/17 04/25/17 Range/Units 20:25 20:25 WBC (3.8-10.6) k/uL RBC (3.80-5.40) m/uL Hgb (11.4-16.0) gm/dL Hct (34.0-46.0) % MCV (80.0-100.0) fL MCH (25.0-35.0) pg MCHC (31.0-37.0) g/dL RDW (11.5-15.5) % Plt Count (150-450) k/uL Neutrophils % % Lymphocytes % % Monocytes % % Eosinophils % % Basophils % % Neutrophils # (1.3-7.7) k/uL Lymphocytes # (1.0-4.8) k/uL Monocytes # (0-1.0) k/uL Eosinophils # (0-0.7) k/uL Basophils # (0-0.2) k/uL PT 10.4 (9.0-12.0) sec INR 1.0 (<1.2) APTT 22.8 (22.0-30.0) sec D-Dimer 0.21 (<0.60) mg/L FEU Sodium (137-145) mmol/L Potassium (3.5-5.1) mmol/L Chloride (98-107) mmol/L Carbon Dioxide (22-30) mmol/L Anion Gap mmol/L BUN (7-17) mg/dL Creatinine (0.52-1.04) mg/dL Est GFR (MDRD) Af Amer (>60 ml/min/1.73 sqM) Est GFR (MDRD) Non-Af (>60 ml/min/1.73 sqM) Glucose (74-99) mg/dL Calcium (8.4-10.2) mg/dL Magnesium (1.6-2.3) mg/dL Total Bilirubin (0.2-1.3) mg/dL AST (14-36) U/L ALT (9-52) U/L Alkaline Phosphatase (38-126) U/L Total Creatine Kinase (30-135) U/L CK-MB (CK-2) (0.0-2.4) ng/mL CK-MB (CK-2) Rel Index Troponin I (0.000-0.034) ng/mL NT-Pro-B Natriuret Pep 253 pg/mL Total Protein (6.3-8.2) g/dL Albumin (3.5-5.0) g/dL - Radiology Data Radiology results: report reviewed (Chest x-ray negative for acute disease, CT chest negative for acute disease), image reviewed Critical Care Time Critical Care Time: Yes Total Critical Care Time: 31 Disposition Clinical Impression: Weakness, Chest pain Disposition: ADMITTED IP TO THIS [facility] Condition: Undetermined Referrals: Alexis Kramer Jr, [Primary Care Provider] - 1-2 days
[2017-04-25] MEDS ORDERED: KETOROLAC 30 MG/ML 1 ML VIAL IVP STA (22:21)
[2017-04-25] MEDS ORDERED: MORPHINE SULFATE 4 MG/ML SYRINGE IVP STA (22:21)
[2017-04-25] MEDS ORDERED: RX INFO: IV CONTRAST WAS GIVEN 1 EACH MISC MISCELLANE PRN (22:21)
[2017-04-25] MEDS ORDERED: HEPARIN SODIUM,PORCINE 5,000 UNIT/ML 1 ML VIAL IV ONE (23:10)
[2017-04-25] MEDS ORDERED: HEPARIN SODIUM,PORCINE 5,000 UNIT/ML 1 ML VIAL IV PRN (23:10)
[2017-04-25] MEDS ORDERED: MORPHINE SULFATE 4 MG/ML SYRINGE IV PRN (23:10)
[2017-04-25] MEDS ORDERED: HEPARIN SODIUM,PORCINE/D5W PMX 25,000 UNIT in DEXTROSE/WATER 1 500ML.BAG IV SCH (23:15)
--- NOTE | 2017-04-25 23:30 | CT ---
EXAM: CT Angiography Chest With Intravenous Contrast CLINICAL HISTORY: Generalized chest pain. TECHNIQUE: Axial computed tomographic angiography images of the chest with intravenous contrast using pulmonary embolism protocol. DLP is 150.20 mGy-cm. This CT exam was performed using one or more of the following dose reduction techniques: automated exposure control, adjustment of the mA and/or kV according to patient size, and/or use of iterative reconstruction technique. MIP reconstructed images were created and reviewed. COMPARISON: 11/30/2016 FINDINGS: Pulmonary arteries: Unremarkable. No pulmonary embolism. Aorta: No acute findings. No thoracic aortic aneurysm. Lungs: Linear atelectasis versus scarring involving the lingula, as seen on prior study. No mass. Pleural space: Unremarkable. No significant effusion. No pneumothorax. Heart: Unremarkable. No cardiomegaly. No significant pericardial effusion. No evidence of RV dysfunction. Bones/joints: No acute fracture. No significant interval change. Soft tissues: Unchanged. Lymph nodes: Stable mildly prominent mediastinal and bilateral hilar lymph nodes, measuring up to 1 cm in short axis, of unknown significance. IMPRESSION: No evidence of PE. Stable mildly prominent mediastinal lymph and bilateral hilar lymph nodes, of unknown significance. Correlate clinically. [employer] 04/25/17 23:21 Call Doctor Regarding Pulmonary Embolism, called Dr. Vicente on 04/25 23:20 (-04:00)
[2017-04-26] MEDS ORDERED: methylPREDNISolone SOD SUCCI 125 MG/2 ML VIAL IV STA (02:30)
[2017-04-26] MEDS ORDERED: IPRATROPIUM-ALBUTEROL 3 ML NEB INHALATION STA (02:30)
[2017-04-26] MEDS ORDERED: IPRATROPIUM-ALBUTEROL 3 ML NEB INHALATION PRN (02:49)
[2017-04-26 03:16] LABS: Creatine Kinase 66 U/L (30-135)
[2017-04-26 03:18] LABS: Mean Platelet Volume 6.5
[2017-04-26 03:29] LABS: Creatine Kinase MB 0.6 ng/mL (0.0-2.4); Troponin I <0.012 ng/mL (0.000-0.034)
[2017-04-26 03:37] VITALS: BMI 23.1
[2017-04-26 04:00] LABS: Cholesterol 175 mg/dL (<200); HDL Cholesterol 87 mg/dL (40-60)
[2017-04-26] MEDS ORDERED: IPRATROPIUM-ALBUTEROL 3 ML NEB INHALATION SCH (04:00)
[2017-04-26] MEDS ORDERED: RX INFO: IV CONTRAST WAS GIVEN 1 EACH MISC MISCELLANE PRN ×3 (08:16→16:07)
[2017-04-26] MEDS ORDERED: ONDANSETRON 4 MG/2 ML VIAL IVP PRN (08:18)
[2017-04-26 08:28] LABS: Creatine Kinase 65 U/L (30-135)
[2017-04-26 08:40] LABS: Creatine Kinase MB 0.6 ng/mL (0.0-2.4); Troponin I <0.012 ng/mL (0.000-0.034)
[2017-04-26] MEDS: IPRATROPIUM-ALBUTEROL 3 ML NEB INHALATION SCH ×4 (08:41→20:03)
[2017-04-26] MEDS ORDERED: HYDROcodone/APAP 5-325MG 1 EACH TAB PO PRN (08:43)
[2017-04-26] MEDS: ASPIRIN 325 MG TAB PO SCH (08:43)
--- NOTE | 2017-04-26 09:15 | P.CRDCN ---
History of Present Illness Consult date: 04/26/17 Chief complaint: Chest discomfort History of present illness: This is a pleasant 62-year-old female patient with no significant past medical history or cardiac history who presented to the hospital complaining of chest discomfort. The patient was admitted to the hospital in September 2016 with chest discomfort and at that point she underwent a stress test and echocardiogram and both came in to be unremarkable. Sometimes before that she was diagnosed with a pneumonia and she was experiencing severe cough where she fractured her ribs. Since then the patient continues to have chest discomfort, across the chest, as a sharp/pressure kind of discomfort, with some radiation to the back. The patient stated that his discomfort is worse with cough and deep breath. Its also reproducible on physical examination. The EKG showed sinus rhythm without any ischemic changes. The cardiac enzymes were checked and came in to be unremarkable. Past Medical History Past Medical History: COPD, CVA/TIA, Pneumonia, Seizure Disorder Additional Past Medical History / Comment(s): Last seizure 6 years ago, Anemia, pneumonia with rib fractures 09/23, TIA (01/2017) History of Any Multi-Drug Resistant Organisms: None Reported Past Surgical History: No Surgical Hx Reported Additional Past Surgical History / Comment(s): Lung surgery, ENLARGED LYMPH NODE REMOVED BY DR. LUNDBERG Past Anesthesia/Blood Transfusion Reactions: No Reported Reaction Past Psychological History: Anxiety Smoking Status: Never smoker Past Alcohol Use History: None Reported Past Drug Use History: None Reported - Past Family History Mother Family Medical History: No Reported History Medications and Allergies Home Medications Medication Instructions Recorded Confirmed Type levETIRAcetam [Keppra] 1,000 mg PO BID 12/19/13 04/26/17 History carBAMazepine [Epitol] 200 mg PO BID 11/29/16 04/26/17 History ALPRAZolam [Xanax] 0.25 mg PO TID PRN 01/18/17 04/26/17 History Ibuprofen [Motrin] 600 mg PO Q8HR PRN #24 tab 03/31/17 04/26/17 Rx Acetaminophen [Tylenol] 1,000 mg PO BID PRN 04/25/17 04/26/17 History HYDROcodone/APAP 5-325MG [[place] 1 tab PO ONCE PRN 04/25/17 04/26/17 History 5-325] Allergies Allergy/AdvReac Type Severity Reaction Status Date / Time No Known Allergies Allergy Verified 04/26/17 03:32 Physical Exam Vitals: Vital Signs Temp Pulse Pulse Resp BP BP Pulse Ox 04/26/17 08:53 69 04/26/17 08:41 66 98 04/26/17 07:52 98.1 F 79 20 143/79 100 04/26/17 04:00 97.0 F L 86 17 161/78 100 04/26/17 03:15 63 04/26/17 03:07 61 04/26/17 03:01 59 L 18 167/84 100 04/26/17 01:09 97.6 F 71 16 167/84 99 04/26/17 00:00 64 18 170/83 100 04/25/17 23:10 100 04/25/17 23:00 62 18 182/80 100 04/25/17 22:00 62 18 167/85 100 04/25/17 21:25 98.3 F 68 18 131/71 100 04/25/17 20:20 98.0 F 77 18 175/92 98 Intake and Output 04/25/17 04/26/17 04/26/17 22:59 06:59 14:59 Intake Total 109.064 120 Balance 109.064 120 Intake: IV 27 Heparin Sodium,Porcine/ 27 D5w Pmx 25,000 unit In Dextrose/Water 1 500ml. bag @ 12 UNITS/KG/HR 13. 49 mls/hr IV .Q24H JESSICA Rx #:[id number] Intake, IV Titration 82.064 Amount Heparin Sodium,Porcine/ 82.064 D5w Pmx 25,000 unit In Dextrose/Water 1 500ml. bag @ 12 UNITS/KG/HR 13. 49 mls/hr IV .Q24H JESSICA Rx #:[id number] Oral 120 Other: Voiding Method Toilet # Voids 1 2 Weight 56.245 kg 57.2 kg - Constitutional General appearance: no acute distress - Respiratory Respiratory: bilateral: CTA - Cardiovascular Rhythm: regular Heart sounds: normal: S1, S2 Results 04/26/17 02:45 04/25/17 20:25 Cardiac Enzymes 04/25/17 04/25/17 04/26/17 Range/Units 20:25 20:25 02:45 AST 21 (14-36) U/L CK-MB (CK-2) 0.7 0.6 (0.0-2.4) ng/mL Troponin I <0.012 <0.012 (0.000-0.034) ng/mL 04/26/17 Range/Units 07:42 AST (14-36) U/L CK-MB (CK-2) 0.6 (0.0-2.4) ng/mL Troponin I <0.012 (0.000-0.034) ng/mL Coagulation 04/25/17 04/26/17 Range/Units 20:25 05:58 PT 10.4 (9.0-12.0) sec APTT 22.8 56.7 H (22.0-30.0) sec Lipids 04/26/17 Range/Units 02:45 Triglycerides 43 (<150) mg/dL Cholesterol 175 (<200) mg/dL HDL Cholesterol 87 H (40-60) mg/dL CBC 04/25/17 04/26/17 Range/Units 20:25 02:45 WBC 4.3 (3.8-10.6) k/uL RBC 3.41 L (3.80-5.40) m/uL Hgb 10.9 L (11.4-16.0) gm/dL Hct 32.1 L (34.0-46.0) % Plt Count 344 357 (150-450) k/uL Comprehensive Metabolic Panel 04/25/17 Range/Units 20:25 Sodium 136 L (137-145) mmol/L Potassium 4.0 (3.5-5.1) mmol/L Chloride 103 (98-107) mmol/L Carbon Dioxide 24 (22-30) mmol/L BUN 8 (7-17) mg/dL Creatinine 0.74 (0.52-1.04) mg/dL Glucose 87 (74-99) mg/dL Calcium 8.5 (8.4-10.2) mg/dL AST 21 (14-36) U/L ALT 25 (9-52) U/L Alkaline Phosphatase 81 (38-126) U/L Total Protein 6.8 (6.3-8.2) g/dL Albumin 4.0 (3.5-5.0) g/dL Current Medications Generic Name Dose Route Start Last Admin Trade Name Freq PRN Reason Stop Dose Admin Acetaminophen 1,000 mg 04/26/17 08:43 Tylenol Tab PO BID PRN Mild Pain Hydrocodone Bitart/Acetaminophen 1 each 04/26/17 08:43 [place] 5-325 PO 05/26/17 08:44 ONCE PRN Moderate Pain Albuterol/Ipratropium 3 ml 04/26/17 08:00 04/26/17 08:41 Duoneb 0.5 Mg-3 Mg/3 Ml Soln INHALATION 3 ml RT-QID JESSICA Administration Albuterol/Ipratropium 3 ml 04/26/17 02:49 Duoneb 0.5 Mg-3 Mg/3 Ml Soln INHALATION RT-Q2H PRN Shortness Of Breath Or Wheezing Aspirin 325 mg 04/26/17 09:00 04/26/17 08:43 Aspirin PO 325 mg DAILY JESSICA Administration Carbamazepine 200 mg 04/26/17 09:00 Tegretol PO BID [facility] Heparin Sodium (Porcine) 0 unit 04/25/17 23:10 Heparin IV Q6HR PRN Low PTT Protocol Heparin Sodium/Dextrose 25,000 500 mls @ 13.49 mls/hr 04/25/17 23:15 06:52 unit/ IV Solution IV 12 units/kg/hr .Q24H JESSICA 13.49 mls/hr Protocol Titration 12 UNITS/KG/HR Levetiracetam 1,000 mg 04/26/17 09:00 Keppra PO BID [facility] Methylprednisolone Sodium Succinate 60 mg 04/26/17 12:00 Solu-Medrol IV Q6HR [facility] Miscellaneous Information 1 each 04/25/17 22:21 04/25/17 22:44 Rx Info: Iv Contrast Was Given MISCELLANE 04/27/17 22:21 1 each DAILY PRN Administration Per Protocol Miscellaneous Information 1 each 04/26/17 08:16 Rx Info: Iv Contrast Was Given MISCELLANE 04/28/17 08:18 DAILY PRN Per Protocol Morphine Sulfate 4 mg 04/25/17 23:10 Morphine Sulfate (Inj) IV Q5M PRN Chest Pain Nitroglycerin 0.4 mg 04/25/17 23:10 Nitrostat SUBLINGUAL Q5M PRN Chest Pain Ondansetron HCl 4 mg 04/26/17 08:18 04/26/17 08:41 Zofran IVP 4 mg Q6HR PRN Administration Nausea And Vomiting Intake and Output 04/25/17 04/26/17 04/26/17 22:59 06:59 14:59 Intake Total 109.064 120 Balance 109.064 120 Intake: IV 27 Heparin Sodium,Porcine/ 27 D5w Pmx 25,000 unit In Dextrose/Water 1 500ml. bag @ 12 UNITS/KG/HR 13. 49 mls/hr IV .Q24H JESSICA Rx #:[id number] Intake, IV Titration 82.064 Amount Heparin Sodium,Porcine/ 82.064 D5w Pmx 25,000 unit In Dextrose/Water 1 500ml. bag @ 12 UNITS/KG/HR 13. 49 mls/hr IV .Q24H JESSICA Rx #:[id number] Oral 120 Other: Voiding Method Toilet # Voids 1 2 Weight 56.245 kg 57.2 kg 04/26/17 02:45 04/25/17 20:25 Assessment and Plan Plan: This is a pleasant 62-year-old female patient who was admitted to the hospital was atypical and pleuritic chest discomfort. She underwent a stress test and echocardiogram earlier this year and they came in to be unremarkable. At this point, I would recommend no further stress testing. I would obtain an echocardiogram to assess for pericardial effusion. Continue following up with her
--- NOTE | 2017-04-26 09:35 | CT ---
EXAMINATION TYPE: CT brain wo con DATE OF EXAM: 04/26/2017 COMPARISON: 01/18/2017 HISTORY: mental status change. CT DLP: 995.[address] of the brain was performed. The ventricles, basal cisterns and sulci overlying the cerebral convexities demonstrate mild enlargem ent. There is no evidence for intracranial hemorrhage or sulcal effacement. There is decreased attenuation about the periventricular white matter and deep white matter of both c erebral hemispheres, compatible with chronic small vessel ischemia. Differential diagnosis does inclu de demyelination. No mass effects are seen.No midline shift. Osseous calvarium is intact. If symptoms persist consider MRI. IMPRESSION: 1. Age related atrophic and chronic small vessel ischemic change without acute intracranial process s een at this time.
[2017-04-26] MEDS: carBAMazepine 200 MG TAB PO SCH ×2 (09:58→21:06)
[2017-04-26] MEDS: levETIRAcetam 500 MG TAB PO SCH ×2 (09:58→21:05)
[2017-04-26] MEDS: methylPREDNISolone SOD SUCCI 125 MG/2 ML VIAL IV SCH ×3 (12:05→23:25)
--- NOTE | 2017-04-26 12:26 | P.HPIM ---
History of Present Illness H&P Date: 04/26/17 Chief Complaint: Chest pain 62-year-old female who presented to the emergency room on 04/25/2017 with a chief complaint of chest pain. In the emergency room an EKG was completed which showed normal sinus rhythm. Troponins were negative. A chest x-ray was completed which was unremarkable. A CT of the chest was negative for pulmonary embolism. An MRI of the brain was also completed which was unremarkable. Apparently the patient was diagnosed with pneumonia and rib fractures in September 2016. She had a hospital admission during this time for chest pain. Since that time, the patient states she has experienced on and off chest pain and chest pressure that also radiates to her back. During that admission the patient underwent a stress test which was negative and also an echocardiogram which was unremarkable. The patient has a history of COPD, TIA, and seizures. The patient was admitted to the hospital for further evaluation under the care of Dr. Turner. Review of Systems Those systems with pertinent positive or pertinent negative responses have been documented in the HPI Past Medical History Past Medical History: COPD, CVA/TIA, Pneumonia, Seizure Disorder Additional Past Medical History / Comment(s): Last seizure 6 years ago, Anemia, pneumonia with rib fractures 09/23, TIA (01/2017) History of Any Multi-Drug Resistant Organisms: None Reported Past Surgical History: No Surgical Hx Reported Additional Past Surgical History / Comment(s): Lung surgery, ENLARGED LYMPH NODE REMOVED BY DR. LUNDBERG Past Anesthesia/Blood Transfusion Reactions: No Reported Reaction Past Psychological History: Anxiety Smoking Status: Never smoker Past Alcohol Use History: None Reported Past Drug Use History: None Reported - Past Family History Mother Family Medical History: No Reported History Medications and Allergies Home Medications Medication Instructions Recorded Confirmed Type levETIRAcetam [Keppra] 1,000 mg PO BID 12/19/13 04/26/17 History carBAMazepine [Epitol] 200 mg PO BID 11/29/16 04/26/17 History ALPRAZolam [Xanax] 0.25 mg PO TID PRN 01/18/17 04/26/17 History Ibuprofen [Motrin] 600 mg PO Q8HR PRN #24 tab 03/31/17 04/26/17 Rx Acetaminophen [Tylenol] 1,000 mg PO BID PRN 04/25/17 04/26/17 History HYDROcodone/APAP 5-325MG [[place] 1 tab PO ONCE PRN 04/25/17 04/26/17 History 5-325] Allergies Allergy/AdvReac Type Severity Reaction Status Date / Time No Known Allergies Allergy Verified 04/26/17 03:32 Physical Exam Vitals: Vital Signs Temp Pulse Pulse Resp BP BP Pulse Ox 04/26/17 08:53 69 04/26/17 08:41 66 98 04/26/17 08:00 20 04/26/17 07:52 98.1 F 79 20 143/79 100 04/26/17 04:00 97.0 F L 86 17 161/78 100 04/26/17 03:15 63 04/26/17 03:07 61 04/26/17 03:01 59 L 18 167/84 100 04/26/17 01:09 97.6 F 71 16 167/84 99 04/26/17 00:00 64 18 170/83 100 04/25/17 23:10 100 04/25/17 23:00 62 18 182/80 100 04/25/17 22:00 62 18 167/85 100 04/25/17 21:25 98.3 F 68 18 131/71 100 04/25/17 20:20 98.0 F 77 18 175/92 98 Intake and Output 04/25/17 04/26/17 04/26/17 22:59 06:59 14:59 Intake Total 109.064 120 Balance 109.064 120 Intake: IV 27 Heparin Sodium,Porcine/ 27 D5w Pmx 25,000 unit In Dextrose/Water 1 500ml. bag @ 12 UNITS/KG/HR 13. 49 mls/hr IV .Q24H JESSICA Rx #:[id number] Intake, IV Titration 82.064 Amount Heparin Sodium,Porcine/ 82.064 D5w Pmx 25,000 unit In Dextrose/Water 1 500ml. bag @ 12 UNITS/KG/HR 13. 49 mls/hr IV .Q24H JESSICA Rx #:[id number] Oral 120 Other: Voiding Method Toilet # Voids 1 2 Weight 56.245 kg 57.2 kg GENERAL: Alert and oriented. Appears in no acute distress. Pleasant. RESPIRATORY: Lungs clear bilaterally. No use of accessory muscles. Patient maintaining oxygen saturation greater than 92%. CARDIOVASCULAR: S1 and S2 noted. No murmurs auscultated. No JVD noted. EXTREMITIES: No edema noted. Palpable pedal pulses +2. ABDOMEN: No distention noted. Abdomen soft and round. Normal active bowel sounds auscultated 4 quadrants. No pain or tenderness noted upon palpation. Results CBC & Chem 7: 04/26/17 02:45 04/25/17 20:25 Labs: Abnormal Lab Results - Last 24 Hours (Table) 04/25/17 04/25/17 04/26/17 Range/Units 20:25 20:25 02:45 RBC 3.41 L (3.80-5.40) m/uL Hgb 10.9 L (11.4-16.0) gm/dL Hct 32.1 L (34.0-46.0) % APTT (22.0-30.0) sec Sodium 136 L (137-145) mmol/L HDL Cholesterol 87 H (40-60) mg/dL 04/26/17 Range/Units 05:58 RBC (3.80-5.40) m/uL Hgb (11.4-16.0) gm/dL Hct (34.0-46.0) % APTT 56.7 H (22.0-30.0) sec Sodium (137-145) mmol/L HDL Cholesterol (40-60) mg/dL Thrombosis Risk Factor Assmnt - Choose All That Apply Any of the Below Risk Factors Present?: No Other Risk Factors: Yes Each Risk Factor Represents 2 Points: Age 61-74 years Other congenital or acquired thrombophilia - If yes, enter type in comment: No Thrombosis Risk Factor Assessment Total Risk Factor Score: 2 Thrombosis Risk Factor Assessment Level: Low Risk Assessment and Plan Plan: ASSESSMENT: -Atypical chest pain, present on admission, EKG negative for ischemic changes -History of pneumonia and rib fractures in September 2016 -History of COPD, possibility of pleurisy versus acute exacerbation of COPD -Unspecified seizure disorder -History of TIA in January 2017 PLAN: -Cardiology on consult. Appreciate recommendations and input -Consult pulmonary -Continue IV steroids: Solu-Medrol 60 mg IV every 6 -D/C Heparin drip per Dr Turner -Resume home meds as appropriate -Monitor labs -Obtain repeat echocardiogram -GI prophylaxis: Pepcid 20 mg PO BID -DVT prophylaxis: Heparin 5000 units subcu every 8 hours -Monitor vital signs and address as appropriate The above impression and plan of care have been discussed and directed by signing physician. Lore García, nurse practitioner, acting as scribe for signing physician.
[2017-04-26] MEDS: ACETAMINOPHEN TAB 500 MG TAB PO PRN ×2 (15:42→21:06)
--- NOTE | 2017-04-26 16:07 | P.CNPUL ---
History of Present Illness Consult date: 04/26/17 Reason for consult: chest pain History of present illness: T2-year-[age] female patient, coming in with pain ACROSS her left lateral chest area. Apparently the patient was in the hospital back in October 2016 and she had a harsh cough related to pneumonia and she injured/cold/fractured her left rib cage area. Since then she's been having pain along the left lateral chest area. For now, the pain is still existing irritants around 5 out of 10 in severity. She is able to speak in full sentences. No hemoptysis. No pleurisy. The pain is a producible upon palpating the same area. Note that cardiology has seen the patient. EKG had shown a normal sinus rhythm without any ischemic changes. Cardiac enzymes were all negative. The patient has undergone a stress test earlier this year and that was also unremarkable. During this current admission my CT angios the chest was done and showed no acute abnormalities. It is free of any pulmonary infiltrates pneumonia. Some minimal atelectatic changes were seen in the lingula. Otherwise there is no pleural effusion. The heart was within normal and there was no evidence of any pericardial effusion. No evidence of any rib cage fractures. No alcoholism. No nausea vomiting. No significant pancreatitis. Most of any trauma or fall. No skin rashes. No shingles. The white cell count is not elevated at 4.3. D- dimer is low at 0.21. CAT scan of the head showing age-related atrophy and small vessel chronic ischemic changes without any acute intracranial process. Review of Systems Constitutional: Denies chills, Denies fever Eyes: denies as per HPI, denies blurred vision, denies bulging eye Ears: deny: decreased hearing, ear discharge, earache Ears, nose, mouth and throat: Denies headache, Denies sore throat Cardiovascular: Reports chest pain Respiratory: Denies cough Gastrointestinal: Denies abdominal pain, Denies diarrhea, Denies nausea, Denies vomiting Genitourinary: Denies dysuria, Denies hematuria Musculoskeletal: absent: ankle pain, ankle stiffness, ankle swelling Integumentary: Denies pruritus, Denies rash Neurological: Denies numbness, Denies weakness Endocrine: Denies fatigue, Denies weight change Past Medical History Past Medical History: COPD, CVA/TIA, Pneumonia, Seizure Disorder Additional Past Medical History / Comment(s): Seizures/epilepsy and the patient' s left bouts of seizure was more than 6 years ago, COPD, chronic anemia History of Any Multi-Drug Resistant Organisms: None Reported Past Surgical History: No Surgical Hx Reported Additional Past Surgical History / Comment(s): Mediastinoscopy for a mediastinal lymph node enlargement Past Anesthesia/Blood Transfusion Reactions: No Reported Reaction Past Psychological History: Anxiety Smoking Status: Never smoker Past Alcohol Use History: None Reported Past Drug Use History: None Reported - Past Family History Mother Family Medical History: No Reported History Medications and Allergies Home Medications Medication Instructions Recorded Confirmed Type levETIRAcetam [Keppra] 1,000 mg PO BID 12/19/13 04/26/17 History carBAMazepine [Epitol] 200 mg PO BID 11/29/16 04/26/17 History ALPRAZolam [Xanax] 0.25 mg PO TID PRN 01/18/17 04/26/17 History Ibuprofen [Motrin] 600 mg PO Q8HR PRN #24 tab 03/31/17 04/26/17 Rx Acetaminophen [Tylenol] 1,000 mg PO BID PRN 04/25/17 04/26/17 History HYDROcodone/APAP 5-325MG [[place] 1 tab PO ONCE PRN 04/25/17 04/26/17 History 5-325] Allergies Allergy/AdvReac Type Severity Reaction Status Date / Time No Known Allergies Allergy Verified 04/26/17 03:32 Physical Exam Vitals: Vital Signs Temp Pulse Pulse Resp BP BP Pulse Ox 04/26/17 15:54 72 04/26/17 12:24 74 04/26/17 12:15 78 04/26/17 12:00 98.3 F 70 18 146/69 99 04/26/17 08:53 69 04/26/17 08:41 66 98 04/26/17 08:00 20 04/26/17 07:52 98.1 F 79 20 143/79 100 04/26/17 04:00 97.0 F L 86 17 161/78 100 04/26/17 03:15 63 04/26/17 03:07 61 04/26/17 03:01 59 L 18 167/84 100 04/26/17 01:09 97.6 F 71 16 167/84 99 04/26/17 00:00 64 18 170/83 100 04/25/17 23:10 100 04/25/17 23:00 62 18 182/80 100 04/25/17 22:00 62 18 167/85 100 04/25/17 21:25 98.3 F 68 18 131/71 100 04/25/17 20:20 98.0 F 77 18 175/92 98 Intake and Output 04/26/17 04/26/17 04/26/17 06:59 14:59 22:59 Intake Total 109.064 120 Balance 109.064 120 Intake: IV 27 Heparin Sodium,Porcine/ 27 D5w Pmx 25,000 unit In Dextrose/Water 1 500ml. bag @ 12 UNITS/KG/HR 13. 49 mls/hr IV .Q24H JESSICA Rx #:[id number] Intake, IV Titration 82.064 Amount Heparin Sodium,Porcine/ 82.064 D5w Pmx 25,000 unit In Dextrose/Water 1 500ml. bag @ 12 UNITS/KG/HR 13. 49 mls/hr IV .Q24H JESSICA Rx #:[id number] Oral 120 Other: Voiding Method Toilet # Voids 1 2 Weight 57.2 kg Gen. appearance she is calm and comfortable likely distress. Is atraumatic normocephalic. Neck is supple and there is no JVDs no with or neck masses. Lungs are clear to auscultation. No wheezes or rhonchi any crackles. The left lateral chest wall pain is very much a producible upon palpating the lower chest border across the stomach and the splenic area extending into the left upper quadrant and epigastric area and moving laterally to the lateral chest. No deformities. No bruises. No other abnormalities noted on examination. My normal heart by normal abdomenCardiac exam revealed the PMI to be normally situated and sized. The rhythm was regular and no extrasystoles were noted during several minutes of auscultation. The first and second heart sounds were normal and physiologic splitting of the second heart sound was noted. Cardiac exam revealed the PMI to be normally situated and sized. The rhythm was regular and no extrasystoles were noted during several minutes of auscultation. The first and second heart sounds were normal and physiologic splitting of the second heart sound was noted. There were no murmurs, rubs, clicks, or gallops.Abdominal exam revealed normal bowel sounds. The abdomen was soft, non- tender, and without masses, organomegaly, or appreciable enlargement of the abdominal aorta.Examination of the extremities revealed easily palpable radial, femoral and pedal pulses. There was no cyanosis, clubbing or edema. Skin is within normal and that is no evidence of any rashes or cellulitis. Skeletal examination shows a producible pain over the left lateral chest area. Neuro is negative for any focal neurological deficits. No cranial nerve deficits. Results - Laboratory Findings CBC and BMP: 04/26/17 02:45 04/25/17 20:25 PT/INR, D-dimer PT 10.4 sec (9.0-12.0) 04/25/17 20:25 INR 1.0 (<1.2) 04/25/17 20:25 D-Dimer 0.21 mg/L FEU (<0.60) 04/25/17 20:25 Abnormal lab findings: Abnormal Labs 04/25/17 04/25/17 04/26/17 20:25 20:25 02:45 RBC 3.41 L Hgb 10.9 L Hct 32.1 L APTT Sodium 136 L HDL Cholesterol 87 H 04/26/17 05:58 RBC Hgb Hct APTT 56.7 H Sodium HDL Cholesterol - Diagnostic Findings Chest x-ray: image reviewed CT scan - chest: image reviewed Assessment and Plan Plan: Assessment 1 left sided chest wall pain along the left lateral rib cage inferiorly and laterally and this is very much reproducible upon palpation. CT angios the chest is negative for pneumonia, ribfractures or deformities, pulmonary embolism or any other floor surface abnormalities. 2 previous history of pneumonia in September 2016 3 COPD by history 4 seizure disorder 5 previous history of CVA/TIA, current CAT scan is negative Plan Order amylase lipase. Ordered a CAT scan of the abdomen and pelvis to complete the workup. The pain is not limited only to the left lateral and anterior chest area is probably extending to the upper abdomen and I think worthwhile to obtain a CAT scan of the abdomen and pelvis in addition. Pulmonary status is stable. The patient's on room air. Hemodynamically stable. Stop IV heparin. Cardiac enzymes are negative. Cardiology consultation. Echocardiogram critical follow.
[2017-04-26] MEDS: HEPARIN SODIUM,PORCINE 5,000 UNIT/ML 1 ML VIAL SQ SCH ×2 (17:37→23:26)
[2017-04-26 19:24] LABS: Amylase 65 U/L (30-110)
[2017-04-26 20:31] LABS: Blood Urea Nitrogen 7 mg/dL (7-17); Non-African American GFR(MDRD) >60 (>60 ml/min/1.73 sqM)
[2017-04-26] MEDS: FAMOTIDINE 20 MG TAB PO SCH (21:06)
[2017-04-26] MEDS: INSULIN LISPRO (humaLOG) 300 UNIT/3 ML VIAL SQ SCH (21:10)
[2017-04-26 21:18] LABS: Glucose,Whole Blood 148 mg/dL (75-99)
[2017-04-27] MEDS: IOHEXOL 350 MG/ML 25 ML BOTTLE (ORAL USE) PO PRN ×2 (06:06→07:06)
[2017-04-27] MEDS: methylPREDNISolone SOD SUCCI 125 MG/2 ML VIAL IV SCH ×4 (06:06→23:19)
[2017-04-27 07:36] LABS: Glucose,Whole Blood 100 mg/dL (75-99)
[2017-04-27] MEDS: INSULIN LISPRO (humaLOG) 300 UNIT/3 ML VIAL SQ SCH ×4 (08:06→20:18)
[2017-04-27] MEDS: carBAMazepine 200 MG TAB PO SCH ×2 (08:07→20:17)
[2017-04-27] MEDS: FAMOTIDINE 20 MG TAB PO SCH (08:07)
[2017-04-27] MEDS: levETIRAcetam 500 MG TAB PO SCH ×2 (08:07→20:17)
[2017-04-27] MEDS: ASPIRIN 325 MG TAB PO SCH (08:07)
[2017-04-27] MEDS: HEPARIN SODIUM,PORCINE 5,000 UNIT/ML 1 ML VIAL SQ SCH ×3 (08:07→23:21)
--- NOTE | 2017-04-27 08:36 | CT ---
EXAMINATION TYPE: CT abdomen pelvis w con DATE OF EXAM: 04/27/2017 COMPARISON: 09/18/2015 HISTORY: 62-year-old female abdominal pain, epigastric pain, left upper quadrant pain. TECHNIQUE: Contiguous axial scanning of the abdomen and pelvis following administration of 100 ml Omn ipaque 300 IV contrast. Delayed images through the kidneys and coronal/sagittal reconstructions perf ormed. CT DLP: 415.40 mGycm Automated exposure control for dose reduction was used. FINDINGS: The heart is normal size without pericardial effusion. Lung bases clear without pleural effusion. There may be very mild circumferential wall thickening of the distal esophagus at the GE junction. No focal liver lesion or biliary ductal dilatation. Portal venous system is patent. Gallbladder, adrenal glands, kidneys, spleen, and pancreas appear within normal limits. No dilated small bowel, free fluid, or free air. Mild to moderate stool burden. No pericolonic inflammatory change. The previously seen concentric bonita rowing of the mid transverse colon has resolved. Nonspecific borderline prominent 5 mm gastrocolic ligament lymph node is unchanged. No mesenteric or retroperitoneal lymphadenopathy. Bladder is urine distended. Uterus and ovaries are visualized. No abnormal fluid collection in pelvis or pelvic lymphadenopathy.. Bones: Mild degenerative changes at the hips and left SI joint. No osseous destructive process. IMPRESSION: VERY MILD CIRCUMFERENTIAL WALL THICKENING OF THE DISTAL ESOPHAGUS AT THE GE JUNCTION COULD REPRESENT ESOPHAGITIS. CORRELATE WITH PATIENT'S SYMPTOMS. OTHERWISE, NO ACUTE INFLAMMATORY PROCESS IDENTIFIED I N THE ABDOMEN OR PELVIS TO EXPLAIN THE PATIENT'S SYMPTOMS.
[2017-04-27] MEDS: IPRATROPIUM-ALBUTEROL 3 ML NEB INHALATION SCH ×4 (08:49→20:44)
[2017-04-27] MEDS: NITROGLYCERIN SL TABS 0.4 MG TAB SUBLINGUAL PRN ×2 (08:52→08:58)
[2017-04-27 09:06] LABS: Basophils % (A) 0 %; CH 31.5; CHCM 32.6; Eosinophils % (A) 0 %; HCT 33.8 % (34.0-46.0); HDW 2.26; HGB 11.5 gm/dL (11.4-16.0); Luc # (Auto) 0.09; Luc % (Auto) 1; Lymphocytes # (A) 0.5 k/uL (1.0-4.8); Lymphocytes % (A) 6 %; MCH 33.1 pg (25.0-35.0); MCHC 34.1 g/dL (31.0-37.0); MCV 97.1 fL (80.0-100.0); Mean Platelet Volume 6.8; Monocytes # (A) 0.5 k/uL (0-1.0); Monocytes % (A) 6 %; Neutrophils # (A) 7.4 k/uL (1.3-7.7); Neutrophils % (A) 87 %; RBC 3.48 m/uL (3.80-5.40); RDW 12.4 % (11.5-15.5); WBC 8.5 k/uL (3.8-10.6); WBC (Perox) 8.68
[2017-04-27 09:20] LABS: Anion Gap 12 mmol/L; Blood Urea Nitrogen 14 mg/dL (7-17); Calcium 9.2 mg/dL (8.4-10.2); Carbon Dioxide 23 mmol/L (22-30); Chloride 99 mmol/L (98-107); Glucose 97 mg/dL (74-99); Non-African American GFR(MDRD) >60 (>60 ml/min/1.73 sqM); Potassium 4.4 mmol/L (3.5-5.1); Sodium 134 mmol/L (137-145)
--- NOTE | 2017-04-27 10:11 | ECHOF ---
Referral Reason:chest pain MEASUREMENTS -------- HEIGHT: 157.5 cm WEIGHT: 57.2 kg BP: 143/79 IVSd: 0.9 cm (0.6 - 1.1) LVIDd: 3.4 cm (3.9 - 5.3) LVPWd: 1.0 cm (0.6 - 1.1) IVSs: 1.1 cm LVIDs: 2.5 cm LVPWs: 0.9 cm LA Diam: 2.4 cm (2.7 - 3.8) Ao Diam: 2.5 cm (2.0 - 3.7) AV Cusp: 1.7 cm (1.5 - 2.6) LA Diam: 2.5 cm (2.7 - 3.8) MV EXCURSION: 18.612 mm (> 18.000) MV EF SLOPE: 85 mm/s (70 - 150) EPSS: 0.5 cm MV E Tripp: 0.55 m/s MV DecT: 195 ms MV A Tripp: 0.57 m/s MV E/A Ratio: 0.97 RAP: 5.00 mmHg RVSP: 18.32 mmHg FINDINGS -------- Sinus rhythm. This was a technically adequate study. LV size, wall thickness and systolic function are normal, with an EF greater than 55%. The left ventricular size is normal. Overall left ventricular systolic function is normal with, an EF between 65 - 70 %. The right ventricle is normal in size. The left atrial size is normal. The right atrial size is normal. The aortic valve is trileaflet, and appears structurally normal. No aortic stenosis or regurgitation. Mild mitral regurgitation is present. The tricuspid valve appears myxomatous. Mild tricuspid regurgitation present. There is no evidence of pulmonary hypertension. The right ventricular systolic pressure, as measured by Doppler, is 18.32mmHg. The pulmonic valve was not well visualized. The aortic root size is normal. There is no pericardial effusion. CONCLUSIONS -------- 1. LV size, wall thickness and systolic function are normal, with an EF greater than 55%. 2. The aortic root size is normal. 3. There is no pericardial effusion. 4. The left ventricular size is normal. 5. Overall left ventricular systolic function is normal with, an EF between 65 - 70 %. 6. The aortic valve is trileaflet, and appears structurally normal. No aortic stenosis or regurgitation. 7. Mild mitral regurgitation is present. 8. Mild tricuspid regurgitation present. 9. There is no evidence of pulmonary hypertension. 10. The right ventricular systolic pressure, as measured by Doppler, is 18.32mmHg. 11. The pulmonic valve was not well visualized. BREAK OUT MAN: Betty Jackson RDCS
[2017-04-27] MEDS: ALPRAZolam 0.25 MG TAB PO PRN (11:11)
[2017-04-27 11:26] LABS: Glucose,Whole Blood 151 mg/dL (75-99)
--- NOTE | 2017-04-27 11:50 | P.PN ---
Subjective Principal diagnosis: 62-year-old female who presented to the emergency room on 04/25/2017 with a chief complaint of chest pain. In the emergency room an EKG was completed which showed normal sinus rhythm. Troponins were negative. A chest x-ray was completed which was unremarkable. A CT of the chest was negative for pulmonary embolism. An MRI of the brain was also completed which was unremarkable. Apparently the patient was diagnosed with pneumonia and rib fractures in September 2016. She had a hospital admission during this time for chest pain. Since that time, the patient states she has experienced on and off chest pain and chest pressure that also radiates to her back. During that admission the patient underwent a stress test which was negative and also an echocardiogram which was unremarkable. This morning the patient states that she is still having pain on the left side of her chest, but states it has improved since yesterday. She states her appetite is good and she ate her breakfast this morning without nausea or vomiting. Pulmonary was consulted yesterday who thought the patient may have pancreatitis. The CT of the abdomen was completed. The pancreas appeared normal. It did show mild wall thickening of the distal esophagus at the GE junction that could represent esophagitis, otherwise it was unremarkable. Her vital signs are stable. She remains afebrile. She is on 2 L nasal cannula with oxygen saturation greater than 92%. Patient did have some PVCs throughout the night, patient asymptomatic. Magnesium and potassium within normal limits. Cardiology re-evaluated patient and troponin ordered. Objective - Vital Signs Vital signs: Vital Signs Temp 97.7 F 04/27/17 07:00 Pulse 92 04/27/17 07:00 Resp 16 04/27/17 07:00 BP 133/97 04/27/17 07:00 Pulse Ox 100 04/27/17 07:00 Intake & Output 04/26/17 04/27/17 04/27/17 18:59 06:59 18:59 Intake Total 360 20 Balance 360 20 Weight 57.5 kg Intake: IV 20 saline flush 20 Oral 360 Other: Voiding Method Toilet # Voids 2 1 - Exam GENERAL: Alert and oriented. Appears in no acute distress. Pleasant. RESPIRATORY: Lungs clear bilaterally. No use of accessory muscles. Patient maintaining oxygen saturation greater than 92%. CARDIOVASCULAR: S1 and S2 noted. No murmurs auscultated. No JVD noted. EXTREMITIES: No edema noted. Palpable pedal pulses +2. ABDOMEN: No distention noted. Abdomen soft and round. Normal active bowel sounds auscultated 4 quadrants. No pain or tenderness noted upon palpation. - Labs CBC & Chem 7: 04/27/17 08:21 04/27/17 08:21 Labs: Abnormal Lab Results - Last 24 Hours (Table) 04/26/17 04/27/17 04/27/17 Range/Units 21:10 07:33 08:21 RBC 3.48 L (3.80-5.40) m/uL Hct 33.8 L (34.0-46.0) % Lymphocytes # 0.5 L (1.0-4.8) k/uL POC Glucose (mg/dL) 148 H 100 H (75-99) mg/dL Assessment and Plan Plan: ASSESSMENT: -Atypical chest pain, present on admission, EKG negative for ischemic changes -History of pneumonia and rib fractures in September 2016 -History of COPD, no evidence of acute exacerbation of COPD -Unspecified seizure disorder -Pleurisy, ruled out by pulmonary -History of TIA in January 2017 PLAN: -Cardiology on consult. Appreciate recommendations and input -Pulmonary on consult. Appreciate recommendations and input. -Continue IV steroids: Solu-Medrol 60 mg IV every 6 -Obtain amylase/lipase as recommended by pulmonary -Consult GI service, may need EGD -Monitor labs -GI prophylaxis: Protonix 40mg IVP daily -DVT prophylaxis: Heparin 5000 units subcu every 8 hours -Monitor vital signs and address as appropriate The above impression and plan of care have been discussed and directed by signing physician. Lore García, nurse practitioner, acting as scribe for signing physician.
--- NOTE | 2017-04-27 11:57 | P.CONS ---
History of Present Illness - Reason for Consult Consult date: 04/27/17 Esophagitis Requesting physician: Jordi Turner - History of Present Illness 62-year-old female admitted with left-sided chest pain. Patient states she was diagnosed with pneumonia October 2016 and fractured her left ribs and since had persistent left-sided reproducible chest pain. She has been taking Motrin on a daily basis for several weeks for this type of pain. Denies hematemesis hematochezia melena or weight loss. No emesis. Pain does not worsen with meals. CT chest reported no acute abnormalities. CT abdomen and pelvis reported circumferential GE junction thickening. Cardiac enzymes unremarkable. Stress test earlier this year was also unremarkable. Cardiology following. Presently receiving intravenous steroids and full-strength aspirin. No PPI or H2 antagonist therapy at home. Similar presentation of this type of pain in July 2015 underwent EGD colonoscopy evaluation with findings of a small sliding hiatal hernia no complicated reflux disease. Antral gastritis. Sigmoid polypectomy. White count 8.5. Hemoglobin 11.5. BUN 14. Creatinine 0.6. Lipase 140. LFTs within normal limits. Review of Systems Constitutional: Denies fever, chills, sweats, weight gain, or loss. HEENT: Negative for migraines, blurred vision or loss, earaches, drainage, tinnitus, oral mucosal lesions, dysphagia, or odynophagia. CARDIAC: Negative for chest pain, arrhythmias, or palpitation. RESPIRATORY: COPD. Pneumonia. Negative for shortness of breath, hemoptysis, cough, or sputum production. GI: See HPI for pertinent findings. : Negative for hematuria, urgency, frequency, polyuria, or dysuria. GYNc: Denies possibility of . Negative vaginal discharge. MUSCULOSKELETAL: History of seizures. Negative for muscle aches, swelling, arthritis, and arthralgias. NEUROLOGIC: CVA/TIA.. ENDOCRINE: Negative for thyroid problems. SKIN: Negative for rash or itching. PSYCHIATRIC: Negative history for depression and anxiety All systems: negative (See HPI) Past Medical History Past Medical History: COPD, CVA/TIA, Pneumonia, Seizure Disorder Additional Past Medical History / Comment(s): Seizures/epilepsy and the patient' s left bouts of seizure was more than 6 years ago, COPD, chronic anemia History of Any Multi-Drug Resistant Organisms: None Reported Past Surgical History: No Surgical Hx Reported Additional Past Surgical History / Comment(s): Mediastinoscopy for a mediastinal lymph node enlargement Past Anesthesia/Blood Transfusion Reactions: No Reported Reaction Past Psychological History: Anxiety Smoking Status: Never smoker Past Alcohol Use History: None Reported Past Drug Use History: None Reported - Past Family History Mother Family Medical History: No Reported History Medications and Allergies Home Medications Medication Instructions Recorded Confirmed Type levETIRAcetam [Keppra] 1,000 mg PO BID 12/19/13 04/26/17 History carBAMazepine [Epitol] 200 mg PO BID 11/29/16 04/26/17 History ALPRAZolam [Xanax] 0.25 mg PO TID PRN 01/18/17 04/26/17 History Ibuprofen [Motrin] 600 mg PO Q8HR PRN #24 tab 03/31/17 04/26/17 Rx Acetaminophen [Tylenol] 1,000 mg PO BID PRN 04/25/17 04/26/17 History HYDROcodone/APAP 5-325MG [[place] 1 tab PO ONCE PRN 04/25/17 04/26/17 History 5-325] Allergies Allergy/AdvReac Type Severity Reaction Status Date / Time No Known Allergies Allergy Verified 04/26/17 03:32 Physical Exam Vitals: Vital Signs Temp Pulse Pulse Resp BP Pulse Ox 04/27/17 07:00 97.7 F 92 16 133/97 100 04/26/17 20:35 96 04/26/17 20:15 72 04/26/17 20:04 70 04/26/17 20:00 97.1 F L 89 18 128/74 96 04/26/17 16:05 74 04/26/17 16:00 98 F 83 16 126/70 98 04/26/17 15:54 72 04/26/17 12:24 74 04/26/17 12:15 78 04/26/17 12:00 98.3 F 70 18 146/69 99 Intake and Output 04/26/17 04/27/17 04/27/17 22:59 06:59 14:59 Intake Total 240 20 Balance 240 20 Intake: IV 20 saline flush 20 Oral 240 Other: Voiding Method Toilet Toilet # Voids 1 Weight 57.5 kg General appearance: The patient is alert, oriented, in no acute distress. HET: Head is normocephalic and atraumatic. Pupils are equal and reactive. Oropharynx is clear without lesions. Neck: Supple without lymphadenopathy. Trachea midline. Heart: S1 S2. Regular rate and rhythm. Palpable mild left anterior chest wall tenderness Lungs: No crackles or wheezes are heard. Abdomen: Soft, mild midepigastric tenderness, nondistended with bowel sounds. No peritoneal signs. No palpable organomegaly or masses. Extremities: Normal skin color and turgor. No cyanosis, rash, ulceration, clubbing, or edema. Radial and pedal pulses are 2/4 bilaterally. Neurological: No focal deficits. Strength and sensation are grossly intact. Results CBC & Chem 7: 04/27/17 08:21 04/27/17 08:21 Labs: Abnormal Lab Results - Last 24 Hours (Table) 04/26/17 04/27/17 04/27/17 Range/Units 21:10 07:33 08:21 RBC 3.48 L (3.80-5.40) m/uL Hct 33.8 L (34.0-46.0) % Lymphocytes # 0.5 L (1.0-4.8) k/uL Sodium (137-145) mmol/L POC Glucose (mg/dL) 148 H 100 H (75-99) mg/dL 04/27/17 04/27/17 Range/Units 08:21 11:13 RBC (3.80-5.40) m/uL Hct (34.0-46.0) % Lymphocytes # (1.0-4.8) k/uL Sodium 134 L (137-145) mmol/L POC Glucose (mg/dL) 151 H (75-99) mg/dL CT scan - abdomen: report reviewed (Dr. Torres) Assessment and Plan (1) Chest pain Narrative/Plan: Possible exacerbation of GERD possible peptic ulcer disease with chronic NSAID usage last several weeks for treatment of left chest pain. CT imaging reported GE junction circumferential thickening. Status: Acute Plan: 1. EGD evaluation tomorrow morning. 2. Protonix 40 mg IV daily. The auxiliary power equipment operator has discussed the risks, benefits and alternative therapies for the above-mentioned procedure and for both sedation/analgesia as well as necessary blood product administration, if indicated, as they pertain to this patient. The patient has indicated understanding and acceptance of the risks and procedures discussed. Thank you for this kind referral and the opportunity to participate in the care of your patient. This consultation was discussed with Dr. Torres. The impression and plan of care have been directed as dictated.
[2017-04-27] MEDS: PANTOPRAZOLE 40 MG/10 ML VIAL IVP SCH (13:12)
--- NOTE | 2017-04-27 16:54 | P.PN ---
Subjective 62-year-old female patient, coming in with pain ACROSS her left lateral chest area. Apparently the patient was in the hospital back in October 2016 and she had a harsh cough related to pneumonia and she injured/cold/fractured her left rib cage area. Since then she's been having pain along the left lateral chest area. For now, the pain is still existing irritants around 5 out of 10 in severity. She is able to speak in full sentences. No hemoptysis. No pleurisy. The pain is a producible upon palpating the same area. Note that cardiology has seen the patient. EKG had shown a normal sinus rhythm without any ischemic changes. Cardiac enzymes were all negative. The patient has undergone a stress test earlier this year and that was also unremarkable. During this current admission my CT angios the chest was done and showed no acute abnormalities. It is free of any pulmonary infiltrates pneumonia. Some minimal atelectatic changes were seen in the lingula. Otherwise there is no pleural effusion. The heart was within normal and there was no evidence of any pericardial effusion. No evidence of any rib cage fractures. No alcoholism. No nausea vomiting. No significant pancreatitis. Most of any trauma or fall. No skin rashes. No shingles. The white cell count is not elevated at 4.3. D- dimer is low at 0.21. CAT scan of the head showing age-related atrophy and small vessel chronic ischemic changes without any acute intracranial process. On the patient tells that her pain has somewhat subsided. She is laying down comfortably in bed. Amylase and lipase are within normal limits. CAT scan of the abdomen showed some thickening of the distal esophageal wall. There is no any other abnormalities in the lung bases or the abdomen explaining this patient's left-sided chest wall pain. Cardiology has seen the patient and their input is appreciated. Follow pulmonary standpoint, I cannot explain this patient's pain which is very much producible upon palpating the area. An EGD is planned by gastroenterology and this will be done tomorrow. Objective - Vital Signs Vital signs: Vital Signs Temp 98.3 F 04/27/17 15:00 Pulse 82 04/27/17 16:14 Resp 18 04/27/17 15:00 BP 124/65 04/27/17 15:00 Pulse Ox 98 04/27/17 15:00 Intake & Output 04/26/17 04/27/17 04/27/17 18:59 06:59 18:59 Intake Total 360 20 Balance 360 20 Weight 57.5 kg Intake: IV 20 saline flush 20 Oral 360 Other: Voiding Method Toilet # Voids 2 1 1 - Exam Gen. appearance she is calm and comfortable likely distress. Is atraumatic normocephalic. Neck is supple and there is no JVDs no with or neck masses. Lungs are clear to auscultation. No wheezes or rhonchi any crackles. The left lateral chest wall pain is very much a producible upon palpating the lower chest border across the stomach and the splenic area extending into the left upper quadrant and epigastric area and moving laterally to the lateral chest. No deformities. No bruises. No other abnormalities noted on examination. My normal heart by normal abdomenCardiac exam revealed the PMI to be normally situated and sized. The rhythm was regular and no extrasystoles were noted during several minutes of auscultation. The first and second heart sounds were normal and physiologic splitting of the second heart sound was noted. Cardiac exam revealed the PMI to be normally situated and sized. The rhythm was regular and no extrasystoles were noted during several minutes of auscultation. The first and second heart sounds were normal and physiologic splitting of the second heart sound was noted. There were no murmurs, rubs, clicks, or gallops.Abdominal exam revealed normal bowel sounds. The abdomen was soft, non- tender, and without masses, organomegaly, or appreciable enlargement of the abdominal aorta.Examination of the extremities revealed easily palpable radial, femoral and pedal pulses. There was no cyanosis, clubbing or edema. Skin is within normal and that is no evidence of any rashes or cellulitis. Skeletal examination shows a producible pain over the left lateral chest area. Neuro is negative for any focal neurological deficits. No cranial nerve deficits. - Labs CBC & Chem 7: 04/27/17 08:21 04/27/17 08:21 Labs: Abnormal Lab Results - Last 24 Hours (Table) 04/26/17 04/27/17 04/27/17 Range/Units 21:10 07:33 08:21 RBC 3.48 L (3.80-5.40) m/uL Hct 33.8 L (34.0-46.0) % Lymphocytes # 0.5 L (1.0-4.8) k/uL Sodium (137-145) mmol/L POC Glucose (mg/dL) 148 H 100 H (75-99) mg/dL 04/27/17 04/27/17 Range/Units 08:21 11:13 RBC (3.80-5.40) m/uL Hct (34.0-46.0) % Lymphocytes # (1.0-4.8) k/uL Sodium 134 L (137-145) mmol/L POC Glucose (mg/dL) 151 H (75-99) mg/dL Assessment and Plan Plan: Assessment 1 left sided chest wall pain along the left lateral rib cage inferiorly and laterally and this is very much reproducible upon palpation. CT angios the chest is negative for pneumonia, ribfractures or deformities, pulmonary embolism or any other floor surface abnormalities. 2 previous history of pneumonia in September 2016 3 COPD by history 4 seizure disorder 5 previous history of CVA/TIA, current CAT scan is negative Plan CAT scan of the abdomen is normal. Amylase and lipase is within normal limits. The pain is subsided. He is not completely resolved. EGD in a.m. We'll continue to follow. The pain is benign and do not see any pulmonary or intra- abdominal abnormality to explain this patient's ongoing chest wall pain.
[2017-04-27 17:22] LABS: Glucose,Whole Blood 160 mg/dL (75-99)
[2017-04-27 20:15] LABS: Glucose,Whole Blood 116 mg/dL (75-99)
[2017-04-27] MEDS: ACETAMINOPHEN TAB 500 MG TAB PO PRN (20:51)
[2017-04-28] MEDS: methylPREDNISolone SOD SUCCI 125 MG/2 ML VIAL IV SCH ×4 (05:24→23:58)
[2017-04-28 07:02] LABS: Glucose,Whole Blood 123 mg/dL (75-99)
[2017-04-28] MEDS: ACETAMINOPHEN TAB 500 MG TAB PO PRN ×2 (07:07→21:33)
[2017-04-28] MEDS: IPRATROPIUM-ALBUTEROL 3 ML NEB INHALATION SCH ×4 (07:25→20:27)
[2017-04-28] MEDS: INSULIN LISPRO (humaLOG) 300 UNIT/3 ML VIAL SQ SCH ×4 (08:13→21:36)
[2017-04-28] MEDS: ASPIRIN 325 MG TAB PO SCH (08:18)
[2017-04-28] MEDS: HEPARIN SODIUM,PORCINE 5,000 UNIT/ML 1 ML VIAL SQ SCH ×3 (08:19→23:58)
[2017-04-28] MEDS: ALPRAZolam 0.25 MG TAB PO PRN ×2 (08:33→21:32)
--- NOTE | 2017-04-28 08:59 | P.PN ---
Subjective Principal diagnosis: 62-year-old female who presented to the emergency room on 04/25/2017 with a chief complaint of chest pain. In the emergency room an EKG was completed which showed normal sinus rhythm. Troponins were negative. A chest x-ray was completed which was unremarkable. A CT of the chest was negative for pulmonary embolism. An MRI of the brain was also completed which was unremarkable. Apparently the patient was diagnosed with pneumonia and rib fractures in September 2016. She had a hospital admission during this time for chest pain. Since that time, the patient states she has experienced on and off chest pain and chest pressure that also radiates to her back. During that admission the patient underwent a stress test which was negative and also an echocardiogram which was unremarkable. Pulmonary was consulted who thought the patient may have pancreatitis. The CT of the abdomen was completed. The pancreas appeared normal. It did show mild wall thickening of the distal esophagus at the GE junction that could represent esophagitis, otherwise it was unremarkable. GI has been consulted and the patient is scheduled for EGD today. She remains NPO for procedure today. Patient did have some PVCs yesterday, patient asymptomatic. Magnesium and potassium within normal limits. Cardiology re-evaluated patient and troponin ordered, which were within normal limits. This morning the patient states that she is still having pain on the left side of her chest and it is worse than yesterday. She states she is having some anxiety this morning. Spoke with nursing and patient to receive a dose of Xanax. Lab work from this morning is not resulted at this time. Her vital signs remained stable. She is afebrile. She is on 2 L nasal cannula with oxygen saturation greater than 92% Objective - Vital Signs Vital signs: Vital Signs Temp 97.6 F 04/28/17 07:00 Pulse 74 04/28/17 07:37 Resp 14 04/28/17 07:00 BP 118/65 04/28/17 07:00 Pulse Ox 95 04/28/17 07:00 Intake & Output 04/27/17 04/28/17 04/28/17 18:59 06:59 18:59 Intake Total 110 Balance 110 Weight 57.5 kg Intake: IV 10 saline flush 10 Oral 100 Other: Voiding Method Toilet Toilet # Voids 1 1 - Exam GENERAL: Alert and oriented. Appears anxious. Pleasant and cooperative. RESPIRATORY: Lungs clear bilaterally. No use of accessory muscles. Patient maintaining oxygen saturation greater than 92%. CARDIOVASCULAR: S1 and S2 noted. No murmurs auscultated. No JVD noted. EXTREMITIES: No edema noted. Palpable pedal pulses +2. ABDOMEN: No distention noted. Abdomen soft and round. Normal active bowel sounds auscultated 4 quadrants. No pain or tenderness noted upon palpation. - Labs CBC & Chem 7: 04/28/17 08:54 04/28/17 08:54 Labs: Abnormal Lab Results - Last 24 Hours (Table) 04/27/17 04/27/17 04/27/17 Range/Units 08:21 08:21 11:13 RBC 3.48 L (3.80-5.40) m/uL Hct 33.8 L (34.0-46.0) % Lymphocytes # 0.5 L (1.0-4.8) k/uL Sodium 134 L (137-145) mmol/L POC Glucose (mg/dL) 151 H (75-99) mg/dL 04/27/17 04/27/17 04/28/17 Range/Units : 20:12 07:00 RBC (3.80-5.40) m/uL Hct (34.0-46.0) % Lymphocytes # (1.0-4.8) k/uL Sodium (137-145) mmol/L POC Glucose (mg/dL) 160 H 116 H 123 H (75-99) mg/dL Assessment and Plan Plan: ASSESSMENT: -Atypical chest pain, present on admission, EKG negative for ischemic changes -History of pneumonia and rib fractures in September 2016 -History of COPD, no evidence of acute exacerbation of COPD -Unspecified seizure disorder -Pleurisy, ruled out by pulmonary -History of TIA in January 2017 -Esophagitis, suspected, patient scheduled for EGD today PLAN: -Cardiology on consult. Appreciate recommendations and input -Pulmonary on consult. Appreciate recommendations and input. -Continue IV steroids: Solu-Medrol 40 mg IV every 6 -Will add valium 5mg PO TID PRN for muscle spams -Maintain NPO -Patient scheduled for EGD today. Await results for further recommendations -Monitor labs -Continue xanax for anxiety -GI prophylaxis: Protonix 40mg IVP daily -DVT prophylaxis: Heparin 5000 units subcu every 8 hours -Monitor vital signs and address as appropriate The above impression and plan of care have been discussed and directed by signing physician. Lore García, nurse practitioner, acting as scribe for signing physician.
[2017-04-28 09:37] LABS: Basophils % (A) 0 %; CH 31.3; CHCM 31.3; Eosinophils % (A) 0 %; HDW 2.11; Luc # (Auto) 0.08; Luc % (Auto) 1; Lymphocytes # (A) 0.5 k/uL (1.0-4.8); Lymphocytes % (A) 6 %; MCH 32.6 pg (25.0-35.0); MCHC 32.5 g/dL (31.0-37.0); MCV 100.5 fL (80.0-100.0); Mean Platelet Volume 6.7; Monocytes # (A) 0.3 k/uL (0-1.0); Monocytes % (A) 4 %; Neutrophils # (A) 7.3 k/uL (1.3-7.7); Neutrophils % (A) 89 %; RBC 3.38 m/uL (3.80-5.40); RDW 12.5 % (11.5-15.5); WBC 8.3 k/uL (3.8-10.6); WBC (Perox) 8.48
[2017-04-28 09:49] LABS: Anion Gap 11 mmol/L; Blood Urea Nitrogen 16 mg/dL (7-17); Calcium 8.8 mg/dL (8.4-10.2); Carbon Dioxide 22 mmol/L (22-30); Chloride 105 mmol/L (98-107); Glucose 128 mg/dL (74-99); Non-African American GFR(MDRD) >60 (>60 ml/min/1.73 sqM); Sodium 138 mmol/L (137-145)
[2017-04-28] MEDS: PANTOPRAZOLE 40 MG/10 ML VIAL IVP SCH (09:54)
[2017-04-28] MEDS: LACTATED RINGERS 1,000 ML IV SCH (09:55)
[2017-04-28] MEDS: levETIRAcetam 500 MG TAB PO SCH ×2 (09:56→21:34)
[2017-04-28] MEDS: carBAMazepine 200 MG TAB PO SCH ×2 (09:56→21:33)
[2017-04-28 11:27] LABS: Glucose,Whole Blood 130 mg/dL (75-99)
[2017-04-28] MEDS ORDERED: PROPOFOL 10 MG/ML 20 ML VIAL IV ONE (13:31)
[2017-04-28] MEDS ORDERED: LIDOCAINE 1% INJ 10MG/ML (20 ML MDV) ONE (13:31)
[2017-04-28] MEDS ORDERED: IV FLUID CONTINUATION 1,000 ML IV ONE (13:33)
[2017-04-28] MEDS ORDERED: DIAZEPAM 5 MG TAB PO PRN (13:41)
--- NOTE | 2017-04-28 13:44 | P.PCN ---
Date of Procedure: 04/28/17 Procedure(s) Performed: BRIEF HISTORY: Patient is a 62-year-old, pleasant, white female, scheduled for an upper endoscopy as part of evaluation of severe chest pain as well as epigastric pain for the last several months duration. She was diagnosed with pneumonia in September 2016 and developed rib fractures because of severe coughing at that time. Since then she is been having this abdominal pain and chest pain. She had a CT of the abdomen and pelvis done yesterday that showed thickening of the distal esophagus and hence he scheduled for an upper endoscopy to evaluate further. PROCEDURE PERFORMED: Esophagogastroduodenoscopy with biopsy PREOPERATIVE DIAGNOSIS: Epigastric pain /atypical chest pain. IV sedation per anesthesia. PROCEDURE: After informed consent was obtained, the patient was brought into the endoscopy unit. IV sedation was administered by Anesthesia under continuous monitoring. Initially the Olympus GIF-140 video endoscope was inserted into the mouth. Esophagus intubated without any difficulty. It was gradually advanced into the stomach and duodenum and carefully examined. The bulb and the second part of the duodenum appeared normal. The scope at this time was withdrawn to the stomach, adequately insufflated with air, and upon careful examination, mucosa of the antrum, had mild gastritis and biopsies were done from this area. The body, cardia and the fundus appeared normal. The scope was then withdrawn into the esophagus. Small hiatal hernia noted. The GE junction was located at 39 cm from the incisors. The esophagus appeared normal. There were no erosions or ulcerations seen and the patient tolerated the procedure well. IMPRESSION: 1. Mild antral gastritis. 2. Small hiatal hernia but no evidence of esophagitis or peptic ulcer disease. RECOMMENDATIONS: The findings of this examination were discussed with the patient. She was advised to follow with the biopsy results.
[2017-04-28] MEDS: DIAZEPAM 5 MG TAB PO STA ×2 (14:30→17:01)
--- NOTE | 2017-04-28 16:33 | P.PN ---
Subjective 62-year-old female patient, coming in with pain ACROSS her left lateral chest area. Apparently the patient was in the hospital back in October 2016 and she had a harsh cough related to pneumonia and she injured/cold/fractured her left rib cage area. Since then she's been having pain along the left lateral chest area. For now, the pain is still existing irritants around 5 out of 10 in severity. She is able to speak in full sentences. No hemoptysis. No pleurisy. The pain is a producible upon palpating the same area. Note that cardiology has seen the patient. EKG had shown a normal sinus rhythm without any ischemic changes. Cardiac enzymes were all negative. The patient has undergone a stress test earlier this year and that was also unremarkable. During this current admission my CT angios the chest was done and showed no acute abnormalities. It is free of any pulmonary infiltrates pneumonia. Some minimal atelectatic changes were seen in the lingula. Otherwise there is no pleural effusion. The heart was within normal and there was no evidence of any pericardial effusion. No evidence of any rib cage fractures. No alcoholism. No nausea vomiting. No significant pancreatitis. Most of any trauma or fall. No skin rashes. No shingles. The white cell count is not elevated at 4.3. D- dimer is low at 0.21. CAT scan of the head showing age-related atrophy and small vessel chronic ischemic changes without any acute intracranial process. On the patient tells that her pain has somewhat subsided. She is laying down comfortably in bed. Amylase and lipase are within normal limits. CAT scan of the abdomen showed some thickening of the distal esophageal wall. There is no any other abnormalities in the lung bases or the abdomen explaining this patient's left-sided chest wall pain. Cardiology has seen the patient and their input is appreciated. Follow pulmonary standpoint, I cannot explain this patient's pain which is very much producible upon palpating the area. An EGD is planned by gastroenterology and this will be done tomorrow. On 04/26/2017, the patient is still complaining of this nonspecific chest wall pain which is very much is reducible. She is also complaining of pain in her epigastric area and currently she is also complaining of pain in her mid abdominal area. She is about to have an EGD done today. She is on morphine for pain control when necessary basis. I do not have any clear understanding as part as the patient's symptoms knowing that her symptoms are not correlated with any pathology within the abdomen or the chest that can be identified. Objective - Vital Signs Vital signs: Vital Signs Temp 97.4 F L 04/28/17 14:12 Pulse 70 04/28/17 16:17 Resp 18 04/28/17 15:49 BP 130/72 04/28/17 14:12 Pulse Ox 96 04/28/17 14:12 Intake & Output 04/27/17 04/28/17 04/28/17 18:59 06:59 18:59 Intake Total 110 50 Balance 110 50 Weight 57.5 kg 57.5 kg Intake: IV 10 50 saline flush 10 Oral 100 Other: Voiding Method Toilet Toilet Toilet # Voids 1 1 1 - Exam Gen. appearance she is calm and comfortable likely distress. Is atraumatic normocephalic. Neck is supple and there is no JVDs no with or neck masses. Lungs are clear to auscultation. No wheezes or rhonchi any crackles. The left lateral chest wall pain is very much a producible upon palpating the lower chest border across the stomach and the splenic area extending into the left upper quadrant and epigastric area and moving laterally to the lateral chest. No deformities. No bruises. No other abnormalities noted on examination. My normal heart by normal abdomenCardiac exam revealed the PMI to be normally situated and sized. The rhythm was regular and no extrasystoles were noted during several minutes of auscultation. The first and second heart sounds were normal and physiologic splitting of the second heart sound was noted. Cardiac exam revealed the PMI to be normally situated and sized. The rhythm was regular and no extrasystoles were noted during several minutes of auscultation. The first and second heart sounds were normal and physiologic splitting of the second heart sound was noted. There were no murmurs, rubs, clicks, or gallops.Abdominal exam revealed normal bowel sounds. The abdomen was soft, non- tender, and without masses, organomegaly, or appreciable enlargement of the abdominal aorta.Examination of the extremities revealed easily palpable radial, femoral and pedal pulses. There was no cyanosis, clubbing or edema. Skin is within normal and that is no evidence of any rashes or cellulitis. Skeletal examination shows a producible pain over the left lateral chest area. Neuro is negative for any focal neurological deficits. No cranial nerve deficits. - Labs CBC & Chem 7: 04/28/17 08:54 04/28/17 08:54 Labs: Abnormal Lab Results - Last 24 Hours (Table) 04/27/17 04/27/17 04/28/17 Range/Units 17:21 20:12 07:00 RBC (3.80-5.40) m/uL Hgb (11.4-16.0) gm/dL MCV (80.0-100.0) fL Lymphocytes # (1.0-4.8) k/uL Glucose (74-99) mg/dL POC Glucose (mg/dL) 160 H 116 H 123 H (75-99) mg/dL 04/28/17 04/28/17 04/28/17 Range/Units 08:54 08:54 11:24 RBC 3.38 L (3.80-5.40) m/uL Hgb 11.0 L (11.4-16.0) gm/dL MCV 100.5 H (80.0-100.0) fL Lymphocytes # 0.5 L (1.0-4.8) k/uL Glucose 128 H (74-99) mg/dL POC Glucose (mg/dL) 130 H (75-99) mg/dL Assessment and Plan Plan: Assessment 1 left sided chest wall pain along the left lateral rib cage inferiorly and laterally and this is very much reproducible upon palpation. The pain is extremely nonspecific and is not related to any form of intra-abdominal or pulmonary or pleural space pathology. 2 previous history of pneumonia in September 2016 3 COPD by history 4 seizure disorder 5 previous history of CVA/TIA, current CAT scan is negative Plan Exact cause for the chest and abdominal pain is not known to me. The workup has been negative. CAT scan of the chest was reviewed and negative. CAT scan of the abdomen is negative. Blood work is negative. EGD will be done today. I will sign off the case and please contact me back should there be any further questions regarding the care of this patient.
--- NOTE | 2017-04-28 17:08 | P.DS ---
Providers Date of admission: 04/25/17 23:10 Expected date of discharge: 04/28/17 Attending physician: Alexis Kramer Consults: 04/26/17 12:17 Consult Physician Routine Consulting Provider: Candida Arango Consult Reason/Comments: SOB, hx of rib fracture and pneumonia Do you want consulting provider notified?: Yes 04/27/17 11:12 Consult Physician Routine Consulting Provider: Ambrocio Avina Consult Reason/Comments: possible esophagitis, left side abdominal/chest pain Do you want consulting provider notified?: Yes Primary care physician: [facility] Course: 62-year-old female who presented to the emergency room on 04/25/2017 with a chief complaint of chest pain. In the emergency room an EKG was completed which showed normal sinus rhythm. Troponins were negative. A chest x-ray was completed which was unremarkable. A CT of the chest was negative for pulmonary embolism. An MRI of the brain was also completed which was unremarkable. Apparently the patient was diagnosed with pneumonia and rib fractures in September 2016. She had a hospital admission during this time for chest pain. Since that time, the patient states she has experienced on and off chest pain and chest pressure that also radiates to her back. During that admission the patient underwent a stress test which was negative and also an echocardiogram which was unremarkable. Pulmonary was consulted who thought the patient may have pancreatitis. The CT of the abdomen was completed. The pancreas appeared normal. It did show mild wall thickening of the distal esophagus at the GE junction that could represent esophagitis, otherwise it was unremarkable. GI has been consulted and the patient is scheduled for EGD today. She remains NPO for procedure today. Patient did have some PVCs yesterday, patient asymptomatic. Magnesium and potassium within normal limits. Cardiology re-evaluated patient and troponin ordered, which were within normal limits. This morning the patient states that she is still having pain on the left side of her chest and it is worse than yesterday. She states she is having some anxiety this morning. Spoke with nursing and patient to receive a dose of Xanax. Lab work from this morning is not resulted at this time. Her vital signs remained stable. She is afebrile. She is on 2 L nasal cannula with oxygen saturation greater than 92% Pt had egd today, which showed mild gastritis. This appears to be the cause of her pain. FINAL DX Antral Gastritis Hiatal Hernia atypical chest pain, present on admission, History of pneumonia and rib fractures in September 2016 History of COPD, no evidence of acute exacerbation of COPD Unspecified seizure disorder History of TIA in January 2017 Patient Condition at Discharge: Undetermined Plan - Discharge Summary New Discharge Prescriptions: New Diazepam [Valium] 5 mg PO TID PRN #30 tab PRN Reason: Muscle Spasm Lansoprazole 30 mg PO DAILY #30 cap Continue levETIRAcetam [Keppra] 1,000 mg PO BID carBAMazepine [Epitol] 200 mg PO BID HYDROcodone/APAP 5-325MG [[place] 5-325] 1 tab PO ONCE PRN PRN Reason: Pain Discontinued ALPRAZolam [Xanax] 0.25 mg PO TID PRN PRN Reason: Anxiety Ibuprofen [Motrin] 600 mg PO Q8HR PRN #24 tab PRN Reason: Pain Acetaminophen [Tylenol] 1,000 mg PO BID PRN PRN Reason: Pain Discharge Medication List levETIRAcetam [Keppra] 1,000 mg PO BID 12/19/13 [History] carBAMazepine [Epitol] 200 mg PO BID 11/29/16 [History] HYDROcodone/APAP 5-325MG [[place] 5-325] 1 tab PO ONCE PRN 04/25/17 [History] Diazepam [Valium] 5 mg PO TID PRN #30 tab 04/28/17 [Rx] Lansoprazole 30 mg PO DAILY #30 cap 04/28/17 [Rx] Follow up Appointment(s)/Referral(s): Alexis Kramer Jr, DO [Primary Care Provider] - 1 Week Discharge Disposition: HOME SELF-CARE
[2017-04-28 17:45] LABS: Glucose,Whole Blood 153 mg/dL (75-99)
[2017-04-28 21:38] LABS: Glucose,Whole Blood 140 mg/dL (75-99)
[2017-04-29] MEDS: methylPREDNISolone SOD SUCCI 125 MG/2 ML VIAL IV SCH (05:05)
[2017-04-29] MEDS: IPRATROPIUM-ALBUTEROL 3 ML NEB INHALATION SCH (07:21)
[2017-04-29] MEDS: PANTOPRAZOLE 40 MG/10 ML VIAL IVP SCH (08:02)
[2017-04-29] MEDS: HEPARIN SODIUM,PORCINE 5,000 UNIT/ML 1 ML VIAL SQ SCH (08:02)
[2017-04-29] MEDS: levETIRAcetam 500 MG TAB PO SCH (08:02)
[2017-04-29] MEDS: ASPIRIN 325 MG TAB PO SCH (08:02)
[2017-04-29] MEDS: carBAMazepine 200 MG TAB PO SCH (08:02)
[2017-04-29] MEDS: INSULIN LISPRO (humaLOG) 300 UNIT/3 ML VIAL SQ SCH (08:03)
[2017-04-29] MEDS: LACTATED RINGERS 1,000 ML IV SCH (08:03)
[2017-04-29 08:13] LABS: Glucose,Whole Blood 127 mg/dL (75-99)
[2017-04-29 09:05] VITALS: BP 120/61; PULSE 76; RESP 18; TEMP 98.1
== END 2017-04-29 10:35 | disposition home or self-care (01) ==
LOC: SUPCPDRO 20:19 → EC 20:19 → 3OBS 23:10 → 6SEL 04-26 01:38 → 5MS5E 04-26 21:49
PROVIDERS: ADMIT Family Medicine; ATTEND Family Medicine
DX: R07.89 Other chest pain (principal); R06.02 Shortness of breath; K29.60 Other gastritis without bleeding; K44.9 Diaphragmatic hernia without obstruction or gangrene; F41.9 Anxiety disorder, unspecified; J44.9 Chronic obstructive pulmonary disease, unspecified; G40.909 Epilepsy, unspecified, not intractable, without status epilepticus; I49.3 Ventricular premature depolarization; K20.9 Esophagitis, unspecified; D64.9 Anemia, unspecified; Z86.73 Personal history of transient ischemic attack (TIA), and cerebral infarction without residual deficits; Z87.01 Personal history of pneumonia (recurrent); Z79.899 Other long term (current) drug therapy; K29.50 Unspecified chronic gastritis without bleeding
CPT/HCPCS: 36415; 43239; 70450; 71020; 71275; 74177; 80048; 80053; 80061; 82150; 82550; 82553; 82565; 83690; 83735; 83880; 84484; 84520; 85025; 85049; 85379; 85610; 85730; 88305; 88342; 93005; 93306; 94640; 96365; 96366; 96372; 96375; 96376; 99291

== ENCOUNTER 2017-05-13 18:14 | Emergency (ER) | payer OTHER ==
[2017-05-13] MEDS ORDERED: ALBUTEROL NEBULIZED 2.5 MG/3 ML INHALATION STA (18:15)
[2017-05-13] MEDS ORDERED: IPRATROPIUM 0.5 MG/2.5 ML NEBU INHALATION STA (18:15)
[2017-05-13] MEDS ORDERED: SODIUM CHLORIDE 0.9% 1,000 ML IV STA (18:15)
[2017-05-13] MEDS ORDERED: methylPREDNISolone SOD SUCCI 125 MG/2 ML VIAL IV STA (18:15)
[2017-05-13 18:25] VITALS: TEMP 99.2
[2017-05-13] MEDS ORDERED: LORazepam 2 MG/ML INJ IV STA (18:30)
[2017-05-13] MEDS: MORPHINE SULFATE 2 MG/ML SYRINGE IVP STA ×2 (18:40→19:14)
[2017-05-13 18:47] LABS: Aty Lym Flag Slight; CH 32.1; CHCM 33.5; HCT 32.6 % (34.0-46.0); HDW 2.32; HGB 10.9 gm/dL (11.4-16.0); MCH 32.2 pg (25.0-35.0); MCHC 33.5 g/dL (31.0-37.0); MCV 96.3 fL (80.0-100.0); Mean Platelet Volume 6.6; RBC 3.38 m/uL (3.80-5.40); RDW 12.6 % (11.5-15.5); WBC 4.7 k/uL (3.8-10.6); WBC (Perox) 4.72
[2017-05-13 18:49] LABS: ALT 31 U/L (9-52); AST 22 U/L (14-36); Alkaline Phosphatase 79 U/L (38-126); Anion Gap 10 mmol/L; Blood Urea Nitrogen 9 mg/dL (7-17); Calcium 8.1 mg/dL (8.4-10.2); Carbon Dioxide 19 mmol/L (22-30); Chloride 107 mmol/L (98-107); Glucose 106 mg/dL (74-99); Magnesium 1.9 mg/dL (1.6-2.3); Non-African American GFR(MDRD) >60 (>60 ml/min/1.73 sqM); Potassium 3.5 mmol/L (3.5-5.1); Sodium 136 mmol/L (137-145); Total Bilirubin 0.2 mg/dL (0.2-1.3); Total Protein 6.5 g/dL (6.3-8.2)
[2017-05-13 19:01] LABS: Creatine Kinase 66 U/L (30-135)
--- NOTE | 2017-05-13 19:01 | XR ---
EXAMINATION TYPE: XR chest 1V portable DATE OF EXAM: 05/13/2017 COMPARISON: April 25, 2017 HISTORY: Chest pain TECHNIQUE: Single frontal view of the chest is obtained. FINDINGS: There is no focal air space opacity, pleural effusion, or pneumothorax seen. The cardiac silhouette size is within normal limits. The osseous structures are intact. IMPRESSION: No acute process.
[2017-05-13 19:07] LABS: Partial Thromboplastin Time 22.6 sec (22.0-30.0); Prothrombin Time 10.6 sec (9.0-12.0)
[2017-05-13 19:14] LABS: Creatine Kinase MB 0.7 ng/mL (0.0-2.4); Troponin I <0.012 ng/mL (0.000-0.034)
[2017-05-13 19:32] LABS: Add Differential Manual Differential
[2017-05-13 19:38] LABS: Manual Review Performed; Nucleated Red Blood Cells 0 /100 WBC (0-0); Total Cells Counted 100
--- NOTE | 2017-05-13 19:53 | ED ---
General Adult HPI - General Chief complaint: Chest Pain Stated complaint: EMERSON Time Seen by Provider: 05/13/17 18:15 Source: patient, RN notes reviewed, old records reviewed Mode of arrival: EMS Limitations: no limitations - History of Present Illness Initial comments: This is a 62-year-old female year for some evaluation of chest pain chest pain and back pain. Patient has medical history of COPD. Episodes of pneumonia. Multiple recent hospital and ER visits. Patient states at this time she has no fevers no cough no congestion. States her chest pain is recurrent and has been existing ever since she had her episode of pneumonia. Patient takes nothing at home for pain currently - Related Data Home Medications Medication Instructions Recorded Confirmed levETIRAcetam [Keppra] 1,000 mg PO BID 12/19/13 05/13/17 carBAMazepine [Epitol] 200 mg PO BID 11/29/16 05/13/17 Bisoprolol-Hctz 10-6.25 mg [Ziac 1 tab PO DAILY 05/13/17 05/13/17 10-6.25] Previous Rx's Medication Instructions Recorded Diazepam [Valium] 5 mg PO TID PRN #30 tab 04/28/17 Lansoprazole 30 mg PO DAILY #30 cap 04/28/17 Allergies Allergy/AdvReac Type Severity Reaction Status Date / Time No Known Allergies Allergy Verified 05/13/17 18:42 Review of Systems ROS Statement: Those systems with pertinent positive or pertinent negative responses have been documented in the HPI. ROS Other: All systems not noted in ROS Statement are negative. Past Medical History Past Medical History: COPD, CVA/TIA, Pneumonia, Seizure Disorder Additional Past Medical History / Comment(s): Seizures/epilepsy and the patient' s left bouts of seizure was more than 6 years ago, COPD, chronic anemia History of Any Multi-Drug Resistant Organisms: None Reported Past Surgical History: No Surgical Hx Reported Additional Past Surgical History / Comment(s): Mediastinoscopy for a mediastinal lymph node enlargement Past Anesthesia/Blood Transfusion Reactions: No Reported Reaction Past Psychological History: Anxiety Smoking Status: Never smoker Past Alcohol Use History: None Reported Past Drug Use History: None Reported - Past Family History Mother Family Medical History: No Reported History General Exam Limitations: no limitations General appearance: alert, in no apparent distress Head exam: Present: atraumatic, normocephalic, normal inspection Eye exam: Present: normal appearance, PERRL, EOMI. Absent: scleral icterus, conjunctival injection, periorbital swelling ENT exam: Present: normal exam, mucous membranes moist Neck exam: Present: normal inspection. Absent: tenderness, meningismus, lymphadenopathy Respiratory exam: Present: normal lung sounds bilaterally. Absent: respiratory distress, wheezes, rales, rhonchi, stridor Cardiovascular Exam: Present: regular rate, normal rhythm, normal heart sounds. Absent: systolic murmur, diastolic murmur, rubs, gallop, clicks GI/Abdominal exam: Present: soft, normal bowel sounds. Absent: distended, tenderness, guarding, rebound, rigid Extremities exam: Present: normal inspection, full ROM, normal capillary refill. Absent: tenderness, pedal edema, joint swelling, calf tenderness Back exam: Present: normal inspection Neurological exam: Present: alert, oriented X3, CN II-XII intact Psychiatric exam: Present: normal affect, normal mood Skin exam: Present: warm, dry, intact, normal color. Absent: rash Course Vital Signs 05/13/17 05/13/17 05/13/17 18:21 18:43 18:51 Temperature 99.2 F Pulse Rate 82 95 80 Respiratory 24 17 Rate Blood Pressure 142/69 142/69 O2 Sat by Pulse 99 100 Oximetry 05/13/17 19:22 Temperature Pulse Rate 90 Respiratory 16 Rate Blood Pressure 149/73 O2 Sat by Pulse 100 Oximetry - Reevaluation(s) Reevaluation #1: 05/13/17 20:14 Patient at this point states her chest pain and shortness of breath or significantly improved Reevaluation #2: 05/13/17 20:14 Patient admits to seeing her primary doctor earlier today doctor did tell patient that he thinks she has some anxiety and there is nothing wrong with her EKG Findings - EKG Comments: EKG Findings:: EKG shows normal sinus rhythm rate of 87, [place] 176, QRS 72, QTC 425 Medical Decision Making - Medical Decision Making 62 female the ER for evaluation of pain. Acute on chronic pain. Chronic pain in nature chest x-ray lab work is all normal. Patient will be discharged home - Lab Data Result diagrams: 05/13/17 18:30 05/13/17 18:30 Lab Results 05/13/17 05/13/17 05/13/17 Range/Units 18:30 18:30 18:30 WBC 4.7 (3.8-10.6) k/uL RBC 3.38 L (3.80-5.40) m/uL Hgb 10.9 L (11.4-16.0) gm/dL Hct 32.6 L (34.0-46.0) % MCV 96.3 (80.0-100.0) fL MCH 32.2 (25.0-35.0) pg MCHC 33.5 (31.0-37.0) g/dL RDW 12.6 (11.5-15.5) % Plt Count 331 (150-450) k/uL Neutrophils % (Manual) 49 % Lymphocytes % (Manual) 37 % Monocytes % (Manual) 13 % Eosinophils % (Manual) 1 % Neutrophils # (Manual) 2.30 (1.3-7.7) k/uL Lymphocytes # (Manual) 1.74 (1.0-4.8) k/uL Monocytes # (Manual) 0.61 (0-1.0) k/uL Eosinophils # (Manual) 0.05 (0-0.7) k/uL Nucleated RBCs 0 (0-0) /100 WBC Manual Slide Review Performed PT (9.0-12.0) sec INR (<1.2) APTT (22.0-30.0) sec Sodium 136 L (137-145) mmol/L Potassium 3.5 (3.5-5.1) mmol/L Chloride 107 (98-107) mmol/L Carbon Dioxide 19 L (22-30) mmol/L Anion Gap 10 mmol/L BUN 9 (7-17) mg/dL Creatinine 0.70 (0.52-1.04) mg/dL Est GFR (MDRD) Af Amer >60 (>60 ml/min/1.73 sqM) Est GFR (MDRD) Non-Af >60 (>60 ml/min/1.73 sqM) Glucose 106 H (74-99) mg/dL Calcium 8.1 L (8.4-10.2) mg/dL Magnesium 1.9 (1.6-2.3) mg/dL Total Bilirubin 0.2 (0.2-1.3) mg/dL AST 22 (14-36) U/L ALT 31 (9-52) U/L Alkaline Phosphatase 79 (38-126) U/L Total Creatine Kinase 66 (30-135) U/L CK-MB (CK-2) 0.7 (0.0-2.4) ng/mL CK-MB (CK-2) Rel Index 1.1 Troponin I <0.012 (0.000-0.034) ng/mL NT-Pro-B Natriuret Pep pg/mL Total Protein 6.5 (6.3-8.2) g/dL Albumin 3.7 (3.5-5.0) g/dL 05/13/17 05/13/17 Range/Units 18:30 18:30 WBC (3.8-10.6) k/uL RBC (3.80-5.40) m/uL Hgb (11.4-16.0) gm/dL Hct (34.0-46.0) % MCV (80.0-100.0) fL MCH (25.0-35.0) pg MCHC (31.0-37.0) g/dL RDW (11.5-15.5) % Plt Count (150-450) k/uL Neutrophils % (Manual) % Lymphocytes % (Manual) % Monocytes % (Manual) % Eosinophils % (Manual) % Neutrophils # (Manual) (1.3-7.7) k/uL Lymphocytes # (Manual) (1.0-4.8) k/uL Monocytes # (Manual) (0-1.0) k/uL Eosinophils # (Manual) (0-0.7) k/uL Nucleated RBCs (0-0) /100 WBC Manual Slide Review PT 10.6 (9.0-12.0) sec INR 1.0 (<1.2) APTT 22.6 (22.0-30.0) sec Sodium (137-145) mmol/L Potassium (3.5-5.1) mmol/L Chloride (98-107) mmol/L Carbon Dioxide (22-30) mmol/L Anion Gap mmol/L BUN (7-17) mg/dL Creatinine (0.52-1.04) mg/dL Est GFR (MDRD) Af Amer (>60 ml/min/1.73 sqM) Est GFR (MDRD) Non-Af (>60 ml/min/1.73 sqM) Glucose (74-99) mg/dL Calcium (8.4-10.2) mg/dL Magnesium (1.6-2.3) mg/dL Total Bilirubin (0.2-1.3) mg/dL AST (14-36) U/L ALT (9-52) U/L Alkaline Phosphatase (38-126) U/L Total Creatine Kinase (30-135) U/L CK-MB (CK-2) (0.0-2.4) ng/mL CK-MB (CK-2) Rel Index Troponin I (0.000-0.034) ng/mL NT-Pro-B Natriuret Pep 120 pg/mL Total Protein (6.3-8.2) g/dL Albumin (3.5-5.0) g/dL - Radiology Data Radiology results: report reviewed (Chest x-ray is negative for acute disease), image reviewed Disposition Clinical Impression: Chest pain, Anxiety Disposition: HOME SELF-CARE Condition: Good Instructions: Chest Pain (ED) Referrals: Alexis Kramer Jr, [Primary Care Provider] - 1-2 days
[2017-05-13 20:14] VITALS: BP 128/61; PULSE 89; RESP 20
== END 2017-05-13 20:14 | disposition home or self-care (01) ==
LOC: EC 18:14
DX: R07.9 Chest pain, unspecified (principal); F41.9 Anxiety disorder, unspecified; G40.909 Epilepsy, unspecified, not intractable, without status epilepticus; J44.9 Chronic obstructive pulmonary disease, unspecified; Z87.01 Personal history of pneumonia (recurrent); Z86.2 Personal history of diseases of the blood and blood-forming organs and certain disorders involving the immune mechanism; Z79.899 Other long term (current) drug therapy
CPT/HCPCS: 99285 ×2; 96374 ×2; 96375 ×3; 96361 ×2; 36415; 94644; 93005; 83880; 80053; 82550; 82553; 83735; 84484; 85025; 85610; 85730; 71010; J2060; J2930; J2270

== ENCOUNTER 2017-05-18 23:48 | Emergency (ER) | payer OTHER ==
[2017-05-19] MEDS ORDERED: ASPIRIN 81 MG PO STA (00:13)
[2017-05-19] MEDS ORDERED: NITROGLYCERIN SL TABS 0.4 MG TAB SUBLINGUAL STA ×3 (00:13)
[2017-05-19] MEDS ORDERED: RX INFO: IV CONTRAST WAS GIVEN 1 EACH MISC MISCELLANE PRN (00:14)
[2017-05-19] MEDS ORDERED: MAG HYDROX/AL HYDROX/SIMETH 30 ML CUP PO PRN (00:18)
[2017-05-19] MEDS ORDERED: LIDOCAINE VISCOUS 2% 15 ML CUP MUCOUS MEM ONE (00:18)
[2017-05-19] MEDS ORDERED: FAMOTIDINE 20 MG/2 ML VIAL IV STA (00:18)
--- NOTE | 2017-05-19 00:25 | ED ---
General Adult HPI - General Source: patient, EMS Mode of arrival: EMS Limitations: no limitations <Diego Rodriguez - Last Filed: 05/19/17 00:56> <Natalya Wagner - Last Filed: 05/19/17 02:31> - General Chief complaint: Recheck/Abnormal Lab/Rx Stated complaint: Hypertension Time Seen by Provider: 05/19/17 00:03 - History of Present Illness Initial comments: Patient is a 62-year-old female presents with a chief complaint of epigastric pain and back pain. Patient states that this started today, and is episodic in nature. Patient states that she is repeatedly taking her blood pressure and that it has been labile. Patient says that she was recently diagnosed with GERD , hypertension. Patient cannot identify any inciting incidents. Patient cannot identify any aggravating or alleviating factors. Patient states that when she is having an episode of epigastric pain and back pain she gets up and walks around and it eventually goes away after about a half hour. Patient did not have any prior episodes. She does not have any other significant cardiac history. She does not have a significant family cardiac history. She denies being diabetic. (Diego Rodriguez) - Related Data Home Medications Medication Instructions Recorded Confirmed levETIRAcetam [Keppra] 1,000 mg PO BID 12/19/13 05/13/17 carBAMazepine [Epitol] 200 mg PO BID 11/29/16 05/13/17 Bisoprolol-Hctz 10-6.25 mg [Ziac 1 tab PO DAILY 05/13/17 05/13/17 10-6.25] Previous Rx's Medication Instructions Recorded Diazepam [Valium] 5 mg PO TID PRN #30 tab 04/28/17 Lansoprazole 30 mg PO DAILY #30 cap 04/28/17 Allergies Allergy/AdvReac Type Severity Reaction Status Date / Time No Known Allergies Allergy Verified 05/13/17 18:42 Review of Systems ROS Other: All systems not noted in ROS Statement are negative. Constitutional: Denies: fever, chills Eyes: Denies: vision change ENT: Denies: congestion Respiratory: Denies: cough Cardiovascular: Denies: chest pain Endocrine: Denies: fatigue Gastrointestinal: Reports: abdominal pain. Denies: nausea, vomiting Genitourinary: Denies: dysuria Musculoskeletal: Reports: back pain Skin: Denies: rash Neurological: Reports: headache <Diego Rodriguez - Last Filed: 05/19/17 00:56> ROS Other: All systems not noted in ROS Statement are negative. <Natalya Wagner - Last Filed: 05/19/17 02:31> ROS Statement: Those systems with pertinent positive or pertinent negative responses have been documented in the HPI. Past Medical History Past Medical History: COPD, CVA/TIA, Hypertension, Pneumonia, Seizure Disorder Additional Past Medical History / Comment(s): Seizures/epilepsy and the patient' s left bouts of seizure was more than 6 years ago, COPD, chronic anemia History of Any Multi-Drug Resistant Organisms: None Reported Past Surgical History: No Surgical Hx Reported Additional Past Surgical History / Comment(s): Mediastinoscopy for a mediastinal lymph node enlargement Past Anesthesia/Blood Transfusion Reactions: No Reported Reaction Past Psychological History: Anxiety Smoking Status: Never smoker Past Alcohol Use History: None Reported Past Drug Use History: None Reported - Past Family History Mother Family Medical History: No Reported History <Diego Rodriguez - Last Filed: 05/19/17 00:56> General Exam Limitations: no limitations General appearance: alert, in no apparent distress, anxious Head exam: Present: atraumatic, normocephalic Neck exam: Present: normal inspection Respiratory exam: Present: normal lung sounds bilaterally Cardiovascular Exam: Present: regular rate, normal rhythm, normal heart sounds GI/Abdominal exam: Present: soft. Absent: distended, tenderness Rectal exam: Present: deferred Extremities exam: Present: normal inspection Back exam: Present: tenderness (Patient has tenderness to palpation along her upper back, mostly in bilateral shoulders.), paraspinal tenderness Neurological exam: Present: alert, oriented X3 Psychiatric exam: Present: normal affect, normal mood, anxious Skin exam: Present: warm, dry, intact <Diego Rodriguez - Last Filed: 05/19/17 00:56> Medical Decision Making <Diego Rodriguez - Last Filed: 05/19/17 00:56> - Lab Data Result diagrams: 05/19/17 00:54 05/19/17 00:54 - Radiology Data Radiology results: report reviewed, image reviewed <Natalya Wagner - Last Filed: 05/19/17 02:31> - Medical Decision Making Patient presents with a chief complaint of headache, abdominal pain, and back pain. She has a significant medical history of GERD, and hypertension. Patient states that her blood pressure has been labile, in the emergency department her blood pressure is 177/80. At this time there is concern for GERD versus aortic dissection. On initial evaluation, patient is hypertensive otherwise her vital signs are stable. Patient will have basic and cardiac lab work, she'll be given nitroglycerin and aspirin. Patient will be given Maalox, Pepcid, and viscous lidocaine. EKG performed at 12:35 AM shows normal sinus rhythm with a rate of 67 bpm. EKG is otherwise nonspecific. Segments appear to be within normal limits. 12:57 PM This case was discussed with Natalya Dan who will assume care of this patient. the case has been discussed in detail. patient remains stable in the ED. (Diego Rodriguez) 62-year-old female patient presented for evaluation of right upper back pain and midepigastric pain. Lab work was reviewed and was unremarkable. Labs are negative. Amylase and lipase are negative. CT of the thoracic aorta was obtained and showed no evidence of dissection or aneurysm. Chest x-ray was negative for any active cardiopulmonary disease. Patient did receive IV fluids and GI cocktail which she states improved her symptoms. She also received nitroglycerin however she states that this didn't change her pain in any way. Patient is reporting continued right upper back pain, states that she has been diagnosed with muscle spasm to this area in the past. Patient is very tender to palpation in that area. States that she does have Valium at home which she can take for this. Patient be discharged at this time to follow-up with her primary care physician in the next 1-2 days. Did inform her that an ultrasound of the upper abdomen may be warranted however her labs at this time are negative so she can get this as an outpatient. Patient verbalized understanding and agreed with this plan. (Natalya Wagner) - Lab Data Lab Results 05/19/17 05/19/17 05/19/17 Range/Units 00:54 00:54 00:54 WBC 3.9 (3.8-10.6) k/uL RBC 3.43 L (3.80-5.40) m/uL Hgb 11.0 L (11.4-16.0) gm/dL Hct 32.7 L (34.0-46.0) % MCV 95.4 (80.0-100.0) fL MCH 32.1 (25.0-35.0) pg MCHC 33.7 (31.0-37.0) g/dL RDW 12.8 (11.5-15.5) % Plt Count 327 (150-450) k/uL Neutrophils % 51 % Lymphocytes % 27 % Monocytes % 15 % Eosinophils % 3 % Basophils % 1 % Neutrophils # 2.0 (1.3-7.7) k/uL Lymphocytes # 1.1 (1.0-4.8) k/uL Monocytes # 0.6 (0-1.0) k/uL Eosinophils # 0.1 (0-0.7) k/uL Basophils # 0.0 (0-0.2) k/uL Sodium 133 L (137-145) mmol/L Potassium 4.0 (3.5-5.1) mmol/L Chloride 102 (98-107) mmol/L Carbon Dioxide 23 (22-30) mmol/L Anion Gap 8 mmol/L BUN 8 (7-17) mg/dL Creatinine 0.70 (0.52-1.04) mg/dL Est GFR (MDRD) Af Amer >60 (>60 ml/min/1.73 sqM) Est GFR (MDRD) Non-Af >60 (>60 ml/min/1.73 sqM) Glucose 89 (74-99) mg/dL Calcium 8.5 (8.4-10.2) mg/dL Magnesium 2.1 (1.6-2.3) mg/dL Total Bilirubin 0.2 (0.2-1.3) mg/dL AST 21 (14-36) U/L ALT 34 (9-52) U/L Alkaline Phosphatase 79 (38-126) U/L Troponin I (0.000-0.034) ng/mL NT-Pro-B Natriuret Pep 151 pg/mL Total Protein 6.3 (6.3-8.2) g/dL Albumin 3.7 (3.5-5.0) g/dL Amylase (30-110) U/L Lipase (23-300) U/L 05/19/17 05/19/17 Range/Units 00:54 00:54 WBC (3.8-10.6) k/uL RBC (3.80-5.40) m/uL Hgb (11.4-16.0) gm/dL Hct (34.0-46.0) % MCV (80.0-100.0) fL MCH (25.0-35.0) pg MCHC (31.0-37.0) g/dL RDW (11.5-15.5) % Plt Count (150-450) k/uL Neutrophils % % Lymphocytes % % Monocytes % % Eosinophils % % Basophils % % Neutrophils # (1.3-7.7) k/uL Lymphocytes # (1.0-4.8) k/uL Monocytes # (0-1.0) k/uL Eosinophils # (0-0.7) k/uL Basophils # (0-0.2) k/uL Sodium (137-145) mmol/L Potassium (3.5-5.1) mmol/L Chloride (98-107) mmol/L Carbon Dioxide (22-30) mmol/L Anion Gap mmol/L BUN (7-17) mg/dL Creatinine (0.52-1.04) mg/dL Est GFR (MDRD) Af Amer (>60 ml/min/1.73 sqM) Est GFR (MDRD) Non-Af (>60 ml/min/1.73 sqM) Glucose (74-99) mg/dL Calcium (8.4-10.2) mg/dL Magnesium (1.6-2.3) mg/dL Total Bilirubin (0.2-1.3) mg/dL AST (14-36) U/L ALT (9-52) U/L Alkaline Phosphatase (38-126) U/L Troponin I <0.012 (0.000-0.034) ng/mL NT-Pro-B Natriuret Pep pg/mL Total Protein (6.3-8.2) g/dL Albumin (3.5-5.0) g/dL Amylase 63 (30-110) U/L Lipase 128 (23-300) U/L - Radiology Data Two-view x-ray of the chest shows no heart failure nor confluent pneumonic infiltrate. Heart size is normal. Costophrenic angles are clear. The bony thorax is intact. Impression by Dr. Dutta shows no active cardiopulmonary disease. No change. CT of the thorax, abdomen, and pelvis was performed with IV contrast. Report reviewed in its entirety. Conclusion by Dr. Dutta shows normal CT angiogram of the thoracic and abdominal aorta. No evidence of aneurysm or dissection. No evidence of stenosis. No evidence of pulmonary embolus and. Stable small nonspecific mediastinal lymph nodes compared to 04/25/2017. (Natalya Wagner) Disposition <Diego Rodriguez - Last Filed: 05/19/17 00:56> Time of Disposition: 02:20 <Natalya Wagner - Last Filed: 05/19/17 02:31> Clinical Impression: Muscle spasm of right shoulder, Abdominal pain Disposition: HOME SELF-CARE Condition: Good Instructions: Abdominal Pain (ED), Muscle Spasm (ED) Additional Instructions: Follow-up with your primary care physician for ultrasound of the abdomen. Take medications as directed. Return here immediately for any new, worsening, or concerning symptoms. Referrals: Alexis Kramer Jr, DO [Primary Care Provider] - 1-2 days
[2017-05-19 01:02] LABS: Basophils % (A) 1 %; CH 33.3; CHCM 35.1; Eosinophils # (A) 0.1 k/uL (0-0.7); Eosinophils % (A) 3 %; HCT 32.7 % (34.0-46.0); HDW 2.41; Luc # (Auto) 0.14; Luc % (Auto) 4; Lymphocytes # (A) 1.1 k/uL (1.0-4.8); Lymphocytes % (A) 27 %; MCH 32.1 pg (25.0-35.0); MCHC 33.7 g/dL (31.0-37.0); MCV 95.4 fL (80.0-100.0); Mean Platelet Volume 6.9; Monocytes # (A) 0.6 k/uL (0-1.0); Monocytes % (A) 15 %; Neutrophils % (A) 51 %; RBC 3.43 m/uL (3.80-5.40); RDW 12.8 % (11.5-15.5); WBC 3.9 k/uL (3.8-10.6); WBC (Perox) 3.94
[2017-05-19 01:13] LABS: ALT 34 U/L (9-52); AST 21 U/L (14-36); Alkaline Phosphatase 79 U/L (38-126); Anion Gap 8 mmol/L; Blood Urea Nitrogen 8 mg/dL (7-17); Calcium 8.5 mg/dL (8.4-10.2); Carbon Dioxide 23 mmol/L (22-30); Chloride 102 mmol/L (98-107); Glucose 89 mg/dL (74-99); Magnesium 2.1 mg/dL (1.6-2.3); Non-African American GFR(MDRD) >60 (>60 ml/min/1.73 sqM); Sodium 133 mmol/L (137-145); Total Bilirubin 0.2 mg/dL (0.2-1.3); Total Protein 6.3 g/dL (6.3-8.2)
--- NOTE | 2017-05-19 01:19 | XR ---
EXAMINATION TYPE: XR chest 2V DATE OF EXAM: 05/19/2017 COMPARISON: 05/13/2017 HISTORY: Chest pain TECHNIQUE: Frontal and lateral views of the chest are obtained. FINDINGS: There is no heart failure nor confluent pneumonic infiltrate. Heart size is normal. Costop hrenic angles are clear. The bony thorax is intact. IMPRESSION: No active cardiopulmonary disease. No change.
--- NOTE | 2017-05-19 01:37 | CT ---
EXAMINATION TYPE: CT angio thoracic/abd aorta DATE OF EXAM: 05/19/2017 COMPARISON: NONE HISTORY: chest pain, back pain CT DLP: 477.60 mGycm. Automated Exposure Control for Dose Reduction was Utilized. CONTRAST: CT scan of the thorax, abdomen and pelvis is performed with IV Contrast, patient injected with 100 mL of Omnipaque 350. There are 3-D post processed images. FINDINGS: The lungs are clear of infiltrate. There is no pleural effusion. Heart size is normal. There is no pe ricardial effusion. Ascending aorta measures 3.2 cm. There is no evidence of aortic dissection. Abdominal aorta is normal size. There is patency of the superior mesenteric artery and the celiac art mian. There is wide patency of the iliac arteries. There is wide patency of the left and right renal a rteries. I see no filling defects in the pulmonary arteries. There are no hilar masses. The liver spleen pancreas gallbladder appear normal. Bile ducts are not dilated. There is no retroper itoneal adenopathy. I see no intestinal wall thickening. Bladder distends smoothly. CONCLUSION: Normal CT angiogram of the thoracic and abdominal aorta. No evidence of aneurysm or dissection. No ev idence of stenosis. No evidence of pulmonary embolism. Stable small nonspecific mediastinal lymph nod es compared to 04/25/2017.
[2017-05-19 01:56] VITALS: RESP 18
[2017-05-19 02:04] LABS: Amylase 63 U/L (30-110)
[2017-05-19] MEDS ORDERED: CYCLOBENZAPRINE 10 MG TAB PO STA (02:21)
[2017-05-19 02:43] VITALS: BP 155/76; PULSE 69; TEMP 98.3
== END 2017-05-19 02:45 | disposition home or self-care (01) ==
LOC: EC 23:48
DX: R10.13 Epigastric pain (principal); M62.838 Other muscle spasm; M54.9 Dorsalgia, unspecified; I10 Essential (primary) hypertension; G40.909 Epilepsy, unspecified, not intractable, without status epilepticus; Z79.899 Other long term (current) drug therapy
CPT/HCPCS: 99284 ×2; 96374 ×2; 36415; 93005; 83880; 80053; 82150; 83690; 83735; 84484; 85025; 71020; 75635; 71275; Q9967

== ENCOUNTER 2017-05-25 00:01 | Emergency (ER) | payer OTHER ==
[2017-05-25 00:24] VITALS: RESP 18; TEMP 98.8
[2017-05-25] MEDS ORDERED: SODIUM CHLORIDE 0.9% 1,000 ML IV STA ×2 (00:34)
[2017-05-25] MEDS ORDERED: ACETAMINOPHEN TAB 500 MG TAB PO STA (00:34)
[2017-05-25] MEDS ORDERED: METOCLOPRAMIDE 5 MG/ML 2 ML VIAL IVP STA (00:34)
[2017-05-25] MEDS ORDERED: diphenhydrAMINE 50 MG/ML 1 ML VIAL IVP STA (00:34)
[2017-05-25] MEDS ORDERED: ORPHENADRINE 30 MG/ML 2 ML VIAL IVP STA (00:34)
[2017-05-25] MEDS ORDERED: RX INFO: IV CONTRAST WAS GIVEN 1 EACH MISC MISCELLANE PRN (00:35)
--- NOTE | 2017-05-25 00:58 | ED ---
Headache HPI - General Chief Complaint: Headache Stated Complaint: high BP Time Seen by Provider: 05/25/17 00:04 Source: RN notes reviewed, old records reviewed Mode of arrival: EMS Limitations: no limitations - History of Present Illness Initial Comments: 62-year-old female presents emergency Department via EMS chief complaint of fluctuations in her blood pressure throughout the past day as well as and headache. She reports that she took Tylenol twice today but that did not help with her headache. She reports is one of the worse headache she's had. Patient states that her blood pressure dropped from 70/40, and would fluctuate 150/90. Patient states that she started on a new blood pressure medicine by her primary care provider. Lj history of seizure disorder, muscle spasms, and acid reflux. Patient states that she just did not feel right ankle x-ray did come to the emergency department. She denies any neck pain, chest pain, shortness of breath, abdominal pain, nausea or vomiting. Denies any vision changes. Denies any falls or trauma to her head or neck. - Related Data Home Medications Medication Instructions Recorded Confirmed levETIRAcetam [Keppra] 1,000 mg PO BID 12/19/13 05/13/17 carBAMazepine [Epitol] 200 mg PO BID 11/29/16 05/13/17 Bisoprolol-Hctz 10-6.25 mg [Ziac 1 tab PO DAILY 05/13/17 05/13/17 10-6.25] Previous Rx's Medication Instructions Recorded Diazepam [Valium] 5 mg PO TID PRN #30 tab 04/28/17 Lansoprazole 30 mg PO DAILY #30 cap 04/28/17 Allergies Allergy/AdvReac Type Severity Reaction Status Date / Time No Known Allergies Allergy Verified 05/25/17 00:22 Review of Systems ROS Statement: Those systems with pertinent positive or pertinent negative responses have been documented in the HPI. ROS Other: All systems not noted in ROS Statement are negative. Past Medical History Past Medical History: COPD, CVA/TIA, Hypertension, Pneumonia, Seizure Disorder Additional Past Medical History / Comment(s): Seizures/epilepsy and the patient' s left bouts of seizure was more than 6 years ago, COPD, chronic anemia History of Any Multi-Drug Resistant Organisms: None Reported Past Surgical History: No Surgical Hx Reported Additional Past Surgical History / Comment(s): Mediastinoscopy for a mediastinal lymph node enlargement Past Anesthesia/Blood Transfusion Reactions: No Reported Reaction Past Psychological History: Anxiety Smoking Status: Never smoker Past Alcohol Use History: None Reported Past Drug Use History: None Reported - Past Family History Mother Family Medical History: No Reported History General Exam - General Exam Comments Initial Comments: Well-appearing alert and oriented 62-year-old female. No distress. Limitations: no limitations General appearance: alert, in no apparent distress Head exam: Present: atraumatic, normocephalic, normal inspection Eye exam: Present: normal appearance, PERRL, EOMI. Absent: scleral icterus, conjunctival injection, periorbital swelling ENT exam: Present: normal exam, mucous membranes moist Neck exam: Present: normal inspection. Absent: tenderness, meningismus, lymphadenopathy Respiratory exam: Present: normal lung sounds bilaterally. Absent: respiratory distress, wheezes, rales, rhonchi, stridor Cardiovascular Exam: Present: regular rate, normal rhythm, normal heart sounds. Absent: systolic murmur, diastolic murmur, rubs, gallop, clicks GI/Abdominal exam: Present: soft, normal bowel sounds. Absent: distended, tenderness, guarding, rebound, rigid Extremities exam: Present: normal inspection, full ROM, normal capillary refill. Absent: tenderness, pedal edema, joint swelling, calf tenderness Back exam: Present: normal inspection Neurological exam: Present: alert, oriented X3, CN II-XII intact, normal gait Psychiatric exam: Present: normal affect, normal mood Skin exam: Present: warm, dry, intact, normal color. Absent: rash Course Vital Signs 05/25/17 05/25/17 05/25/17 00:22 00:55 02:13 Temperature 98.8 F Pulse Rate 58 L 63 68 Respiratory 18 18 18 Rate Blood Pressure 157/72 147/65 143/65 O2 Sat by Pulse 99 99 97 Oximetry Medical Decision Making - Medical Decision Making 8-year-old feel presents emergency Department with changes in her blood pressure as well as headache. Upon arriving to emergency department blood pressure is 156/90. Patient reports this headache is worse she's had. Patient' s given IV fluids, CBC and CMP obtained. She does have some hyponatremia. Patient was informed of this. Patient received CT with and without contrast of the brain. CT was unremarkable for any abnormalities. Patient was given Reglan Benadryl and Norflex and Tylenol for headache. She was reevaluated states that her headache is diminishing at this time. Discussed all these findings with the patient. Patient feels well enough to be discharged home. Discussed calling her primary care provider and checking recalibration of her blood pressure machine at home. Discussed return to emergency department if any alarming signs or symptoms occur. Patient agrees to treatment plan will comply. - Lab Data Result diagrams: 05/25/17 00:50 05/25/17 00:50 Lab Results 05/25/17 05/25/17 Range/Units 00:50 00:50 WBC 3.6 L (3.8-10.6) k/uL RBC 3.17 L (3.80-5.40) m/uL Hgb 10.2 L (11.4-16.0) gm/dL Hct 30.1 L (34.0-46.0) % MCV 94.9 (80.0-100.0) fL MCH 32.1 (25.0-35.0) pg MCHC 33.8 (31.0-37.0) g/dL RDW 12.5 (11.5-15.5) % Plt Count 282 (150-450) k/uL Neutrophils % 51 % Lymphocytes % 29 % Monocytes % 15 % Eosinophils % 2 % Basophils % 1 % Neutrophils # 1.8 (1.3-7.7) k/uL Lymphocytes # 1.1 (1.0-4.8) k/uL Monocytes # 0.5 (0-1.0) k/uL Eosinophils # 0.1 (0-0.7) k/uL Basophils # 0.0 (0-0.2) k/uL Sodium 128 L (137-145) mmol/L Potassium 3.6 (3.5-5.1) mmol/L Chloride 97 L (98-107) mmol/L Carbon Dioxide 24 (22-30) mmol/L Anion Gap 7 mmol/L BUN 10 (7-17) mg/dL Creatinine 0.70 (0.52-1.04) mg/dL Est GFR (MDRD) Af Amer >60 (>60 ml/min/1.73 sqM) Est GFR (MDRD) Non-Af >60 (>60 ml/min/1.73 sqM) Glucose 87 (74-99) mg/dL Calcium 8.2 L (8.4-10.2) mg/dL - Radiology Data Radiology results: report reviewed Interpreted by me: Negative CT of the brain. No changes. Disposition Clinical Impression: Migraine Disposition: HOME SELF-CARE Condition: Good Instructions: Acute Headache (ED) Additional Instructions: Ice to rest, increase fluids. Follow-up with her primary care physician. Return to the emergency department if any alarming signs or symptoms occur. Referrals: Alexis Kramer Jr, DO [Primary Care Provider] - 1-2 days Time of Disposition: 02:10
[2017-05-25 01:05] LABS: Basophils % (A) 1 %; CH 33.3; CHCM 35.2; Eosinophils # (A) 0.1 k/uL (0-0.7); Eosinophils % (A) 2 %; HCT 30.1 % (34.0-46.0); HDW 2.39; HGB 10.2 gm/dL (11.4-16.0); Luc % (Auto) 3; Lymphocytes # (A) 1.1 k/uL (1.0-4.8); Lymphocytes % (A) 29 %; MCH 32.1 pg (25.0-35.0); MCHC 33.8 g/dL (31.0-37.0); MCV 94.9 fL (80.0-100.0); Mean Platelet Volume 6.9; Monocytes # (A) 0.5 k/uL (0-1.0); Monocytes % (A) 15 %; Neutrophils # (A) 1.8 k/uL (1.3-7.7); Neutrophils % (A) 51 %; RBC 3.17 m/uL (3.80-5.40); RDW 12.5 % (11.5-15.5); WBC 3.6 k/uL (3.8-10.6); WBC (Perox) 3.83
[2017-05-25 01:13] LABS: Anion Gap 7 mmol/L; Blood Urea Nitrogen 10 mg/dL (7-17); Calcium 8.2 mg/dL (8.4-10.2); Carbon Dioxide 24 mmol/L (22-30); Chloride 97 mmol/L (98-107); Glucose 87 mg/dL (74-99); Non-African American GFR(MDRD) >60 (>60 ml/min/1.73 sqM); Potassium 3.6 mmol/L (3.5-5.1); Sodium 128 mmol/L (137-145)
--- NOTE | 2017-05-25 02:06 | CT ---
EXAMINATION TYPE: CT brain wo/w con DATE OF EXAM: 05/25/2017 COMPARISON: 04/26/2017 HISTORY: Prior on synapse, ANDREWS, abnormal BP, history of hypertension CT DLP: 3296.40 mGycm Automated exposure control for dose reduction was used. CONTRAST: CT scan of the head is performed without and with IV Contrast, patient injected with 100 mL of Omnipa que 300. FINDINGS: Ventricles have fairly normal size. There is no mass effect nor midline shift. There is no sign of in tracranial hemorrhage. The calvarium is intact. I see no evidence of cerebral edema. IMPRESSION: Negative CT scan of the brain. No change.
[2017-05-25 02:14] VITALS: BP 143/65; PULSE 68
== END 2017-05-25 02:52 | disposition home or self-care (01) ==
LOC: EC 00:01
DX: G43.909 Migraine, unspecified, not intractable, without status migrainosus (principal); I10 Essential (primary) hypertension; G40.909 Epilepsy, unspecified, not intractable, without status epilepticus; Z86.73 Personal history of transient ischemic attack (TIA), and cerebral infarction without residual deficits; Z79.899 Other long term (current) drug therapy
CPT/HCPCS: 99285; 96374; 96375 ×2; 36415; 80048; 85025; 70470; J1200; J2360; J2765; Q9967

== ENCOUNTER 2017-07-03 15:33 | Emergency (ER) | payer OTHER ==
[2017-07-03 15:41] VITALS: TEMP 97.1
[2017-07-03] MEDS ORDERED: LORazepam 1 MG TAB PO STA (17:52)
--- NOTE | 2017-07-03 17:52 | ED ---
General Adult HPI - General Chief complaint: Headache Stated complaint: headache Time Seen by Provider: 07/03/17 17:45 Source: patient, RN notes reviewed, old records reviewed Mode of arrival: ambulatory Limitations: no limitations - History of Present Illness Initial comments: This is a 62-year-old female to the ER for evaluation. Patient presents today for evaluation regards to anxiety. Patient suffers from chronic anxiety. I also we will blood pressure. Patient took her blood pressure doesn't Gastric by 7 times and she states the pressure continued increase her oral status. EMS outpatient obsession with advised delusional reason for hospital transfer. Patient comes ER today for evaluation regarding complete continued symptoms. Patient states she does feel anxious. Denies any complaints or other symptoms of chest pain. - Related Data Home Medications Medication Instructions Recorded Confirmed levETIRAcetam [Keppra] 1,000 mg PO BID 12/19/13 06/13/17 carBAMazepine [Epitol] 200 mg PO BID 11/29/16 06/13/17 Previous Rx's Medication Instructions Recorded Omeprazole [PriLOSEC] 20 mg PO AC-BID #60 cap 06/03/17 Lidocaine [Lidoderm 5% Patch] 1 patch TRANSDERM DAILY #10 patch 06/07/17 Methocarbamol [Robaxin] 1,000 mg PO QID #20 tab 06/07/17 Naproxen 500 mg PO BID #30 tablet 06/07/17 LORazepam [Ativan] 1 mg PO BID PRN #30 tab 07/03/17 Allergies Allergy/AdvReac Type Severity Reaction Status Date / Time No Known Allergies Allergy Verified 07/03/17 15:41 Review of Systems ROS Statement: Those systems with pertinent positive or pertinent negative responses have been documented in the HPI. ROS Other: All systems not noted in ROS Statement are negative. Past Medical History Past Medical History: COPD, CVA/TIA, Hypertension, Pneumonia, Seizure Disorder Additional Past Medical History / Comment(s): Seizures/epilepsy and the patient' s left bouts of seizure was more than 6 years ago, COPD, chronic anemia History of Any Multi-Drug Resistant Organisms: None Reported Past Surgical History: No Surgical Hx Reported Additional Past Surgical History / Comment(s): Mediastinoscopy for a mediastinal lymph node enlargement Past Anesthesia/Blood Transfusion Reactions: No Reported Reaction Past Psychological History: Anxiety Smoking Status: Never smoker Past Alcohol Use History: None Reported Past Drug Use History: None Reported - Past Family History Mother Family Medical History: No Reported History General Exam Limitations: no limitations General appearance: alert, in no apparent distress, anxious Head exam: Present: atraumatic, normocephalic, normal inspection Eye exam: Present: normal appearance, PERRL, EOMI. Absent: scleral icterus, conjunctival injection, periorbital swelling ENT exam: Present: normal exam, mucous membranes moist Neck exam: Present: normal inspection. Absent: tenderness, meningismus, lymphadenopathy Respiratory exam: Present: normal lung sounds bilaterally. Absent: respiratory distress, wheezes, rales, rhonchi, stridor Cardiovascular Exam: Present: regular rate, normal rhythm, normal heart sounds. Absent: systolic murmur, diastolic murmur, rubs, gallop, clicks GI/Abdominal exam: Present: soft, normal bowel sounds. Absent: distended, tenderness, guarding, rebound, rigid Extremities exam: Present: normal inspection, full ROM, normal capillary refill. Absent: tenderness, pedal edema, joint swelling, calf tenderness Back exam: Present: normal inspection Neurological exam: Present: alert, oriented X3, CN II-XII intact Psychiatric exam: Present: normal affect, normal mood Skin exam: Present: warm, dry, intact, normal color. Absent: rash Course Vital Signs 07/03/17 15:38 Temperature 97.1 F L Pulse Rate 79 Respiratory 20 Rate Blood Pressure 128/64 O2 Sat by Pulse 100 Oximetry - Reevaluation(s) Reevaluation #1: 07/03/17 18:00 Patient is well-known to this emergency room. Patient medical records were thoroughly reviewed Medical Decision Making - Medical Decision Making 62 female to the ER for evaluation of anxiety, patient does suffer from anxiety , Sever for multiple recent hospital admissions as well as emergency room visits with no significant cause, patient can be discharged home with anxiolysis Disposition Clinical Impression: Acute anxiety Disposition: HOME SELF-CARE Condition: Good Instructions: Generalized Anxiety Disorder (ED), Anxiety (ED) Prescriptions: LORazepam [Ativan] 1 mg PO BID PRN #30 tab PRN Reason: Anxiety Referrals: Jordi Turner MD [Primary Care Provider] - 1-2 days
[2017-07-03 18:16] VITALS: BP 183/78; PULSE 75; RESP 16
== END 2017-07-03 18:15 | disposition home or self-care (01) ==
LOC: EC 15:33
DX: F41.9 Anxiety disorder, unspecified (principal); Z86.73 Personal history of transient ischemic attack (TIA), and cerebral infarction without residual deficits; Z86.69 Personal history of other diseases of the nervous system and sense organs; Z79.899 Other long term (current) drug therapy
CPT/HCPCS: 99284

== ENCOUNTER 2017-07-23 16:36 | Emergency (ER) | payer OTHER ==
[2017-07-23 16:43] VITALS: RESP 18; TEMP 97
[2017-07-23] MEDS ORDERED: LORazepam 1 MG TAB PO STA (16:53)
--- NOTE | 2017-07-23 17:06 | ED ---
General Adult HPI - General Chief complaint: Anxiety Stated complaint: Anxiety Time Seen by Provider: 07/23/17 16:40 Source: patient, EMS, RN notes reviewed, old records reviewed Mode of arrival: EMS Limitations: no limitations - History of Present Illness Initial comments: Chief complaint and history of present illness a 62-year-old female who again comes emergency room because of symptoms of anxiety. Patient reports that at 3: 30pm she felt anxious. She had some coughing causing reproducible anterior chest wall discomfort. She called the ambulance because it was not time for her to take her second dose of Ativan which was at 4 PM. Patient denies any headache no shortness of breath no GI/ problems no neuro deficits. - Related Data Home Medications Medication Instructions Recorded Confirmed levETIRAcetam [Keppra] 1,000 mg PO BID 12/19/13 07/23/17 carBAMazepine [Epitol] 200 mg PO BID 11/29/16 07/23/17 Previous Rx's Medication Instructions Recorded Omeprazole [PriLOSEC] 20 mg PO AC-BID #60 cap 06/03/17 LORazepam [Ativan] 1 mg PO BID PRN #30 tab 07/03/17 Allergies Allergy/AdvReac Type Severity Reaction Status Date / Time No Known Allergies Allergy Verified 07/19/17 19:57 Review of Systems ROS Statement: Those systems with pertinent positive or pertinent negative responses have been documented in the HPI. Review of systems. No complaints of headache or visual acuity changes. She does have a dry cough. Mild anterior chest wall discomfort which is readily reproducible by taking a deep breath coughing and mild palpation. No nausea no vomiting no neuro deficits. All systems are reviewed. Past medical problems anxiety musculoskeletal pain, COPD, TIA, hypertension, pneumonia, seizure disorder. Her last seizure was over 6 years ago. Denies any surgeries other than mediastinoscopy for mediastinal lymph node enlargement. Psychological history, anxiety. Nonsmoker non-drinker. Family history, no cancers. ROS Other: All systems not noted in ROS Statement are negative. Past Medical History Past Medical History: COPD, CVA/TIA, Hypertension, Pneumonia, Seizure Disorder Additional Past Medical History / Comment(s): Seizures/epilepsy and the patient' s left bouts of seizure was more than 6 years ago, COPD, chronic anemia History of Any Multi-Drug Resistant Organisms: None Reported Past Surgical History: No Surgical Hx Reported Additional Past Surgical History / Comment(s): Mediastinoscopy for a mediastinal lymph node enlargement Past Anesthesia/Blood Transfusion Reactions: No Reported Reaction Past Psychological History: Anxiety Smoking Status: Never smoker Past Alcohol Use History: None Reported Past Drug Use History: None Reported - Past Family History Mother Family Medical History: No Reported History General Exam - General Exam Comments Initial Comments: General: The patient is awake and alert, in no distress, and does not appear acutely ill. States she was anxious at home because she was coughing. Dry cough. Reproducible anterior chest wall discomfort. No sweats no radiation of pain. Vital signs afebrile. Pulse 89 respiratory rate 18 pulse ox 99% room air blood pressure 180/78. Mildly anxious upon arrival. Eye: Pupils are equal, round and reactive to light, extra-ocular movements are intact ; there is normal conjunctiva bilaterally. No signs of icterus. Ears, nose, mouth and throat: There are moist mucous membranes and no oral lesions. Neck: The neck is supple, there is no tenderness, no carotid bruit. Cardiovascular: There is a regular rate and rhythm. No murmur, rub or gallop is appreciated. Occasional dry cough. Reproducible anterior chest wall discomfort at the xiphoid region. Respiratory: Lungs are clear to auscultation, respirations are non-labored, breath sounds are equal. No wheezes, stridor, rales, or rhonchi. Gastrointestinal: Soft, non-distended, non-tender abdomen without masses or organomegaly noted. There is no rebound or guarding present. No CVA tenderness. Bowel sounds are unremarkable. Back: There is no tenderness to palpation in the midline. There is no obvious deformity. No rashes noted. No pain with palpation of her back. Musculoskeletal: Normal ROM, no tenderness, There is no pedal edema. There is no calf tenderness or swelling. Sensation intact. Pulses equal bilaterally 2+. Neurological: CN II-XII intact, There are no obvious motor or sensory deficits. Coordination appears grossly intact. Speech is normal. Denies balance problems. No focal or lateralizing findings found. Skin: Skin is warm and dry and no rashes or lesions are noted. Psychiatric: History of anxiety about health.. Limitations: no limitations Course Vital Signs 07/23/17 07/23/17 16:38 17:34 Temperature 97 F L Pulse Rate 82 94 Respiratory 18 18 Rate Blood Pressure 180/78 160/81 O2 Sat by Pulse 100 99 Oximetry Medical Decision Making - Medical Decision Making After the Ativan patient's blood pressure came down to 160 states she is feeling better. Would like to just stay one night to watch her blood pressure. I explained to her that her blood pressure is stable she's taken medications and went overly anxious to take the Ativan as provided as often as twice a day as directed and if needed one more time during the day by 6 hours. Patient was also advised Dr. family physician about counseling for anxiety. Disposition Clinical Impression: Anxiety about health Disposition: HOME SELF-CARE Condition: Stable Additional Instructions: Take Ativan as directed. Call follow-up with family physician and request counseling or psychiatric evaluation. Referrals: Jordi Turner MD [Primary Care Provider] - 1-2 days Time of Disposition: 17:56
[2017-07-23 17:34] VITALS: BP 160/81; PULSE 94
== END 2017-07-23 18:08 | disposition home or self-care (01) ==
LOC: EC 16:36
DX: F41.9 Anxiety disorder, unspecified (principal); Z86.73 Personal history of transient ischemic attack (TIA), and cerebral infarction without residual deficits; Z86.69 Personal history of other diseases of the nervous system and sense organs; Z79.899 Other long term (current) drug therapy
CPT/HCPCS: 99284

== ENCOUNTER 2017-07-25 16:21 | Emergency (ER) | payer OTHER ==
[2017-07-25 16:33] VITALS: TEMP 99
--- NOTE | 2017-07-25 17:41 | XR ---
EXAMINATION TYPE: XR chest 2V DATE OF EXAM: 07/25/2017 COMPARISON: Chest x-ray June 13, 2017 HISTORY: Difficulty in breathing and chest pain. TECHNIQUE: Frontal and lateral views of the chest are obtained. FINDINGS: There is no focal air space opacity, pleural effusion, or pneumothorax seen. The cardiac silhouette size is within normal limits. The osseous structures are intact. Asymmetric slight dimin ished size to left breast is redemonstrated. IMPRESSION: No acute cardiopulmonary process. No significant change from prior.
--- NOTE | 2017-07-25 18:15 | ED ---
General Adult HPI - General Chief complaint: Shortness of Breath Stated complaint: anxiety Time Seen by Provider: 07/25/17 17:15 Source: patient, RN notes reviewed Mode of arrival: EMS Limitations: no limitations - History of Present Illness Initial comments: This is a 62-year-old female who presents to the emergency department via EMS with chief complaint of shortness of breath and chest pain. Patient is well- known to the emergency department. She was seen here 2 days ago with similar symptoms due to anxiety. She ran out of her Ativan on Monday and has been without since. She states that today at around 3 PM while watching television she began to have chest pain and shortness of breath. She states this has been going on intermittently for a long time. She states she wishes to be admitted to the [facility] to be evaluated further. When I asked if patient was suicidal she stated "I was told to tell you that I am, but I am not." Patient denies suicidal or homicidal ideation. She denies hallucinations.Denies fever, chills, abdominal pain, nausea or vomiting, constipation or diarrhea, dysuria or hematuria, numbness or tingling, headache or vision changes. - Related Data Home Medications Medication Instructions Recorded Confirmed levETIRAcetam [Keppra] 1,000 mg PO BID 12/19/13 07/25/17 carBAMazepine [Epitol] 200 mg PO BID 11/29/16 07/25/17 Omeprazole [PriLOSEC] 20 mg PO AC-BRKFST 07/25/17 07/25/17 Previous Rx's Medication Instructions Recorded LORazepam [Ativan] 1 mg PO BID PRN #30 tab 07/03/17 LORazepam [Ativan] 1 mg PO BID #4 tab 07/25/17 Allergies Allergy/AdvReac Type Severity Reaction Status Date / Time No Known Allergies Allergy Verified 07/25/17 17:08 Review of Systems ROS Statement: Those systems with pertinent positive or pertinent negative responses have been documented in the HPI. ROS Other: All systems not noted in ROS Statement are negative. Past Medical History Past Medical History: COPD, CVA/TIA, Hypertension, Pneumonia, Seizure Disorder Additional Past Medical History / Comment(s): Seizures/epilepsy and the patient' s left bouts of seizure was more than 6 years ago, COPD, chronic anemia History of Any Multi-Drug Resistant Organisms: None Reported Past Surgical History: No Surgical Hx Reported Additional Past Surgical History / Comment(s): Mediastinoscopy for a mediastinal lymph node enlargement Past Anesthesia/Blood Transfusion Reactions: No Reported Reaction Past Psychological History: Anxiety Smoking Status: Never smoker Past Alcohol Use History: None Reported Past Drug Use History: None Reported - Past Family History Mother Family Medical History: No Reported History General Exam - General Exam Comments Initial Comments: General: Awake and alert, well-developed; in no apparent distress. Lying on ED stretcher gently shaking. HEENT: Head atraumatic, normocephalic. Pupils are equal, round and reactive to light. Extraocular movements intact. Oropharynx moist without erythema or exudate. Neck: Supple. Normal ROM. Cardiovascular: Regular rate and rhythm. No murmurs, rubs or gallops. Chest symmetrical. Respiratory: Lungs clear to auscultation bilaterally. No wheezes, rales or rhonchi. Normal respiratory effort with no use of accessory muscles. Abdomen: Soft, non-tender, non-distended. No rigidity, rebound or guarding. Normal bowel sounds in all 4 quadrants. Musculoskeletal: Normal ROM, no tenderness bilateral upper and lower extremities. No pedal edema. Skin: [place], warm and dry without rashes or lesions. Neurological: Alert and oriented x3. CN II-XII grossly intact. Speech is fluent and answers are appropriate. No focal neuro deficits. Psychiatric: Normal mood and affect. No overt signs of depression or anxiety noted. Limitations: no limitations Course Vital Signs 07/25/17 07/25/17 07/25/17 16:28 17:56 18:51 Temperature 99.0 F Pulse Rate 87 77 72 Respiratory 20 16 16 Rate Blood Pressure 164/90 154/87 160/80 O2 Sat by Pulse 100 98 97 Oximetry EKG Findings - EKG Comments: EKG Findings:: EKG performed at 18:47:46. Normal sinus rhythm. Ventricular rate 73 bpm, AL interval 176, QRS duration 74, QT/QTC 378/416 Medical Decision Making - Medical Decision Making This is a 62-year-old female who presents today to the emergency department for evaluation shortness of breath and chest pain. Patient was seen here 2 days ago with similar symptoms that was attributed to anxiety. Patient has been out of her Ativan for the past 2 days. Chest x-ray revealed no acute abnormalities. Troponin was negative. EKG showed normal sinus rhythm. Patient requested to have a psychiatric evaluation as she would like to be admitted to the [facility]. Patient was evaluated by EPS who recommended discharge home. Patient does not meet any admission criteria. 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 Recommended patient to follow up with her primary care provider. She is in no acute distress at this time. She is in agreement with plan and voices understanding. All questions were answered. - Lab Data Lab Results 07/25/17 07/25/17 Range/Units 17:47 21:22 Troponin I <0.012 (0.000-0.034) ng/mL Serum Alcohol <10 mg/dL - Radiology Data Radiology results: report reviewed Chest x-ray impression: No acute cardiopulmonary process. No significant change from prior. Disposition Clinical Impression: Anxiety about health Disposition: HOME SELF-CARE Condition: Good Instructions: Anxiety (ED) Additional Instructions: Please take medications as prescribed. Please follow up with primary care provider within 1-2 days. Return to emergency department if symptoms should worsen or any concerns arise. Prescriptions: LORazepam [Ativan] 1 mg PO BID #4 tab Referrals: Jordi Turner MD [Primary Care Provider] - 1-2 days Time of Disposition: 23:04
[2017-07-25] MEDS ORDERED: LORazepam 1 MG TAB PO STA (23:39)
[2017-07-25 23:46] VITALS: BP 160/70; PULSE 105; RESP 18
== END 2017-07-25 23:45 | disposition home or self-care (01) ==
LOC: EC 16:21
DX: F41.9 Anxiety disorder, unspecified (principal); R07.9 Chest pain, unspecified; G40.909 Epilepsy, unspecified, not intractable, without status epilepticus; Z86.73 Personal history of transient ischemic attack (TIA), and cerebral infarction without residual deficits; Z79.899 Other long term (current) drug therapy
CPT/HCPCS: 36415; 71020; 80320; 84484; 93005; 99285

== ENCOUNTER → 2017-08-09 | Outpatient (CLI) | payer OTHER ==
--- NOTE | 2017-08-09 08:05 | US ---
EXAMINATION TYPE: US abdomen complete DATE OF EXAM: 08/09/2017 COMPARISON: CT aorta May 19, 2017 CLINICAL HISTORY: R10.12 Left Upper Quad Pain. LUQ pain EXAM MEASUREMENTS: Liver Length: 12.5 cm Gallbladder Wall: 0.3 cm CBD: 0.3 cm Spleen: 7.4 cm Right Kidney: 9.7 x 2.9 x 4.6 cm Left Kidney: 8.8 x 4.2 x 4.3 cm Pancreas: Obscured by bowel gas Liver: appears wnl Gallbladder: multiple stones Evidence for sonographic Chinchilla's sign: Yes CBD: wnl Spleen: wnl Right Kidney: no evidence of hydronephrosis or mass Left Kidney: no evidence of hydronephrosis or mass as visualized Upper IVC: wnl Abd Aorta: visualized portions appear wnl The liver is homogenous. The intrahepatic portion of the IVC and visualized abdominal aorta are with in normal limits. There is evidence of shadowing mobile cholelithiasis. Common bile duct is unremar kable. Pancreas is obscured by overlying bowel gas on today's ultrasound. The spleen is unremarkable . Kidneys are symmetric and free of hydronephrosis. No renal lesions are seen. IMPRESSION: Gallstones without secondary ultrasound evidence for acute cholecystitis. No suspicious f inding is seen to account for patient's symptoms of left upper quadrant pain.
== END | disposition home or self-care (01) ==
LOC: RADUSWWP 06:43
PROVIDERS: ATTEND Family Medicine
DX: K80.80 Other cholelithiasis without obstruction (principal)
CPT/HCPCS: 76700

== ENCOUNTER → 2018-01-16 | Outpatient (CLI) | payer OTHER ==
--- NOTE | 2018-01-16 16:05 | XR ---
Lumbosacral spine HISTORY: Low back pain 5 views of the lumbosacral spine Surgical clips present right upper quadrant. There is no spondylolysis or spondylolisthesis. Lumbar v ertebral bodies show preserved height, there is decreased bone mineralization. Multilevel spondylosis is present with loss of disc height at multiple levels. Sclerosis present in the posterior elements. IMPRESSION: Degenerative disc disease and facet arthropathy. Osteopenia.
== END ==
LOC: RADXRMAIN 10:38
PROVIDERS: ATTEND Family Medicine
DX: M51.36 Other intervertebral disc degeneration, lumbar region (principal); M85.88 Other specified disorders of bone density and structure, other site
CPT/HCPCS: 72110

== ENCOUNTER → 2018-10-19 | Outpatient (CLI) | payer OTHER ==
--- NOTE | 2018-10-19 12:48 | XR ---
EXAMINATION TYPE: XR ribs bilateral DATE OF EXAM: 10/19/2018 COMPARISON: NONE HISTORY: Pain TECHNIQUE: 4 views of the ribs were obtained bilaterally with a total of 8 views submitted. FINDINGS: There is a deformity along the lateral margin the right fifth rib which appears chronic. No acute displaced rib fracture seen. IMPRESSION: 1. No acute displaced rib fracture. 2. Findings suggest remote trauma involving the right rib cage.
== END ==
LOC: RADXRMAIN 10:33
PROVIDERS: ATTEND Family Medicine
DX: R07.82 Intercostal pain (principal)
CPT/HCPCS: 71110

== ENCOUNTER → 2019-03-26 | Outpatient (CLI) | payer OTHER ==
--- NOTE | 2019-03-26 10:44 | US ---
EXAMINATION TYPE: US abdomen complete DATE OF EXAM: 03/26/2019 COMPARISON: US 2018 CLINICAL HISTORY: R10.84 Generalized abdominal pain. Abdomen pain and bloating x 2 years, history of cholecystectomy EXAM MEASUREMENTS: Liver Length: 11.9 cm Gallbladder Wall: surgically absent CBD: 0.5 cm Spleen: 7.8 cm Right Kidney: 9.8 x 4.1 x 4.2 cm Left Kidney: 9.1 x 4.0 x 4.0 cm Pancreas: visualized portions wnl, limited by overlying midline bowel gas Liver: mildly heterogeneous Gallbladder: surgically absent Evidence for sonographic Chinchilla's sign: yes CBD: visualized portions wnl, limited distally by overlying bowel gas Spleen: visualized portions wnl, limited by overlying bowel gas Right Kidney: no hydronephrosis or masses seen Left Kidney: no hydronephrosis or masses seen Upper IVC: wnl Abd Aorta: visualized portions wnl, limited by overlying midline bowel gas The visualized liver is mildly heterogeneous hyperechoic. No significant change from prior. No new as cites. The intrahepatic portion of the IVC and proximal abdominal aorta are within normal limits. Gal lbladder is noted surgically absent. Common bile duct is unremarkable. The visualized portions of t he pancreas are homogenous. The spleen is unremarkable. Kidneys are symmetric and free of hydroneph rosis. No renal lesions are seen. IMPRESSION: Suboptimal study without acute findings seen to account for patient's symptoms. No ascite s evident on images saved. Interval cholecystectomy noted.
== END | disposition home or self-care (01) ==
LOC: RADUSWWP 08:17
PROVIDERS: ATTEND Family Medicine
DX: R10.84 Generalized abdominal pain (principal); Z90.49 Acquired absence of other specified parts of digestive tract
CPT/HCPCS: 76700

== ENCOUNTER → 2019-04-09 | Outpatient (CLI) | payer OTHER ==
--- NOTE | 2019-04-09 11:30 | EST ---
EXERCISE STRESS AGE: 64 SEX: F HT: 63" WT: 131 PROTOCOL: Fred Stress Test STAGE: 2 DURATION OF EXERCISE: 3:30 HEART RATE REST: 101 BLOOD PRESSURE REST: 139/95 MAXIMUM HEART RATE ACHIEVED: 145 MAXIMUM BLOOD PRESSURE: 175/78 85% MPHR: 133 100% MPHR: 157 METS: 5.2 INDICATIONS: Chest pain. CLINICAL INFORMATION: STRESS DATA: Heart rate 101, pressure is 139/95 mmHg. Baseline EKG showed sinus mechanism. The patient exercised on the treadmill according to Fred protocol for a total of 3 minutes and 30 seconds and achieved 5.2 METS. Max heart rate was 145, which is about 92% of maximum predicted heart rate. Maximum blood pressure was 175/78 mmHg. Clinically, the patient did not have any symptoms of chest pain or discomfort but developed shortness of breath. The EKG did not show any significant ST or T-wave abnormalities concerning for ischemia. CONCLUSION: 1. Average exercise tolerance. 2. Normal EKG in response to exercise. MMODL / IJN: [id number] /
== END | disposition home or self-care (01) ==
LOC: RADNMMAIN 08:38
PROVIDERS: ATTEND Family Medicine
DX: R07.9 Chest pain, unspecified (principal); I10 Essential (primary) hypertension
CPT/HCPCS: 93017

== ENCOUNTER → 2021-04-28 | Outpatient (CLI) | payer OTHER ==
--- NOTE | 2021-04-29 13:43 | MM ---
Reason for exam: screening (asymptomatic). Last mammogram was performed 5 years and 4 months ago. History: Patient is postmenopausal and is nulliparous. Physical Findings: A clinical breast exam by your physician is recommended on an annual basis and results should be correlated with mammographic findings. MG 3D Screening Mammo W/Cad Bilateral CC and MLO view(s) were taken. Prior study comparison: January 11, 2016, bilateral MG screening mammo w CAD. July 23, 2013, bilateral digital screening mammo w/CAD. The breast tissue is extremely dense which could obscure a lesion on mammography. Stable benign calcifications. There is no discrete abnormality. No significant changes when compared with prior studies. ASSESSMENT: Benign, BI-RAD 2 RECOMMENDATION: Routine screening mammogram of both breasts in 1 year.
== END | disposition home or self-care (01) ==
LOC: RADMAMWWP 12:50
PROVIDERS: ATTEND Family Medicine
DX: Z12.31 Encounter for screening mammogram for malignant neoplasm of breast (principal)
CPT/HCPCS: 77063; 77067

== ENCOUNTER → 2024-11-11 | Outpatient (CLI) | payer MEDICARE, OTHER ==
--- NOTE | 2024-11-11 11:18 | XR ---
EXAMINATION TYPE: XR chest 2V DATE OF EXAM: 11/11/2024 10:37 AM COMPARISON: None. CLINICAL INDICATION: Female, 69 years old with history of R05.9 Cough R07.81 Rib pain, TECHNIQUE: XR chest 2V view(s) obtained. FINDINGS: The heart size is normal. The pulmonary vasculature is normal. The lungs are clear. IMPRESSION: 1. No acute pulmonary process. [facility], , 11/11/2024 11:16 AM
== END | disposition home or self-care (01) ==
LOC: RADXRMAIN 10:24
DX: R05.9 Cough, unspecified (principal); R07.81 Pleurodynia
CPT/HCPCS: 71046